=== PATIENT | male | born 1940 | race Caucasian/White ===

== ENCOUNTER → 2016-12-01 | Outpatient (CLI) | payer MEDICARE, OTHER | LOC: OD 08:55 | PROVIDERS: ATTEND Family Medicine | DX: E11.9 Type 2 diabetes mellitus without complications (principal) | CPT/HCPCS: 36415; 83036 ==

== ENCOUNTER → 2017-05-26 | Outpatient (CLI) | payer MEDICARE, OTHER ==
[2017-05-26 09:47] LABS: ANION GAP 10 (5-19); BLOOD UREA NITROGEN 32 mg/dL (7-20); CALCIUM 9.7 mg/dL (8.4-10.2); CARBON DIOXIDE 28 mmol/L (22-30); CHLORIDE 103 mmol/L (98-107); CHOLESTEROL 99.15 mg/dL (0-200); CREATININE RESULT 1.66 mg/dL (0.52-1.25); Direct HDL 34 mg/dL (>40); GLUCOSE 101 mg/dL (75-110); POTASSIUM 4.6 mmol/L (3.6-5.0); SODIUM 141.4 mmol/L (137-145); TRIGLYCERIDES 97 mg/dL (<150)
[2017-05-26 09:58] LABS: DIRECT LDL 49 mg/dL (<100)
== END ==
LOC: OD 08:30
PROVIDERS: ATTEND Family Medicine
DX: E11.9 Type 2 diabetes mellitus without complications (principal); E78.5 Hyperlipidemia, unspecified; I10 Essential (primary) hypertension; Z79.899 Other long term (current) drug therapy
CPT/HCPCS: 36415; 80048; 80061; 82043; 83036; 84443

== ENCOUNTER → 2017-09-14 | Outpatient (CLI) | payer MEDICARE, OTHER | LOC: OD 10:49 | PROVIDERS: ATTEND Family Medicine | DX: E11.9 Type 2 diabetes mellitus without complications (principal) | CPT/HCPCS: 36415; 83036 ==

== ENCOUNTER 2017-11-09 16:56 | Inpatient (IN) | payer MEDICARE, OTHER ==
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
[2017-11-09 19:58] LABS: ABSOLUTE EOSINOPHILS # (AUTO) 0.2 10^3/uL (0.0-0.6); ABSOLUTE MONOCYTES (AUTO) 0.9 10^3/uL (0.1-1.4); ABSOLUTE NEUT (AUTO) 5.1 10^3/uL (1.7-8.2); BASOPHILS % (AUTO) 0.3 % (0-2); EOSINOPHILS % (AUTO) 2.2 % (0-6); HEMATOCRIT 43.8 % (37.9-51.0); HEMOGLOBIN 14.9 g/dL (13.5-17.0); LYMPHOCYTES % (AUTO) 32.3 % (13-45); MEAN CORPUSCULAR HEMOGLOBIN 29.8 pg (27.0-33.4); MEAN CORPUSCULAR HGB CONC 33.9 g/dL (32.0-36.0); MEAN CORPUSCULAR VOLUME 88 fl (80-97); MONOCYTES % (AUTO) 9.9 % (3-13); PLATELET COUNT 231 10^3/uL (150-450); RED BLOOD COUNT 4.99 10^6/uL (4.35-5.55); RED CELL DISTRIBUTION WIDTH 12.8 % (11.5-14.0); SEGMENTED NEUTROPHILS % (AUTO) 55.3 % (42-78); TOTAL CELLS COUNTED % (AUTO) 100 %; WHITE BLOOD COUNT 9.3 10^3/uL (4.0-10.5)
--- NOTE | 2017-11-09 20:11 | RADIOLOGY REPORT (SQ) ---
EXAM DESCRIPTION: CT HEAD WITHOUT COMPLETED DATE/TIME: 11/09/2017 7:59 pm REASON FOR STUDY: ams COMPARISON: None. TECHNIQUE: Axial images acquired through the brain without intravenous contrast. Images reviewed wi th bone, brain and subdural windows. Additional sagittal and coronal reconstructions were generated. Images stored on PACS. All CT scanners at this facility use dose modulation, iterative reconstruction, and/or weight based d osing when appropriate to reduce radiation dose to as low as reasonably achievable (ALARA). [facility]: Dose Right [facility]: CareDose [facility]: Dose Right [facility]: Teradose 4D [facility]: Smart [employer] RADIATION DOSE: CT Rad equipment meets quality standard of care and radiation dose reduction techniq ues were employed. CTDIvol: 53.2 mGy. DLP: 1097 mGy-cm. mGy. LIMITATIONS: None. FINDINGS: VENTRICLES: Prominent ventricles secondary to involutional atrophy. CEREBRUM: Cortical atrophy. No masses. No hemorrhage. No midline shift. No evidence for acute inf arction. Normal kelly/white matter differentiation. No areas of low density in the white matter. CEREBELLUM: No masses. No hemorrhage. No alteration of density. No evidence for acute infarction. EXTRAAXIAL SPACES: No fluid collections. No masses. ORBITS AND GLOBE: No intra- or extraconal masses. Normal contour of globe without masses. CALVARIUM: No fracture. PARANASAL SINUSES: No fluid or mucosal thickening. SOFT TISSUES: No mass or hematoma. OTHER: No other significant finding. IMPRESSION: Involutional changes of aging with no acute intracranial imaging findings. EVIDENCE OF ACUTE STROKE: NO. COMMENT: Quality ID # [id number]: Final reports with documentation of one or more dose reduction techniques (e.g., Automated exposure control, adjustment of the mA and/or kV according to patient size, use of iterative reconstruction technique) TECHNICAL DOCUMENTATION: JOB ID: [id number] [employer]- All Rights Reserved Reading location - IP/workstation name: [email or web address]
[2017-11-09 20:21] LABS: ALANINE AMINOTRANSFERASE 35 U/L (21-72); ALBUMIN 4.4 g/dL (3.5-5.0); ALKALINE PHOSPHATASE 110 U/L (38-126); ANION GAP 11 (5-19); ASPARTATE AMINO TRANSFERASE 18 U/L (17-59); BILIRUBIN,DIRECT 0.1 mg/dL (0.0-0.4); BILIRUBIN,TOTAL 0.5 mg/dL (0.2-1.3); BLOOD UREA NITROGEN 42 mg/dL (7-20); CALCIUM 10.3 mg/dL (8.4-10.2); CARBON DIOXIDE 29 mmol/L (22-30); CHLORIDE 97 mmol/L (98-107); CREATINE KINASE 58 U/L (55-170); GLUCOSE 104 mg/dL (75-110); SODIUM 136.8 mmol/L (137-145); TOTAL PROTEIN 6.9 g/dL (6.3-8.2)
[2017-11-09 20:33] LABS: CREATINE KINASE MB 0.35 ng/mL (<4.55)
[2017-11-09 20:36] LABS: TROPONIN I < 0.012 ng/mL
--- NOTE | 2017-11-09 20:37 | RADIOLOGY REPORT (SQ) ---
EXAM DESCRIPTION: CHEST PA/LAT COMPLETED DATE/TIME: 11/09/2017 8:04 pm REASON FOR STUDY: ams COMPARISON: None. EXAM PARAMETERS: NUMBER OF VIEWS: two views TECHNIQUE: Digital Frontal and Lateral radiographic views of the chest acquired. RADIATION DOSE: NA LIMITATIONS: none FINDINGS: LUNGS AND PLEURA: There is mild opacification in the left base laterally involving the cos tophrenic angle. MEDIASTINUM AND HILAR STRUCTURES: No masses or contour abnormalities. HEART AND VASCULAR STRUCTURES: Heart normal size. No evidence for failure. BONES: No acute findings. HARDWARE: None in the chest. OTHER: No other significant finding. IMPRESSION: Cannot exclude a limited infiltrate in the left base. TECHNICAL DOCUMENTATION: JOB ID: [id number] [employer]- All Rights Reserved Reading location - IP/workstation name: [email or web address]
[2017-11-09 20:51] LABS: APPEARANCE,URINE CLEAR; BILIRUBIN,URINE NEGATIVE (NEGATIVE); COLOR,URINE STRAW; GLUCOSE, URINE NEGATIVE (NEGATIVE); KETONES,URINE NEGATIVE (NEGATIVE); PROTEIN,URINE NEGATIVE (NEGATIVE)
[2017-11-09 20:52] LABS: LEUKOCYTE ESTERASE,URINE NEGATIVE (NEGATIVE); NITRITE,URINE NEGATIVE (NEGATIVE); UROBILINOGEN,URINE NEGATIVE mg/dL (<2.0)
[2017-11-09] MEDS ORDERED: LORAZEPAM INJ 2 MG/1 ML VIAL IM ONE (21:54)
[2017-11-09] MEDS ORDERED: RISPERIDONE 0.25 MG TABLET PO ONE (22:44)
[2017-11-09] MEDS ORDERED: MIRTAZAPINE 15 MG TABLET PO ONE (22:44)
[2017-11-10] MEDS ORDERED: MAGNESIUM HYDROXIDE SUSP 30 ML UDCUP PO PRN (04:53)
[2017-11-10] MEDS ORDERED: DEXTROSE 50%-WATER 25 GM/50 ML DISP.SYRIN IV PRN ×2 (04:53)
[2017-11-10] MEDS ORDERED: INSULIN LISPRO 100 UNIT/ML 3 ML VIAL SUBCUT PRN (04:53)
[2017-11-10] MEDS ORDERED: MAG HYDROX/AL HYDROX/SIMETH SUSP 30 ML UDCUP PO PRN (04:53)
[2017-11-10] MEDS ORDERED: IPRATROPIUM/ALBUTEROL 0.5-2.5 MG/3 ML AMPUL NEB PRN (04:53)
[2017-11-10] MEDS ORDERED: DEXTROSE 40% GEL 15 GM TUBE PO PRN ×2 (04:53)
[2017-11-10] MEDS ORDERED: ACETAMINOPHEN 325 MG TABLET PO PRN (04:53)
[2017-11-10] MEDS ORDERED: GLUCAGON,HUMAN RECOMB 1 MG INJ IM PRN (04:53)
[2017-11-10 06:15] LABS: ABSOLUTE EOSINOPHILS # (AUTO) 0.2 10^3/uL (0.0-0.6); ABSOLUTE LYMPHOCYTES (AUTO) 2.6 10^3/uL (0.5-4.7); ABSOLUTE MONOCYTES (AUTO) 0.9 10^3/uL (0.1-1.4); ABSOLUTE NEUT (AUTO) 4.9 10^3/uL (1.7-8.2); BASOPHILS % (AUTO) 0.2 % (0-2); EOSINOPHILS % (AUTO) 2.4 % (0-6); HEMATOCRIT 40.5 % (37.9-51.0); HEMOGLOBIN 14.2 g/dL (13.5-17.0); LYMPHOCYTES % (AUTO) 29.9 % (13-45); MEAN CORPUSCULAR HEMOGLOBIN 30.3 pg (27.0-33.4); MEAN CORPUSCULAR VOLUME 87 fl (80-97); MONOCYTES % (AUTO) 10.1 % (3-13); PLATELET COUNT 210 10^3/uL (150-450); RED BLOOD COUNT 4.68 10^6/uL (4.35-5.55); RED CELL DISTRIBUTION WIDTH 12.7 % (11.5-14.0); SEGMENTED NEUTROPHILS % (AUTO) 57.4 % (42-78); TOTAL CELLS COUNTED % (AUTO) 100 %; WHITE BLOOD COUNT 8.6 10^3/uL (4.0-10.5)
[2017-11-10 06:25] LABS: ANION GAP 11 (5-19); BLOOD UREA NITROGEN 38 mg/dL (7-20); CALCIUM 9.9 mg/dL (8.4-10.2); CARBON DIOXIDE 28 mmol/L (22-30); CHLORIDE 98 mmol/L (98-107); GLUCOSE 108 mg/dL (75-110); POTASSIUM 3.8 mmol/L (3.6-5.0); SODIUM 137.2 mmol/L (137-145)
[2017-11-10 06:37] LABS: CREATINE KINASE MB 0.53 ng/mL (<4.55)
[2017-11-10 06:39] LABS: TROPONIN I < 0.012 ng/mL
[2017-11-10] MEDS: NORMAL SALINE 1000 ML 1,000 ML IV PRN ×2 (06:41→11:50)
[2017-11-10] MEDS: HEPARIN SOD (PORCINE) 5,000 UNIT/ML 1 ML SYRINGE SUBCUT SCH ×3 (06:42→22:04)
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
--- NOTE | 2017-11-10 07:39 | EKG REPORT ---
SEVERITY:- ABNORMAL ECG - SINUS RHYTHM LEFT ANTERIOR FASCICULAR BLOCK NONSPECIFIC ST-T CHANGES- INFERIOR LEADS : Confirmed by: Ghassan Wilson MD 10-Nov-2017 07:38:43
[2017-11-10] MEDS ORDERED: DOCUSATE SODIUM 100 MG CAPSULE PO SCH (10:00)
[2017-11-10] MEDS ORDERED: RISPERIDONE 0.5 MG TAB.RAPDIS PO SCH (10:00)
[2017-11-10] MEDS ORDERED: CITALOPRAM HYDROBROMIDE 20 MG TABLET PO SCH (10:00)
[2017-11-10] MEDS: DOCUSATE SODIUM 100 MG CAPSULE PO SCH ×2 (10:52→18:09)
[2017-11-10] MEDS: TAMSULOSIN HCL 0.4 MG CAP.SR.24H PO SCH (10:52)
[2017-11-10] MEDS: FINASTERIDE 5 MG TABLET PO SCH (10:53)
[2017-11-10] MEDS: ASPIRIN 325 MG TABLET, ENT COATED PO SCH (10:53)
[2017-11-10] MEDS: SIMVASTATIN 10 MG TABLET PO SCH (10:54)
[2017-11-10 11:43] LABS: CREATINE KINASE MB 0.58 ng/mL (<4.55)
[2017-11-10 11:52] LABS: TROPONIN I < 0.012 ng/mL
[2017-11-10] MEDS ORDERED: LORAZEPAM 0.5 MG TABLET PO PRN (17:05)
[2017-11-10] MEDS ORDERED: LORAZEPAM INJ 2 MG/1 ML VIAL IV PRN (17:08)
[2017-11-10] MEDS ORDERED: GLIMEPIRIDE 1 MG TABLET PO ONE ×2 (17:30→18:30)
[2017-11-10 17:43] LABS: CREATINE KINASE MB 0.62 ng/mL (<4.55)
[2017-11-10 17:47] LABS: TROPONIN I < 0.012 ng/mL
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
[2017-11-10] MEDS ORDERED: MIRTAZAPINE 15 MG TABLET PO SCH (22:00)
[2017-11-10] MEDS: BUSPIRONE HCL 10 MG TABLET PO SCH (22:04)
[2017-11-10] MEDS: RISPERIDONE 1 MG TABLET PO SCH (22:05)
[2017-11-10] MEDS: TRAZODONE HCL 50 MG TABLET PO SCH (22:05)
[2017-11-10] MEDS: MEMANTINE HCL 10 MG TABLET PO SCH (22:05)
[2017-11-11 05:08] LABS: ABSOLUTE EOSINOPHILS # (AUTO) 0.2 10^3/uL (0.0-0.6); ABSOLUTE LYMPHOCYTES (AUTO) 2.5 10^3/uL (0.5-4.7); ABSOLUTE MONOCYTES (AUTO) 0.8 10^3/uL (0.1-1.4); ABSOLUTE NEUT (AUTO) 4.5 10^3/uL (1.7-8.2); BASOPHILS % (AUTO) 0.3 % (0-2); HEMATOCRIT 40.4 % (37.9-51.0); HEMOGLOBIN 13.7 g/dL (13.5-17.0); LYMPHOCYTES % (AUTO) 30.6 % (13-45); MEAN CORPUSCULAR HEMOGLOBIN 29.9 pg (27.0-33.4); MEAN CORPUSCULAR VOLUME 88 fl (80-97); MONOCYTES % (AUTO) 10.2 % (3-13); PLATELET COUNT 211 10^3/uL (150-450); RED BLOOD COUNT 4.59 10^6/uL (4.35-5.55); RED CELL DISTRIBUTION WIDTH 12.7 % (11.5-14.0); SEGMENTED NEUTROPHILS % (AUTO) 55.9 % (42-78); TOTAL CELLS COUNTED % (AUTO) 100 %; WHITE BLOOD COUNT 8.1 10^3/uL (4.0-10.5)
[2017-11-11] MEDS: HEPARIN SOD (PORCINE) 5,000 UNIT/ML 1 ML SYRINGE SUBCUT SCH ×3 (05:40→21:46)
[2017-11-11 06:00] LABS: ANION GAP 11 (5-19); BLOOD UREA NITROGEN 29 mg/dL (7-20); CALCIUM 9.7 mg/dL (8.4-10.2); CARBON DIOXIDE 26 mmol/L (22-30); CHLORIDE 101 mmol/L (98-107); GLUCOSE 104 mg/dL (75-110); POTASSIUM 3.8 mmol/L (3.6-5.0); SODIUM 137.5 mmol/L (137-145)
[2017-11-11] MEDS ORDERED: NORMAL SALINE 1000 ML 1,000 ML IV PRN (07:39)
[2017-11-11] MEDS ORDERED: ASPIRIN 325 MG TABLET PO SCH (10:00)
[2017-11-11] MEDS ORDERED: (PENDING PHARMACY ID) (Telmisartan/Hydrochlorothiazid [Micardis Hct 80-25 Mg Tablet] 1 TAB PO SCH (10:00)
[2017-11-11] MEDS: SIMVASTATIN 10 MG TABLET PO SCH (10:48)
[2017-11-11] MEDS: DOCUSATE SODIUM 100 MG CAPSULE PO SCH ×2 (10:48→18:39)
[2017-11-11] MEDS: HYDROCHLOROTHIAZIDE 25 MG TABLET PO SCH (10:48)
[2017-11-11] MEDS: ASPIRIN 325 MG TABLET, ENT COATED PO SCH (10:48)
[2017-11-11] MEDS: DONEPEZIL HCL 5 MG TABLET PO SCH (10:49)
[2017-11-11] MEDS: RISPERIDONE 1 MG TABLET PO SCH ×2 (10:49→21:46)
[2017-11-11] MEDS: MEMANTINE HCL 10 MG TABLET PO SCH ×2 (10:49→21:47)
[2017-11-11] MEDS: CELECOXIB 200 MG CAPSULE PO SCH (10:49)
[2017-11-11] MEDS: BUSPIRONE HCL 10 MG TABLET PO SCH ×2 (10:49→21:47)
[2017-11-11] MEDS: FINASTERIDE 5 MG TABLET PO SCH (10:49)
[2017-11-11] MEDS: LOSARTAN POTASSIUM 50 MG TABLET PO SCH (10:50)
[2017-11-11] MEDS: POTASSIUM CHLORIDE 10 MEQ TABLET.SA PO SCH (10:50)
[2017-11-11] MEDS: TAMSULOSIN HCL 0.4 MG CAP.SR.24H PO SCH (10:50)
[2017-11-11] MEDS: CITALOPRAM HYDROBROMIDE 20 MG TABLET PO SCH (10:50)
[2017-11-11] MEDS: GLIMEPIRIDE 1 MG TABLET PO SCH ×2 (10:54→18:38)
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
[2017-11-11] MEDS: TRAZODONE HCL 50 MG TABLET PO SCH (21:47)
[2017-11-12 06:16] LABS: ANION GAP 9 (5-19); BLOOD UREA NITROGEN 27 mg/dL (7-20); CALCIUM 9.4 mg/dL (8.4-10.2); CARBON DIOXIDE 27 mmol/L (22-30); CHLORIDE 102 mmol/L (98-107); GLUCOSE 90 mg/dL (75-110); POTASSIUM 3.7 mmol/L (3.6-5.0); SODIUM 137.8 mmol/L (137-145)
[2017-11-12] MEDS: HEPARIN SOD (PORCINE) 5,000 UNIT/ML 1 ML SYRINGE SUBCUT SCH ×3 (06:59→21:21)
[2017-11-12] MEDS: LOSARTAN POTASSIUM 50 MG TABLET PO SCH (11:23)
[2017-11-12] MEDS: HYDROCHLOROTHIAZIDE 25 MG TABLET PO SCH (11:23)
[2017-11-12] MEDS: POTASSIUM CHLORIDE 10 MEQ TABLET.SA PO SCH (11:24)
[2017-11-12] MEDS: RISPERIDONE 1 MG TABLET PO SCH ×2 (11:24→21:22)
[2017-11-12] MEDS: DOCUSATE SODIUM 100 MG CAPSULE PO SCH ×2 (11:24→17:51)
[2017-11-12] MEDS: MEMANTINE HCL 10 MG TABLET PO SCH ×2 (11:25→21:22)
[2017-11-12] MEDS: CITALOPRAM HYDROBROMIDE 20 MG TABLET PO SCH (11:25)
[2017-11-12] MEDS: DONEPEZIL HCL 5 MG TABLET PO SCH (11:25)
[2017-11-12] MEDS: ASPIRIN 325 MG TABLET, ENT COATED PO SCH (11:25)
[2017-11-12] MEDS: CELECOXIB 200 MG CAPSULE PO SCH (11:26)
[2017-11-12] MEDS: GLIMEPIRIDE 1 MG TABLET PO SCH ×2 (11:26→17:51)
[2017-11-12] MEDS: BUSPIRONE HCL 10 MG TABLET PO SCH ×2 (11:26→21:22)
[2017-11-12] MEDS: SIMVASTATIN 10 MG TABLET PO SCH (11:26)
[2017-11-12] MEDS: TAMSULOSIN HCL 0.4 MG CAP.SR.24H PO SCH (11:27)
[2017-11-12] MEDS: FINASTERIDE 5 MG TABLET PO SCH (11:27)
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
[2017-11-12] MEDS: TRAZODONE HCL 50 MG TABLET PO SCH (21:21)
[2017-11-13] MEDS: HEPARIN SOD (PORCINE) 5,000 UNIT/ML 1 ML SYRINGE SUBCUT SCH ×3 (06:12→21:37)
[2017-11-13] MEDS: GLIMEPIRIDE 1 MG TABLET PO SCH ×2 (09:10→18:19)
[2017-11-13] MEDS: ASPIRIN 325 MG TABLET, ENT COATED PO SCH (09:10)
[2017-11-13] MEDS: CELECOXIB 200 MG CAPSULE PO SCH (09:10)
[2017-11-13] MEDS: DOCUSATE SODIUM 100 MG CAPSULE PO SCH ×2 (09:10→18:19)
[2017-11-13] MEDS: FINASTERIDE 5 MG TABLET PO SCH (09:10)
[2017-11-13] MEDS: RISPERIDONE 1 MG TABLET PO SCH ×2 (09:10→21:35)
[2017-11-13] MEDS: LOSARTAN POTASSIUM 50 MG TABLET PO SCH (09:11)
[2017-11-13] MEDS: HYDROCHLOROTHIAZIDE 25 MG TABLET PO SCH (09:11)
[2017-11-13] MEDS: DONEPEZIL HCL 5 MG TABLET PO SCH (09:11)
[2017-11-13] MEDS: POTASSIUM CHLORIDE 10 MEQ TABLET.SA PO SCH (09:11)
[2017-11-13] MEDS: SIMVASTATIN 10 MG TABLET PO SCH (09:11)
[2017-11-13] MEDS: BUSPIRONE HCL 10 MG TABLET PO SCH ×2 (09:12→21:36)
[2017-11-13] MEDS: CITALOPRAM HYDROBROMIDE 20 MG TABLET PO SCH (09:12)
[2017-11-13] MEDS: MEMANTINE HCL 10 MG TABLET PO SCH ×2 (09:12→21:37)
[2017-11-13] MEDS: TAMSULOSIN HCL 0.4 MG CAP.SR.24H PO SCH (09:12)
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
[2017-11-13] MEDS ORDERED: TUBERCULIN,PURIF.PROT.DERIV. 5 TU/0.1 ML TEST 1 ML VIAL ID ONE (15:00)
[2017-11-13] MEDS: HALOPERIDOL 0.5 MG TABLET PO PRN (19:38)
[2017-11-13] MEDS: TRAZODONE HCL 50 MG TABLET PO SCH (21:35)
[2017-11-14 05:02] LABS: ANION GAP 8 (5-19); BLOOD UREA NITROGEN 32 mg/dL (7-20); CALCIUM 9.6 mg/dL (8.4-10.2); CARBON DIOXIDE 26 mmol/L (22-30); CHLORIDE 103 mmol/L (98-107); GLUCOSE 68 mg/dL (75-110); POTASSIUM 3.8 mmol/L (3.6-5.0); SODIUM 136.6 mmol/L (137-145)
[2017-11-14] MEDS: HEPARIN SOD (PORCINE) 5,000 UNIT/ML 1 ML SYRINGE SUBCUT SCH ×3 (06:53→21:39)
--- NOTE | 2017-11-14 10:42 | EKG REPORT ---
SEVERITY:- ABNORMAL ECG - SINUS RHYTHM LEFT AXIS DEVIATION ABNRM R PROG, CONSIDER ASMI OR LEAD PLACEMENT NONSPECIFIC T ABNORMALITIES, ANT-LAT LEADS : Confirmed by: Dayan Ospina 14-Nov-2017 10:41:29
[2017-11-14] MEDS: DOCUSATE SODIUM 100 MG CAPSULE PO SCH ×2 (11:25→17:34)
[2017-11-14] MEDS: MEMANTINE HCL 10 MG TABLET PO SCH ×2 (11:25→21:39)
[2017-11-14] MEDS: POTASSIUM CHLORIDE 10 MEQ TABLET.SA PO SCH (11:26)
[2017-11-14] MEDS: RISPERIDONE 1 MG TABLET PO SCH ×2 (11:26→21:39)
[2017-11-14] MEDS: SIMVASTATIN 10 MG TABLET PO SCH (11:27)
[2017-11-14] MEDS: CELECOXIB 200 MG CAPSULE PO SCH (11:27)
[2017-11-14] MEDS: FINASTERIDE 5 MG TABLET PO SCH (11:27)
[2017-11-14] MEDS: DONEPEZIL HCL 5 MG TABLET PO SCH (11:28)
[2017-11-14] MEDS: ASPIRIN 325 MG TABLET, ENT COATED PO SCH (11:28)
[2017-11-14] MEDS: TAMSULOSIN HCL 0.4 MG CAP.SR.24H PO SCH (11:28)
[2017-11-14] MEDS: HYDROCHLOROTHIAZIDE 25 MG TABLET PO SCH (11:28)
[2017-11-14] MEDS: CITALOPRAM HYDROBROMIDE 20 MG TABLET PO SCH (11:29)
[2017-11-14] MEDS: LOSARTAN POTASSIUM 50 MG TABLET PO SCH (11:29)
[2017-11-14] MEDS: BUSPIRONE HCL 10 MG TABLET PO SCH ×2 (11:29→21:39)
[2017-11-14] MEDS: GLIMEPIRIDE 1 MG TABLET PO SCH ×2 (11:29→17:34)
[2017-11-14] MEDS: HALOPERIDOL 0.5 MG TABLET PO PRN (14:29)
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
[2017-11-14] MEDS: TRAZODONE HCL 50 MG TABLET PO SCH (21:39)
[2017-11-15 05:23] LABS: HEMATOCRIT 38.8 % (37.9-51.0); HEMOGLOBIN 13.4 g/dL (13.5-17.0); MEAN CORPUSCULAR HGB CONC 34.6 g/dL (32.0-36.0); MEAN CORPUSCULAR VOLUME 87 fl (80-97); PLATELET COUNT 232 10^3/uL (150-450); RED BLOOD COUNT 4.47 10^6/uL (4.35-5.55); RED CELL DISTRIBUTION WIDTH 12.9 % (11.5-14.0); WHITE BLOOD COUNT 9.3 10^3/uL (4.0-10.5)
[2017-11-15] MEDS: HEPARIN SOD (PORCINE) 5,000 UNIT/ML 1 ML SYRINGE SUBCUT SCH ×3 (06:35→21:41)
[2017-11-15 07:57] LABS: ANION GAP 12 (5-19); BLOOD UREA NITROGEN 36 mg/dL (7-20); CALCIUM 10.1 mg/dL (8.4-10.2); CARBON DIOXIDE 24 mmol/L (22-30); CHLORIDE 100 mmol/L (98-107); GLUCOSE 73 mg/dL (75-110); SODIUM 136.3 mmol/L (137-145)
[2017-11-15] MEDS: DOCUSATE SODIUM 100 MG CAPSULE PO SCH ×2 (10:34→18:02)
[2017-11-15] MEDS: FINASTERIDE 5 MG TABLET PO SCH (10:34)
[2017-11-15] MEDS: TAMSULOSIN HCL 0.4 MG CAP.SR.24H PO SCH (10:34)
[2017-11-15] MEDS: RISPERIDONE 1 MG TABLET PO SCH ×2 (10:35→21:40)
[2017-11-15] MEDS: ASPIRIN 325 MG TABLET, ENT COATED PO SCH (10:35)
[2017-11-15] MEDS: CITALOPRAM HYDROBROMIDE 20 MG TABLET PO SCH (10:35)
[2017-11-15] MEDS: HYDROCHLOROTHIAZIDE 25 MG TABLET PO SCH (10:35)
[2017-11-15] MEDS: LOSARTAN POTASSIUM 50 MG TABLET PO SCH (10:36)
[2017-11-15] MEDS: POTASSIUM CHLORIDE 10 MEQ TABLET.SA PO SCH (10:36)
[2017-11-15] MEDS: CELECOXIB 200 MG CAPSULE PO SCH (10:36)
[2017-11-15] MEDS: MEMANTINE HCL 10 MG TABLET PO SCH ×2 (10:36→21:41)
[2017-11-15] MEDS: GLIMEPIRIDE 1 MG TABLET PO SCH ×2 (10:36→18:02)
[2017-11-15] MEDS: DONEPEZIL HCL 5 MG TABLET PO SCH (10:37)
[2017-11-15] MEDS: BUSPIRONE HCL 10 MG TABLET PO SCH ×2 (10:37→21:41)
[2017-11-15] MEDS: SIMVASTATIN 10 MG TABLET PO SCH (10:37)
[2017-11-15] MEDS: HALOPERIDOL 0.5 MG TABLET PO PRN (13:53)
[2017-11-15] MEDS ORDERED: HALOPERIDOL 0.5 MG TABLET PO PRN (14:45)
[2017-11-15] MEDS ORDERED: HALOPERIDOL 1 MG TABLET PO PRN (15:05)
[2017-11-15] MEDS ORDERED: OLANZAPINE INJ/PF 10 MG SDV IM ONE (15:30)
[2017-11-15] MEDS ORDERED: NORMAL SALINE 1000 ML 500 ML IV ONE (15:47)
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
[2017-11-15] MEDS: NORMAL SALINE 1000 ML 1,000 ML IV PRN ×2 (17:05→21:34)
[2017-11-15] MEDS: TRAZODONE HCL 50 MG TABLET PO SCH (21:40)
[2017-11-16] MEDS: HEPARIN SOD (PORCINE) 5,000 UNIT/ML 1 ML SYRINGE SUBCUT SCH ×3 (05:08→22:02)
[2017-11-16 05:18] LABS: ALANINE AMINOTRANSFERASE 64 U/L (21-72); ALBUMIN 3.3 g/dL (3.5-5.0); ALKALINE PHOSPHATASE 83 U/L (38-126); ANION GAP 9 (5-19); ASPARTATE AMINO TRANSFERASE 33 U/L (17-59); BILIRUBIN,DIRECT 0.4 mg/dL (0.0-0.4); BILIRUBIN,TOTAL 0.4 mg/dL (0.2-1.3); BLOOD UREA NITROGEN 35 mg/dL (7-20); CALCIUM 9.1 mg/dL (8.4-10.2); CARBON DIOXIDE 23 mmol/L (22-30); CHLORIDE 106 mmol/L (98-107); GLUCOSE 64 mg/dL (75-110); POTASSIUM 4.1 mmol/L (3.6-5.0); SODIUM 138.4 mmol/L (137-145); TOTAL PROTEIN 5.7 g/dL (6.3-8.2)
[2017-11-16] MEDS ORDERED: RISPERIDONE 1 MG TABLET PO SCH (10:00)
[2017-11-16] MEDS: POTASSIUM CHLORIDE 10 MEQ TABLET.SA PO SCH (10:41)
[2017-11-16] MEDS: CELECOXIB 200 MG CAPSULE PO SCH (10:41)
[2017-11-16] MEDS: ASPIRIN 325 MG TABLET, ENT COATED PO SCH (10:41)
[2017-11-16] MEDS: DONEPEZIL HCL 5 MG TABLET PO SCH (10:42)
[2017-11-16] MEDS: SIMVASTATIN 10 MG TABLET PO SCH (10:42)
[2017-11-16] MEDS: MEMANTINE HCL 10 MG TABLET PO SCH ×2 (10:42→22:01)
[2017-11-16] MEDS: GLIMEPIRIDE 1 MG TABLET PO SCH ×2 (10:42→17:07)
[2017-11-16] MEDS: CITALOPRAM HYDROBROMIDE 20 MG TABLET PO SCH (10:42)
[2017-11-16] MEDS: LOSARTAN POTASSIUM 50 MG TABLET PO SCH (10:43)
[2017-11-16] MEDS: TAMSULOSIN HCL 0.4 MG CAP.SR.24H PO SCH (10:43)
[2017-11-16] MEDS: BUSPIRONE HCL 10 MG TABLET PO SCH ×2 (10:45→22:01)
[2017-11-16] MEDS: FINASTERIDE 5 MG TABLET PO SCH (10:45)
[2017-11-16] MEDS: HYDROCHLOROTHIAZIDE 25 MG TABLET PO SCH (10:45)
[2017-11-16] MEDS: DOCUSATE SODIUM 100 MG CAPSULE PO SCH ×2 (10:46→17:08)
[2017-11-16] MEDS ORDERED: HALOPERIDOL LACTATE INJ 5 MG/1 ML VIAL IV PRN (13:53)
[2017-11-16] MEDS ORDERED: HALOPERIDOL LACTATE INJ 5 MG/1 ML VIAL IV ONE (14:45)
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
[2017-11-16] MEDS: RISPERIDONE 1 MG TABLET PO SCH (22:01)
[2017-11-16] MEDS: TRAZODONE HCL 50 MG TABLET PO SCH (22:01)
[2017-11-16] MEDS: NORMAL SALINE 1000 ML 1,000 ML IV PRN (22:05)
[2017-11-17] MEDS: HEPARIN SOD (PORCINE) 5,000 UNIT/ML 1 ML SYRINGE SUBCUT SCH ×3 (05:16→22:59)
[2017-11-17] MEDS: CITALOPRAM HYDROBROMIDE 20 MG TABLET PO SCH (10:29)
[2017-11-17] MEDS: TAMSULOSIN HCL 0.4 MG CAP.SR.24H PO SCH (10:29)
[2017-11-17] MEDS: HYDROCHLOROTHIAZIDE 25 MG TABLET PO SCH (10:30)
[2017-11-17] MEDS: BUSPIRONE HCL 10 MG TABLET PO SCH ×2 (10:30→22:52)
[2017-11-17] MEDS: LOSARTAN POTASSIUM 50 MG TABLET PO SCH (10:30)
[2017-11-17] MEDS: CELECOXIB 200 MG CAPSULE PO SCH (10:30)
[2017-11-17] MEDS: POTASSIUM CHLORIDE 10 MEQ TABLET.SA PO SCH (10:31)
[2017-11-17] MEDS: RISPERIDONE 1 MG TABLET PO SCH ×2 (10:31→22:59)
[2017-11-17] MEDS: DONEPEZIL HCL 5 MG TABLET PO SCH (10:31)
[2017-11-17] MEDS: SIMVASTATIN 10 MG TABLET PO SCH (10:31)
[2017-11-17] MEDS: FINASTERIDE 5 MG TABLET PO SCH (10:32)
[2017-11-17] MEDS: ASPIRIN 325 MG TABLET, ENT COATED PO SCH (10:32)
[2017-11-17] MEDS: MEMANTINE HCL 10 MG TABLET PO SCH ×2 (10:32→22:59)
[2017-11-17] MEDS: GLIMEPIRIDE 1 MG TABLET PO SCH ×2 (10:34→16:50)
[2017-11-17] MEDS: DOCUSATE SODIUM 100 MG CAPSULE PO SCH ×2 (10:34→16:50)
[2017-11-17] MEDS: NORMAL SALINE 1000 ML 1,000 ML IV PRN ×2 (13:39→19:14)
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
[2017-11-17] MEDS ORDERED: OLANZAPINE INJ/PF 10 MG SDV IM ONE (17:00)
[2017-11-17] MEDS: TRAZODONE HCL 50 MG TABLET PO SCH (22:57)
[2017-11-18] MEDS: HEPARIN SOD (PORCINE) 5,000 UNIT/ML 1 ML SYRINGE SUBCUT SCH ×3 (05:08→22:07)
[2017-11-18] MEDS: NORMAL SALINE 1000 ML 1,000 ML IV PRN ×2 (05:12→19:52)
[2017-11-18 05:59] LABS: ALANINE AMINOTRANSFERASE 52 U/L (21-72); ALBUMIN 3.1 g/dL (3.5-5.0); ALKALINE PHOSPHATASE 78 U/L (38-126); ANION GAP 8 (5-19); ASPARTATE AMINO TRANSFERASE 23 U/L (17-59); BILIRUBIN,DIRECT 0.3 mg/dL (0.0-0.4); BILIRUBIN,TOTAL 0.3 mg/dL (0.2-1.3); BLOOD UREA NITROGEN 24 mg/dL (7-20); CARBON DIOXIDE 23 mmol/L (22-30); CHLORIDE 111 mmol/L (98-107); GLUCOSE 55 mg/dL (75-110); PHOSPHORUS 3.8 mg/dL (2.5-4.5); POTASSIUM 4.3 mmol/L (3.6-5.0); SODIUM 141.8 mmol/L (137-145); TOTAL PROTEIN 5.5 g/dL (6.3-8.2)
[2017-11-18] MEDS: CELECOXIB 200 MG CAPSULE PO SCH (09:16)
[2017-11-18] MEDS: FINASTERIDE 5 MG TABLET PO SCH (09:16)
[2017-11-18] MEDS: LOSARTAN POTASSIUM 50 MG TABLET PO SCH (09:16)
[2017-11-18] MEDS: POTASSIUM CHLORIDE 10 MEQ TABLET.SA PO SCH (09:16)
[2017-11-18] MEDS: GLIMEPIRIDE 1 MG TABLET PO SCH ×2 (09:17→17:17)
[2017-11-18] MEDS: DOCUSATE SODIUM 100 MG CAPSULE PO SCH ×2 (09:17→17:18)
[2017-11-18] MEDS: DONEPEZIL HCL 5 MG TABLET PO SCH (09:18)
[2017-11-18] MEDS: BUSPIRONE HCL 10 MG TABLET PO SCH ×2 (09:18→22:07)
[2017-11-18] MEDS: TAMSULOSIN HCL 0.4 MG CAP.SR.24H PO SCH (09:18)
[2017-11-18] MEDS: SIMVASTATIN 10 MG TABLET PO SCH (09:18)
[2017-11-18] MEDS: ASPIRIN 325 MG TABLET, ENT COATED PO SCH (09:19)
[2017-11-18] MEDS: HYDROCHLOROTHIAZIDE 25 MG TABLET PO SCH (09:19)
[2017-11-18] MEDS: MEMANTINE HCL 10 MG TABLET PO SCH ×2 (09:19→22:07)
[2017-11-18] MEDS: OLANZAPINE 5 MG TABLET PO SCH (09:25)
[2017-11-18] MEDS: RISPERIDONE 1 MG TABLET PO SCH (10:56)
[2017-11-18] MEDS: CITALOPRAM HYDROBROMIDE 20 MG TABLET PO SCH (11:21)
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
[2017-11-18] MEDS: DIVALPROEX SODIUM 500 MG TAB.SR.24H PO SCH (17:17)
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
[2017-11-18] MEDS ORDERED: RISPERIDONE 0.25 MG TABLET PO SCH (22:00)
[2017-11-19 05:54] LABS: ALANINE AMINOTRANSFERASE 48 U/L (21-72); ALBUMIN 3.1 g/dL (3.5-5.0); ALKALINE PHOSPHATASE 83 U/L (38-126); ANION GAP 7 (5-19); ASPARTATE AMINO TRANSFERASE 20 U/L (17-59); BLOOD UREA NITROGEN 26 mg/dL (7-20); CALCIUM 9.3 mg/dL (8.4-10.2); CARBON DIOXIDE 24 mmol/L (22-30); CHLORIDE 111 mmol/L (98-107); GLUCOSE 88 mg/dL (75-110); POTASSIUM 4.2 mmol/L (3.6-5.0); SODIUM 141.5 mmol/L (137-145); TOTAL PROTEIN 5.3 g/dL (6.3-8.2)
[2017-11-19 06:06] LABS: BILIRUBIN,TOTAL < 0.1 mg/dL (0.2-1.3)
[2017-11-19] MEDS: HEPARIN SOD (PORCINE) 5,000 UNIT/ML 1 ML SYRINGE SUBCUT SCH ×3 (06:35→22:41)
[2017-11-19] MEDS: NORMAL SALINE 1000 ML 1,000 ML IV PRN (06:39)
[2017-11-19] MEDS ORDERED: RISPERIDONE 0.25 MG TABLET PO SCH ×2 (08:00→15:00)
[2017-11-19] MEDS: OLANZAPINE 5 MG TABLET PO SCH (08:08)
[2017-11-19] MEDS: GLIMEPIRIDE 1 MG TABLET PO SCH ×2 (08:09→17:01)
[2017-11-19] MEDS: TAMSULOSIN HCL 0.4 MG CAP.SR.24H PO SCH (09:07)
[2017-11-19] MEDS: ASPIRIN 325 MG TABLET, ENT COATED PO SCH (09:07)
[2017-11-19] MEDS: CITALOPRAM HYDROBROMIDE 20 MG TABLET PO SCH (09:07)
[2017-11-19] MEDS: LOSARTAN POTASSIUM 50 MG TABLET PO SCH (09:07)
[2017-11-19] MEDS: DOCUSATE SODIUM 100 MG CAPSULE PO SCH ×2 (09:08→17:01)
[2017-11-19] MEDS: BUSPIRONE HCL 10 MG TABLET PO SCH ×2 (09:08→22:41)
[2017-11-19] MEDS: SIMVASTATIN 10 MG TABLET PO SCH (09:08)
[2017-11-19] MEDS: HYDROCHLOROTHIAZIDE 25 MG TABLET PO SCH (09:09)
[2017-11-19] MEDS: MEMANTINE HCL 10 MG TABLET PO SCH ×2 (09:09→22:41)
[2017-11-19] MEDS: DONEPEZIL HCL 5 MG TABLET PO SCH (09:09)
[2017-11-19] MEDS: CELECOXIB 200 MG CAPSULE PO SCH (09:10)
[2017-11-19] MEDS: FINASTERIDE 5 MG TABLET PO SCH (09:10)
[2017-11-19] MEDS: DIVALPROEX SODIUM 500 MG TAB.SR.24H PO SCH (09:10)
[2017-11-19] MEDS: POTASSIUM CHLORIDE 10 MEQ TABLET.SA PO SCH (09:11)
[2017-11-19] MEDS ORDERED: HYDRALAZINE HCL INJ/PF 20 MG/1 ML SDV IV PRN (11:28)
[2017-11-19] MEDS ORDERED: AMLODIPINE BESYLATE 5 MG TABLET PO ONE (13:00)
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
[2017-11-19] MEDS ORDERED: RISPERIDONE 0.25 MG TABLET PO ONE (16:30)
--- NOTE | 2017-11-19 16:41 | EKG REPORT ---
SEVERITY:- ABNORMAL ECG - SINUS RHYTHM LEFT ANTERIOR FASCICULAR BLOCK MINIMAL ST DEPRESSION, INFERIOR LEADS : Confirmed by: Dayan Ospina 19-Nov-2017 16:41:15
[2017-11-19] MEDS: DIVALPROEX SODIUM 250 MG TABLET.DR PO SCH (18:27)
[2017-11-20 05:59] LABS: HEMATOCRIT 35.1 % (37.9-51.0); HEMOGLOBIN 12.1 g/dL (13.5-17.0); MEAN CORPUSCULAR HEMOGLOBIN 30.4 pg (27.0-33.4); MEAN CORPUSCULAR HGB CONC 34.6 g/dL (32.0-36.0); MEAN CORPUSCULAR VOLUME 88 fl (80-97); PLATELET COUNT 224 10^3/uL (150-450); RED BLOOD COUNT 3.99 10^6/uL (4.35-5.55); RED CELL DISTRIBUTION WIDTH 12.9 % (11.5-14.0)
[2017-11-20] MEDS: HEPARIN SOD (PORCINE) 5,000 UNIT/ML 1 ML SYRINGE SUBCUT SCH ×3 (06:24→23:54)
[2017-11-20 06:26] LABS: ALANINE AMINOTRANSFERASE 40 U/L (21-72); ALBUMIN 3.3 g/dL (3.5-5.0); ALKALINE PHOSPHATASE 75 U/L (38-126); ANION GAP 11 (5-19); ASPARTATE AMINO TRANSFERASE 18 U/L (17-59); BILIRUBIN,DIRECT 0.1 mg/dL (0.0-0.4); BILIRUBIN,TOTAL 0.3 mg/dL (0.2-1.3); BLOOD UREA NITROGEN 26 mg/dL (7-20); CALCIUM 9.4 mg/dL (8.4-10.2); CARBON DIOXIDE 23 mmol/L (22-30); CHLORIDE 108 mmol/L (98-107); GLUCOSE 71 mg/dL (75-110); SODIUM 141.6 mmol/L (137-145); TOTAL PROTEIN 5.5 g/dL (6.3-8.2)
--- NOTE | 2017-11-20 06:55 | EKG REPORT ---
SEVERITY:- OTHERWISE NORMAL ECG - SINUS RHYTHM LOW VOLTAGE IN FRONTAL LEADS QTC 451MS : Confirmed by: Ghassan Wilson MD 20-Nov-2017 06:54:59
[2017-11-20] MEDS ORDERED: RISPERIDONE 0.25 MG TABLET PO SCH (08:00)
[2017-11-20] MEDS: MEMANTINE HCL 10 MG TABLET PO SCH ×2 (11:39→23:54)
[2017-11-20] MEDS: HYDROCHLOROTHIAZIDE 25 MG TABLET PO SCH (11:39)
[2017-11-20] MEDS: DIVALPROEX SODIUM 250 MG TABLET.DR PO SCH ×2 (11:39→16:17)
[2017-11-20] MEDS: POTASSIUM CHLORIDE 10 MEQ TABLET.SA PO SCH (11:40)
[2017-11-20] MEDS: TAMSULOSIN HCL 0.4 MG CAP.SR.24H PO SCH (11:40)
[2017-11-20] MEDS: BUSPIRONE HCL 10 MG TABLET PO SCH ×2 (11:40→23:54)
[2017-11-20] MEDS: SIMVASTATIN 10 MG TABLET PO SCH (11:40)
[2017-11-20] MEDS: LOSARTAN POTASSIUM 50 MG TABLET PO SCH (11:40)
[2017-11-20] MEDS: AMLODIPINE BESYLATE 5 MG TABLET PO SCH (11:40)
[2017-11-20] MEDS: DOCUSATE SODIUM 100 MG CAPSULE PO SCH ×2 (11:41→16:17)
[2017-11-20] MEDS: FINASTERIDE 5 MG TABLET PO SCH (11:41)
[2017-11-20] MEDS: ASPIRIN 325 MG TABLET, ENT COATED PO SCH (11:41)
[2017-11-20] MEDS: GLIMEPIRIDE 1 MG TABLET PO SCH ×2 (11:42→16:17)
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
[2017-11-21] MEDS: HEPARIN SOD (PORCINE) 5,000 UNIT/ML 1 ML SYRINGE SUBCUT SCH ×3 (06:33→23:46)
[2017-11-21 07:24] LABS: ALANINE AMINOTRANSFERASE 42 U/L (21-72); ALBUMIN 4.5 g/dL (3.5-5.0); ALKALINE PHOSPHATASE 97 U/L (38-126); ANION GAP 13 (5-19); ASPARTATE AMINO TRANSFERASE 27 U/L (17-59); BILIRUBIN,DIRECT 0.4 mg/dL (0.0-0.4); BILIRUBIN,TOTAL 0.6 mg/dL (0.2-1.3); BLOOD UREA NITROGEN 25 mg/dL (7-20); CALCIUM 10.4 mg/dL (8.4-10.2); CARBON DIOXIDE 24 mmol/L (22-30); CHLORIDE 105 mmol/L (98-107); GLUCOSE 106 mg/dL (75-110); POTASSIUM 4.2 mmol/L (3.6-5.0); SODIUM 142.3 mmol/L (137-145); TOTAL PROTEIN 7.7 g/dL (6.3-8.2)
[2017-11-21] MEDS: LOSARTAN POTASSIUM 50 MG TABLET PO SCH (10:55)
[2017-11-21] MEDS: ASPIRIN 325 MG TABLET, ENT COATED PO SCH (10:56)
[2017-11-21] MEDS: FINASTERIDE 5 MG TABLET PO SCH (10:56)
[2017-11-21] MEDS: DIVALPROEX SODIUM 250 MG TABLET.DR PO SCH ×2 (10:56→18:13)
[2017-11-21] MEDS: POTASSIUM CHLORIDE 10 MEQ TABLET.SA PO SCH (10:56)
[2017-11-21] MEDS: MEMANTINE HCL 10 MG TABLET PO SCH ×2 (10:57→23:44)
[2017-11-21] MEDS: DOCUSATE SODIUM 100 MG CAPSULE PO SCH ×2 (10:57→18:13)
[2017-11-21] MEDS: SIMVASTATIN 10 MG TABLET PO SCH (10:57)
[2017-11-21] MEDS: AMLODIPINE BESYLATE 5 MG TABLET PO SCH (10:57)
[2017-11-21] MEDS: HYDROCHLOROTHIAZIDE 25 MG TABLET PO SCH (10:57)
[2017-11-21] MEDS: BUSPIRONE HCL 10 MG TABLET PO SCH ×2 (10:57→23:45)
[2017-11-21] MEDS: TAMSULOSIN HCL 0.4 MG CAP.SR.24H PO SCH (10:57)
[2017-11-21] MEDS: GLIMEPIRIDE 1 MG TABLET PO SCH ×2 (10:57→18:14)
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
[2017-11-22 05:14] LABS: ALANINE AMINOTRANSFERASE 39 U/L (21-72); ALBUMIN 3.7 g/dL (3.5-5.0); ALKALINE PHOSPHATASE 81 U/L (38-126); ANION GAP 12 (5-19); ASPARTATE AMINO TRANSFERASE 18 U/L (17-59); BILIRUBIN,DIRECT 0.1 mg/dL (0.0-0.4); BILIRUBIN,TOTAL 0.4 mg/dL (0.2-1.3); BLOOD UREA NITROGEN 29 mg/dL (7-20); CALCIUM 9.8 mg/dL (8.4-10.2); CARBON DIOXIDE 26 mmol/L (22-30); CHLORIDE 104 mmol/L (98-107); GLUCOSE 75 mg/dL (75-110); SODIUM 142.3 mmol/L (137-145); TOTAL PROTEIN 6.1 g/dL (6.3-8.2)
[2017-11-22] MEDS: HEPARIN SOD (PORCINE) 5,000 UNIT/ML 1 ML SYRINGE SUBCUT SCH ×3 (07:07→20:54)
[2017-11-22] MEDS: GLIMEPIRIDE 1 MG TABLET PO SCH (09:54)
[2017-11-22] MEDS: TAMSULOSIN HCL 0.4 MG CAP.SR.24H PO SCH (10:26)
[2017-11-22] MEDS: DOCUSATE SODIUM 100 MG CAPSULE PO SCH ×2 (10:26→18:09)
[2017-11-22] MEDS: SIMVASTATIN 10 MG TABLET PO SCH (10:26)
[2017-11-22] MEDS: BUSPIRONE HCL 10 MG TABLET PO SCH ×2 (10:26→20:53)
[2017-11-22] MEDS: POTASSIUM CHLORIDE 10 MEQ TABLET.SA PO SCH (10:26)
[2017-11-22] MEDS: MEMANTINE HCL 10 MG TABLET PO SCH ×2 (10:26→20:54)
[2017-11-22] MEDS: FINASTERIDE 5 MG TABLET PO SCH (10:26)
[2017-11-22] MEDS: ASPIRIN 325 MG TABLET, ENT COATED PO SCH (10:26)
[2017-11-22] MEDS: HYDROCHLOROTHIAZIDE 25 MG TABLET PO SCH (10:26)
[2017-11-22] MEDS: LOSARTAN POTASSIUM 50 MG TABLET PO SCH (10:26)
[2017-11-22] MEDS: AMLODIPINE BESYLATE 5 MG TABLET PO SCH (10:27)
[2017-11-22] MEDS ORDERED: DIVALPROEX SODIUM 250 MG TABLET.DR PO ONE (11:00)
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
[2017-11-22] MEDS: DIVALPROEX SODIUM 250 MG TABLET.DR PO SCH (18:08)
[2017-11-23] MEDS: HEPARIN SOD (PORCINE) 5,000 UNIT/ML 1 ML SYRINGE SUBCUT SCH ×3 (05:09→22:03)
[2017-11-23 06:11] LABS: ALANINE AMINOTRANSFERASE 54 U/L (21-72); ALBUMIN 4.2 g/dL (3.5-5.0); ALKALINE PHOSPHATASE 88 U/L (38-126); ANION GAP 13 (5-19); ASPARTATE AMINO TRANSFERASE 26 U/L (17-59); BILIRUBIN,DIRECT 0.2 mg/dL (0.0-0.4); BILIRUBIN,TOTAL 0.4 mg/dL (0.2-1.3); BLOOD UREA NITROGEN 35 mg/dL (7-20); CALCIUM 10.5 mg/dL (8.4-10.2); CARBON DIOXIDE 26 mmol/L (22-30); CHLORIDE 103 mmol/L (98-107); GLUCOSE 114 mg/dL (75-110); POTASSIUM 4.4 mmol/L (3.6-5.0); TOTAL PROTEIN 6.6 g/dL (6.3-8.2)
[2017-11-23] MEDS: DOCUSATE SODIUM 100 MG CAPSULE PO SCH ×2 (10:13→17:50)
[2017-11-23] MEDS: ASPIRIN 325 MG TABLET, ENT COATED PO SCH (10:13)
[2017-11-23] MEDS: AMLODIPINE BESYLATE 5 MG TABLET PO SCH (10:13)
[2017-11-23] MEDS: LOSARTAN POTASSIUM 50 MG TABLET PO SCH (10:14)
[2017-11-23] MEDS: FINASTERIDE 5 MG TABLET PO SCH (10:14)
[2017-11-23] MEDS: BUSPIRONE HCL 10 MG TABLET PO SCH ×2 (10:15→22:03)
[2017-11-23] MEDS: DIVALPROEX SODIUM 250 MG TABLET.DR PO SCH ×2 (10:15→17:50)
[2017-11-23] MEDS: HYDROCHLOROTHIAZIDE 25 MG TABLET PO SCH (10:15)
[2017-11-23] MEDS: MEMANTINE HCL 10 MG TABLET PO SCH ×2 (10:15→22:05)
[2017-11-23] MEDS: POTASSIUM CHLORIDE 10 MEQ TABLET.SA PO SCH (10:15)
[2017-11-23] MEDS: TAMSULOSIN HCL 0.4 MG CAP.SR.24H PO SCH (10:15)
[2017-11-23] MEDS: SIMVASTATIN 10 MG TABLET PO SCH (10:15)
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
[2017-11-24] MEDS: HEPARIN SOD (PORCINE) 5,000 UNIT/ML 1 ML SYRINGE SUBCUT SCH ×3 (06:12→21:03)
[2017-11-24] MEDS: AMLODIPINE BESYLATE 5 MG TABLET PO SCH (10:32)
[2017-11-24] MEDS: LOSARTAN POTASSIUM 50 MG TABLET PO SCH (10:32)
[2017-11-24] MEDS: DIVALPROEX SODIUM 250 MG TABLET.DR PO SCH ×2 (10:33→20:19)
[2017-11-24] MEDS: ASPIRIN 325 MG TABLET, ENT COATED PO SCH (10:33)
[2017-11-24] MEDS: HYDROCHLOROTHIAZIDE 25 MG TABLET PO SCH (10:33)
[2017-11-24] MEDS: MEMANTINE HCL 10 MG TABLET PO SCH ×2 (10:33→21:02)
[2017-11-24] MEDS: FINASTERIDE 5 MG TABLET PO SCH (10:33)
[2017-11-24] MEDS: POTASSIUM CHLORIDE 10 MEQ TABLET.SA PO SCH (10:36)
[2017-11-24] MEDS: SIMVASTATIN 10 MG TABLET PO SCH (10:36)
[2017-11-24] MEDS: TAMSULOSIN HCL 0.4 MG CAP.SR.24H PO SCH (10:36)
[2017-11-24] MEDS: DOCUSATE SODIUM 100 MG CAPSULE PO SCH ×2 (10:36→20:19)
[2017-11-24] MEDS: BUSPIRONE HCL 10 MG TABLET PO SCH ×2 (10:36→21:02)
[2017-11-24] MEDS: CLONIDINE HCL 0.1 MG TABLET PO PRN (11:36)
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
[2017-11-24] MEDS: CETIRIZINE 10 MG TABLET PO SCH (21:02)
[2017-11-25] MEDS: HEPARIN SOD (PORCINE) 5,000 UNIT/ML 1 ML SYRINGE SUBCUT SCH ×3 (06:48→21:12)
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
[2017-11-25] MEDS: FINASTERIDE 5 MG TABLET PO SCH (12:05)
[2017-11-25] MEDS: AMLODIPINE BESYLATE 5 MG TABLET PO SCH (12:05)
[2017-11-25] MEDS: LOSARTAN POTASSIUM 50 MG TABLET PO SCH (12:06)
[2017-11-25] MEDS: BUSPIRONE HCL 10 MG TABLET PO SCH ×2 (12:06→21:12)
[2017-11-25] MEDS: HYDROCHLOROTHIAZIDE 25 MG TABLET PO SCH (12:07)
[2017-11-25] MEDS: POTASSIUM CHLORIDE 10 MEQ TABLET.SA PO SCH (12:07)
[2017-11-25] MEDS: TAMSULOSIN HCL 0.4 MG CAP.SR.24H PO SCH (12:07)
[2017-11-25] MEDS: SIMVASTATIN 10 MG TABLET PO SCH (12:08)
[2017-11-25] MEDS: ASPIRIN 325 MG TABLET, ENT COATED PO SCH (12:08)
[2017-11-25] MEDS: MEMANTINE HCL 10 MG TABLET PO SCH ×2 (12:08→21:12)
[2017-11-25] MEDS: DIVALPROEX SODIUM 250 MG TABLET.DR PO SCH ×2 (12:08→18:35)
[2017-11-25] MEDS: DOCUSATE SODIUM 100 MG CAPSULE PO SCH ×2 (12:08→18:35)
[2017-11-25] MEDS: CLONIDINE HCL 0.1 MG TABLET PO PRN (15:28)
[2017-11-25] MEDS: MELATONIN 3 MG TABLET PO SCH (18:35)
[2017-11-25] MEDS: CETIRIZINE 10 MG TABLET PO SCH (21:12)
[2017-11-26] MEDS: HEPARIN SOD (PORCINE) 5,000 UNIT/ML 1 ML SYRINGE SUBCUT SCH ×3 (05:17→21:34)
[2017-11-26] MEDS: MEMANTINE HCL 10 MG TABLET PO SCH ×2 (10:35→21:33)
[2017-11-26] MEDS: POTASSIUM CHLORIDE 10 MEQ TABLET.SA PO SCH (10:35)
[2017-11-26] MEDS: SIMVASTATIN 10 MG TABLET PO SCH (10:35)
[2017-11-26] MEDS: ASPIRIN 325 MG TABLET, ENT COATED PO SCH (10:35)
[2017-11-26] MEDS: LOSARTAN POTASSIUM 50 MG TABLET PO SCH (10:36)
[2017-11-26] MEDS: TAMSULOSIN HCL 0.4 MG CAP.SR.24H PO SCH (10:36)
[2017-11-26] MEDS: BUSPIRONE HCL 10 MG TABLET PO SCH ×2 (10:36→21:32)
[2017-11-26] MEDS: FINASTERIDE 5 MG TABLET PO SCH (10:36)
[2017-11-26] MEDS: DOCUSATE SODIUM 100 MG CAPSULE PO SCH ×2 (10:36→17:36)
[2017-11-26] MEDS: DIVALPROEX SODIUM 250 MG TABLET.DR PO SCH ×2 (10:36→17:37)
[2017-11-26] MEDS: HYDROCHLOROTHIAZIDE 25 MG TABLET PO SCH (10:37)
[2017-11-26] MEDS: AMLODIPINE BESYLATE 5 MG TABLET PO SCH (10:37)
[2017-11-26] MEDS: CLONIDINE HCL 0.1 MG TABLET PO PRN (11:18)
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
[2017-11-26] MEDS: MELATONIN 3 MG TABLET PO SCH (21:32)
[2017-11-26] MEDS: CETIRIZINE 10 MG TABLET PO SCH (21:32)
[2017-11-27 04:46] LABS: ABSOLUTE RETICS # 0.037 10^6/uL (0.028-0.122); HEMATOCRIT 35.5 % (37.9-51.0); HEMOGLOBIN 12.1 g/dL (13.5-17.0); MEAN CORPUSCULAR VOLUME 88 fl (80-97); PLATELET COUNT 226 10^3/uL (150-450); RED BLOOD COUNT 4.04 10^6/uL (4.35-5.55); RED CELL DISTRIBUTION WIDTH 12.9 % (11.5-14.0); RETICULOCYTE COUNT (AUTO) 0.91 % (0.66-2.85); WHITE BLOOD COUNT 6.4 10^3/uL (4.0-10.5)
[2017-11-27 05:06] LABS: ANION GAP 9 (5-19); BLOOD UREA NITROGEN 51 mg/dL (7-20); CALCIUM 9.8 mg/dL (8.4-10.2); CARBON DIOXIDE 29 mmol/L (22-30); CHLORIDE 100 mmol/L (98-107); GLUCOSE 98 mg/dL (75-110); IRON(TIBC) 101.9 ug/dL (49-181); POTASSIUM 4.1 mmol/L (3.6-5.0); SODIUM 138.3 mmol/L (137-145)
[2017-11-27] MEDS: HEPARIN SOD (PORCINE) 5,000 UNIT/ML 1 ML SYRINGE SUBCUT SCH ×3 (05:07→21:20)
[2017-11-27] MEDS ORDERED: NORMAL SALINE 1000 ML 1,000 ML IV ONE (08:20)
[2017-11-27] MEDS: DIVALPROEX SODIUM 250 MG TABLET.DR PO SCH ×2 (09:41→18:02)
[2017-11-27] MEDS: FINASTERIDE 5 MG TABLET PO SCH (09:41)
[2017-11-27] MEDS: DOCUSATE SODIUM 100 MG CAPSULE PO SCH ×2 (09:41→18:02)
[2017-11-27] MEDS: ASPIRIN 325 MG TABLET, ENT COATED PO SCH (09:41)
[2017-11-27] MEDS: LOSARTAN POTASSIUM 50 MG TABLET PO SCH (09:42)
[2017-11-27] MEDS: POTASSIUM CHLORIDE 10 MEQ TABLET.SA PO SCH (09:42)
[2017-11-27] MEDS: AMLODIPINE BESYLATE 5 MG TABLET PO SCH (09:42)
[2017-11-27] MEDS: SIMVASTATIN 10 MG TABLET PO SCH (09:43)
[2017-11-27] MEDS: BUSPIRONE HCL 10 MG TABLET PO SCH ×2 (09:43→21:06)
[2017-11-27] MEDS: MEMANTINE HCL 10 MG TABLET PO SCH ×2 (09:43→21:06)
[2017-11-27] MEDS: TAMSULOSIN HCL 0.4 MG CAP.SR.24H PO SCH (09:43)
[2017-11-27] MEDS: CLONIDINE HCL 0.1 MG TABLET PO PRN (11:39)
--- NOTE | 2017-11-27 14:21 | PSYCHOLOGICAL NOTE ---
Psych Note - Psych Note Psych Note: Reason for consult: Medication recommendations Eval : Chart review at 1:00 pm Final Disposition 2:17 pm Patient is a 77-year-old male. Medication recommendations made by contracted [facility] psychiatric provider Dr. Benigno MD includes 1. Continue Depakote 250 mg twice a day 2. Continue BuSpar 10 mg twice a day 3. Continue clonidine 0.01 every 12 hours for agitation 4. Begin Risperdone 0.25 mg at 8 in the morning and at 3 PM Impression/plan: Patient is psychiatrically cleared from mental health. Patient was previously evaluated by mental health and given recommendations for psychiatric meds. Patient also received an assessment for a capacity exam by mental health. This note is to document the medication recommendations made by the contracted psychiatric provider.If additional recommendations are needed please re-consult. Consulted with Dr. Delarosa regarding the management and care of patient.
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
[2017-11-27] MEDS ORDERED: RISPERIDONE 0.25 MG TABLET PO ONE (15:30)
[2017-11-27] MEDS: MELATONIN 3 MG TABLET PO SCH (18:02)
[2017-11-27] MEDS: CETIRIZINE 10 MG TABLET PO SCH (21:06)
[2017-11-28] MEDS: HEPARIN SOD (PORCINE) 5,000 UNIT/ML 1 ML SYRINGE SUBCUT SCH ×3 (05:10→21:22)
[2017-11-28 06:48] LABS: ANION GAP 12 (5-19); BLOOD UREA NITROGEN 40 mg/dL (7-20); CALCIUM 9.6 mg/dL (8.4-10.2); CARBON DIOXIDE 27 mmol/L (22-30); CHLORIDE 101 mmol/L (98-107); GLUCOSE 131 mg/dL (75-110); SODIUM 139.7 mmol/L (137-145)
[2017-11-28] MEDS: POTASSIUM CHLORIDE 10 MEQ TABLET.SA PO SCH (09:17)
[2017-11-28] MEDS: RISPERIDONE 0.25 MG TABLET PO SCH (09:18)
[2017-11-28] MEDS: LOSARTAN POTASSIUM 50 MG TABLET PO SCH (09:19)
[2017-11-28] MEDS: SIMVASTATIN 10 MG TABLET PO SCH (09:20)
[2017-11-28] MEDS: FINASTERIDE 5 MG TABLET PO SCH (09:21)
[2017-11-28] MEDS: TAMSULOSIN HCL 0.4 MG CAP.SR.24H PO SCH (09:21)
[2017-11-28] MEDS: DOCUSATE SODIUM 100 MG CAPSULE PO SCH ×2 (09:21→17:02)
[2017-11-28] MEDS: ASPIRIN 325 MG TABLET, ENT COATED PO SCH (09:21)
[2017-11-28] MEDS: AMLODIPINE BESYLATE 5 MG TABLET PO SCH (09:22)
[2017-11-28] MEDS: MEMANTINE HCL 10 MG TABLET PO SCH ×2 (09:22→21:22)
[2017-11-28] MEDS: BUSPIRONE HCL 10 MG TABLET PO SCH ×2 (09:22→21:22)
[2017-11-28] MEDS: DIVALPROEX SODIUM 250 MG TABLET.DR PO SCH ×2 (09:25→17:02)
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
[2017-11-28] MEDS: MELATONIN 3 MG TABLET PO SCH (18:52)
[2017-11-28] MEDS: CETIRIZINE 10 MG TABLET PO SCH (21:22)
[2017-11-29] MEDS: HEPARIN SOD (PORCINE) 5,000 UNIT/ML 1 ML SYRINGE SUBCUT SCH ×3 (06:08→21:37)
[2017-11-29] MEDS: RISPERIDONE 0.25 MG TABLET PO SCH (10:29)
[2017-11-29] MEDS: MEMANTINE HCL 10 MG TABLET PO SCH ×2 (10:30→21:36)
[2017-11-29] MEDS: BUSPIRONE HCL 10 MG TABLET PO SCH ×2 (10:30→21:35)
[2017-11-29] MEDS: SIMVASTATIN 10 MG TABLET PO SCH (10:30)
[2017-11-29] MEDS: DOCUSATE SODIUM 100 MG CAPSULE PO SCH ×2 (10:30→18:19)
[2017-11-29] MEDS: TAMSULOSIN HCL 0.4 MG CAP.SR.24H PO SCH (10:30)
[2017-11-29] MEDS: POTASSIUM CHLORIDE 10 MEQ TABLET.SA PO SCH (10:30)
[2017-11-29] MEDS: AMLODIPINE BESYLATE 5 MG TABLET PO SCH (10:31)
[2017-11-29] MEDS: DIVALPROEX SODIUM 250 MG TABLET.DR PO SCH ×2 (10:31→18:19)
[2017-11-29] MEDS: ASPIRIN 325 MG TABLET, ENT COATED PO SCH (10:31)
[2017-11-29] MEDS: LOSARTAN POTASSIUM 50 MG TABLET PO SCH (10:31)
[2017-11-29] MEDS: FINASTERIDE 5 MG TABLET PO SCH (10:31)
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
[2017-11-29] MEDS: MELATONIN 3 MG TABLET PO SCH (18:19)
[2017-11-29] MEDS: CETIRIZINE 10 MG TABLET PO SCH (21:36)
[2017-11-30] MEDS: HEPARIN SOD (PORCINE) 5,000 UNIT/ML 1 ML SYRINGE SUBCUT SCH ×3 (05:38→22:01)
[2017-11-30 05:59] LABS: HEMATOCRIT 34.1 % (37.9-51.0); HEMOGLOBIN 11.8 g/dL (13.5-17.0); MEAN CORPUSCULAR HEMOGLOBIN 30.4 pg (27.0-33.4); MEAN CORPUSCULAR HGB CONC 34.5 g/dL (32.0-36.0); MEAN CORPUSCULAR VOLUME 88 fl (80-97); PLATELET COUNT 223 10^3/uL (150-450); RED BLOOD COUNT 3.87 10^6/uL (4.35-5.55); WHITE BLOOD COUNT 6.8 10^3/uL (4.0-10.5)
[2017-11-30 06:19] LABS: ANION GAP 9 (5-19); BLOOD UREA NITROGEN 31 mg/dL (7-20); CALCIUM 9.5 mg/dL (8.4-10.2); CARBON DIOXIDE 29 mmol/L (22-30); CHLORIDE 106 mmol/L (98-107); GLUCOSE 103 mg/dL (75-110); PHOSPHORUS 3.2 mg/dL (2.5-4.5); POTASSIUM 4.3 mmol/L (3.6-5.0); SODIUM 143.5 mmol/L (137-145)
[2017-11-30] MEDS: POTASSIUM CHLORIDE 10 MEQ TABLET.SA PO SCH (09:03)
[2017-11-30] MEDS: FINASTERIDE 5 MG TABLET PO SCH (09:04)
[2017-11-30] MEDS: RISPERIDONE 0.25 MG TABLET PO SCH (09:04)
[2017-11-30] MEDS: MEMANTINE HCL 10 MG TABLET PO SCH ×2 (09:04→22:00)
[2017-11-30] MEDS: AMLODIPINE BESYLATE 5 MG TABLET PO SCH (09:05)
[2017-11-30] MEDS: BUSPIRONE HCL 10 MG TABLET PO SCH ×2 (09:06→22:01)
[2017-11-30] MEDS: ASPIRIN 325 MG TABLET, ENT COATED PO SCH (09:06)
[2017-11-30] MEDS: TAMSULOSIN HCL 0.4 MG CAP.SR.24H PO SCH (09:06)
[2017-11-30] MEDS: DIVALPROEX SODIUM 250 MG TABLET.DR PO SCH ×2 (09:06→17:04)
[2017-11-30] MEDS: SIMVASTATIN 10 MG TABLET PO SCH (09:07)
[2017-11-30] MEDS: LOSARTAN POTASSIUM 50 MG TABLET PO SCH (09:07)
[2017-11-30] MEDS: DOCUSATE SODIUM 100 MG CAPSULE PO SCH ×2 (09:09→17:04)
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
[2017-11-30] MEDS: MELATONIN 3 MG TABLET PO SCH (18:22)
[2017-11-30] MEDS: NYSTATIN TOPICAL POWDER 15 GM TP SCH (22:00)
[2017-11-30] MEDS: CETIRIZINE 10 MG TABLET PO SCH (22:01)
[2017-12-01] MEDS: HEPARIN SOD (PORCINE) 5,000 UNIT/ML 1 ML SYRINGE SUBCUT SCH ×3 (06:22→22:51)
[2017-12-01] MEDS: RISPERIDONE 0.25 MG TABLET PO SCH (09:55)
[2017-12-01] MEDS: MEMANTINE HCL 10 MG TABLET PO SCH ×2 (09:56→22:51)
[2017-12-01] MEDS: NYSTATIN TOPICAL POWDER 15 GM TP SCH ×3 (09:56→22:52)
[2017-12-01] MEDS: POTASSIUM CHLORIDE 10 MEQ TABLET.SA PO SCH (09:56)
[2017-12-01] MEDS: ASPIRIN 325 MG TABLET, ENT COATED PO SCH (09:57)
[2017-12-01] MEDS: DIVALPROEX SODIUM 250 MG TABLET.DR PO SCH ×2 (09:57→18:13)
[2017-12-01] MEDS: SIMVASTATIN 10 MG TABLET PO SCH (09:57)
[2017-12-01] MEDS: FINASTERIDE 5 MG TABLET PO SCH (09:57)
[2017-12-01] MEDS: BUSPIRONE HCL 10 MG TABLET PO SCH ×2 (09:58→22:51)
[2017-12-01] MEDS: TAMSULOSIN HCL 0.4 MG CAP.SR.24H PO SCH (09:58)
[2017-12-01] MEDS: DOCUSATE SODIUM 100 MG CAPSULE PO SCH ×2 (09:58→18:13)
[2017-12-01] MEDS: AMLODIPINE BESYLATE 5 MG TABLET PO SCH (09:59)
[2017-12-01] MEDS: LOSARTAN POTASSIUM 50 MG TABLET PO SCH (09:59)
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
[2017-12-01] MEDS: MELATONIN 3 MG TABLET PO SCH (18:13)
[2017-12-01] MEDS: CETIRIZINE 10 MG TABLET PO SCH (22:51)
[2017-12-02] MEDS: HEPARIN SOD (PORCINE) 5,000 UNIT/ML 1 ML SYRINGE SUBCUT SCH ×3 (05:38→22:38)
[2017-12-02] MEDS: ASPIRIN 325 MG TABLET, ENT COATED PO SCH (10:09)
[2017-12-02] MEDS: AMLODIPINE BESYLATE 5 MG TABLET PO SCH (10:09)
[2017-12-02] MEDS: BUSPIRONE HCL 10 MG TABLET PO SCH ×2 (10:09→22:39)
[2017-12-02] MEDS: DIVALPROEX SODIUM 250 MG TABLET.DR PO SCH ×2 (10:09→17:09)
[2017-12-02] MEDS: MEMANTINE HCL 10 MG TABLET PO SCH ×2 (10:10→22:38)
[2017-12-02] MEDS: POTASSIUM CHLORIDE 10 MEQ TABLET.SA PO SCH (10:10)
[2017-12-02] MEDS: DOCUSATE SODIUM 100 MG CAPSULE PO SCH ×2 (10:10→17:09)
[2017-12-02] MEDS: LOSARTAN POTASSIUM 50 MG TABLET PO SCH (10:10)
[2017-12-02] MEDS: NYSTATIN TOPICAL POWDER 15 GM TP SCH ×3 (10:10→22:38)
[2017-12-02] MEDS: FINASTERIDE 5 MG TABLET PO SCH (10:10)
[2017-12-02] MEDS: TAMSULOSIN HCL 0.4 MG CAP.SR.24H PO SCH (10:12)
[2017-12-02] MEDS: SIMVASTATIN 10 MG TABLET PO SCH (10:12)
[2017-12-02] MEDS: RISPERIDONE 0.25 MG TABLET PO SCH (10:12)
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
[2017-12-02] MEDS: MELATONIN 3 MG TABLET PO SCH (18:18)
[2017-12-02] MEDS: CETIRIZINE 10 MG TABLET PO SCH (22:39)
[2017-12-03] MEDS: HEPARIN SOD (PORCINE) 5,000 UNIT/ML 1 ML SYRINGE SUBCUT SCH ×3 (04:45→20:04)
[2017-12-03] MEDS: ASPIRIN 325 MG TABLET, ENT COATED PO SCH (10:03)
[2017-12-03] MEDS: AMLODIPINE BESYLATE 5 MG TABLET PO SCH (10:03)
[2017-12-03] MEDS: DIVALPROEX SODIUM 250 MG TABLET.DR PO SCH ×2 (10:04→18:13)
[2017-12-03] MEDS: POTASSIUM CHLORIDE 10 MEQ TABLET.SA PO SCH (10:04)
[2017-12-03] MEDS: BUSPIRONE HCL 10 MG TABLET PO SCH ×2 (10:04→20:00)
[2017-12-03] MEDS: FINASTERIDE 5 MG TABLET PO SCH (10:04)
[2017-12-03] MEDS: LOSARTAN POTASSIUM 50 MG TABLET PO SCH (10:04)
[2017-12-03] MEDS: MEMANTINE HCL 10 MG TABLET PO SCH ×2 (10:04→20:01)
[2017-12-03] MEDS: RISPERIDONE 0.25 MG TABLET PO SCH (10:06)
[2017-12-03] MEDS: SIMVASTATIN 10 MG TABLET PO SCH (10:06)
[2017-12-03] MEDS: TAMSULOSIN HCL 0.4 MG CAP.SR.24H PO SCH (10:06)
[2017-12-03] MEDS: NYSTATIN TOPICAL POWDER 15 GM TP SCH ×3 (10:07→20:03)
[2017-12-03] MEDS: DOCUSATE SODIUM 100 MG CAPSULE PO SCH ×2 (10:07→18:13)
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
[2017-12-03] MEDS: MELATONIN 3 MG TABLET PO SCH (18:13)
[2017-12-03] MEDS: CETIRIZINE 10 MG TABLET PO SCH (20:01)
[2017-12-04] MEDS: HEPARIN SOD (PORCINE) 5,000 UNIT/ML 1 ML SYRINGE SUBCUT SCH ×3 (05:06→21:03)
[2017-12-04] MEDS: ASPIRIN 325 MG TABLET, ENT COATED PO SCH (09:36)
[2017-12-04] MEDS: NYSTATIN TOPICAL POWDER 15 GM TP SCH ×2 (09:36→21:02)
[2017-12-04] MEDS: POTASSIUM CHLORIDE 10 MEQ TABLET.SA PO SCH (09:36)
[2017-12-04] MEDS: TAMSULOSIN HCL 0.4 MG CAP.SR.24H PO SCH (09:36)
[2017-12-04] MEDS: SIMVASTATIN 10 MG TABLET PO SCH (09:36)
[2017-12-04] MEDS: DOCUSATE SODIUM 100 MG CAPSULE PO SCH ×2 (09:36→17:21)
[2017-12-04] MEDS: BUSPIRONE HCL 10 MG TABLET PO SCH ×2 (09:36→21:02)
[2017-12-04] MEDS: AMLODIPINE BESYLATE 5 MG TABLET PO SCH (09:36)
[2017-12-04] MEDS: RISPERIDONE 0.25 MG TABLET PO SCH (09:36)
[2017-12-04] MEDS: LOSARTAN POTASSIUM 50 MG TABLET PO SCH (09:36)
[2017-12-04] MEDS: FINASTERIDE 5 MG TABLET PO SCH (09:36)
[2017-12-04] MEDS: DIVALPROEX SODIUM 250 MG TABLET.DR PO SCH ×2 (09:36→17:22)
[2017-12-04] MEDS: MEMANTINE HCL 10 MG TABLET PO SCH ×2 (09:36→21:02)
[2017-12-04] MEDS: MELATONIN 3 MG TABLET PO SCH (21:02)
[2017-12-04] MEDS: CETIRIZINE 10 MG TABLET PO SCH (21:02)
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
[2017-12-05] MEDS: HEPARIN SOD (PORCINE) 5,000 UNIT/ML 1 ML SYRINGE SUBCUT SCH ×3 (06:02→21:33)
[2017-12-05] MEDS: AMLODIPINE BESYLATE 5 MG TABLET PO SCH (11:03)
[2017-12-05] MEDS: DIVALPROEX SODIUM 250 MG TABLET.DR PO SCH ×2 (11:04→17:34)
[2017-12-05] MEDS: FINASTERIDE 5 MG TABLET PO SCH (11:04)
[2017-12-05] MEDS: TAMSULOSIN HCL 0.4 MG CAP.SR.24H PO SCH (11:05)
[2017-12-05] MEDS: DOCUSATE SODIUM 100 MG CAPSULE PO SCH ×2 (11:05→17:33)
[2017-12-05] MEDS: POTASSIUM CHLORIDE 10 MEQ TABLET.SA PO SCH (11:05)
[2017-12-05] MEDS: BUSPIRONE HCL 10 MG TABLET PO SCH ×2 (11:05→21:36)
[2017-12-05] MEDS: RISPERIDONE 0.25 MG TABLET PO SCH (11:06)
[2017-12-05] MEDS: SIMVASTATIN 10 MG TABLET PO SCH (11:06)
[2017-12-05] MEDS: ASPIRIN 325 MG TABLET, ENT COATED PO SCH (11:06)
[2017-12-05] MEDS: MEMANTINE HCL 10 MG TABLET PO SCH ×2 (11:06→21:36)
[2017-12-05] MEDS: NYSTATIN TOPICAL POWDER 15 GM TP SCH ×2 (11:07→21:36)
[2017-12-05] MEDS: LOSARTAN POTASSIUM 50 MG TABLET PO SCH (11:07)
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
[2017-12-05] MEDS: CETIRIZINE 10 MG TABLET PO SCH (21:36)
[2017-12-05] MEDS: MELATONIN 3 MG TABLET PO SCH (21:36)
[2017-12-06] MEDS: HEPARIN SOD (PORCINE) 5,000 UNIT/ML 1 ML SYRINGE SUBCUT SCH ×3 (05:04→21:54)
[2017-12-06] MEDS: POTASSIUM CHLORIDE 10 MEQ TABLET.SA PO SCH (10:08)
[2017-12-06] MEDS: DOCUSATE SODIUM 100 MG CAPSULE PO SCH ×2 (10:08→17:11)
[2017-12-06] MEDS: TAMSULOSIN HCL 0.4 MG CAP.SR.24H PO SCH (10:09)
[2017-12-06] MEDS: DIVALPROEX SODIUM 250 MG TABLET.DR PO SCH ×2 (10:09→17:11)
[2017-12-06] MEDS: MEMANTINE HCL 10 MG TABLET PO SCH ×2 (10:09→21:53)
[2017-12-06] MEDS: FINASTERIDE 5 MG TABLET PO SCH (10:09)
[2017-12-06] MEDS: AMLODIPINE BESYLATE 5 MG TABLET PO SCH (10:09)
[2017-12-06] MEDS: RISPERIDONE 0.25 MG TABLET PO SCH (10:10)
[2017-12-06] MEDS: SIMVASTATIN 10 MG TABLET PO SCH (10:10)
[2017-12-06] MEDS: ASPIRIN 325 MG TABLET, ENT COATED PO SCH (10:10)
[2017-12-06] MEDS: BUSPIRONE HCL 10 MG TABLET PO SCH ×2 (10:10→21:52)
[2017-12-06] MEDS: LOSARTAN POTASSIUM 50 MG TABLET PO SCH (10:10)
[2017-12-06] MEDS: NYSTATIN TOPICAL POWDER 15 GM TP SCH ×2 (10:13→21:54)
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
[2017-12-06] MEDS: CETIRIZINE 10 MG TABLET PO SCH (21:53)
[2017-12-06] MEDS: MELATONIN 3 MG TABLET PO SCH (21:55)
[2017-12-07] MEDS: HEPARIN SOD (PORCINE) 5,000 UNIT/ML 1 ML SYRINGE SUBCUT SCH ×2 (05:44→18:21)
[2017-12-07] MEDS: AMLODIPINE BESYLATE 5 MG TABLET PO SCH (09:59)
[2017-12-07] MEDS: LOSARTAN POTASSIUM 50 MG TABLET PO SCH (09:59)
[2017-12-07] MEDS: BUSPIRONE HCL 10 MG TABLET PO SCH ×2 (10:01→22:58)
[2017-12-07] MEDS: DOCUSATE SODIUM 100 MG CAPSULE PO SCH ×2 (10:01→18:30)
[2017-12-07] MEDS: MEMANTINE HCL 10 MG TABLET PO SCH ×2 (10:01→22:58)
[2017-12-07] MEDS: POTASSIUM CHLORIDE 10 MEQ TABLET.SA PO SCH (10:02)
[2017-12-07] MEDS: FINASTERIDE 5 MG TABLET PO SCH (10:02)
[2017-12-07] MEDS: TAMSULOSIN HCL 0.4 MG CAP.SR.24H PO SCH (10:02)
[2017-12-07] MEDS: ASPIRIN 325 MG TABLET, ENT COATED PO SCH (10:02)
[2017-12-07] MEDS: SIMVASTATIN 10 MG TABLET PO SCH (10:02)
[2017-12-07] MEDS: DIVALPROEX SODIUM 250 MG TABLET.DR PO SCH ×2 (10:03→18:30)
[2017-12-07] MEDS: RISPERIDONE 0.25 MG TABLET PO SCH (10:07)
[2017-12-07] MEDS: NYSTATIN TOPICAL POWDER 15 GM TP SCH (10:11)
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
[2017-12-07] MEDS: MELATONIN 3 MG TABLET PO SCH (18:31)
[2017-12-07] MEDS: CETIRIZINE 10 MG TABLET PO SCH (22:59)
[2017-12-08] MEDS: RISPERIDONE 0.25 MG TABLET PO SCH (11:01)
[2017-12-08] MEDS: FINASTERIDE 5 MG TABLET PO SCH (11:01)
[2017-12-08] MEDS: DOCUSATE SODIUM 100 MG CAPSULE PO SCH ×2 (11:02→18:40)
[2017-12-08] MEDS: AMLODIPINE BESYLATE 5 MG TABLET PO SCH (11:02)
[2017-12-08] MEDS: BUSPIRONE HCL 10 MG TABLET PO SCH ×2 (11:02→21:17)
[2017-12-08] MEDS: ASPIRIN 325 MG TABLET, ENT COATED PO SCH (11:03)
[2017-12-08] MEDS: TAMSULOSIN HCL 0.4 MG CAP.SR.24H PO SCH (11:03)
[2017-12-08] MEDS: DIVALPROEX SODIUM 250 MG TABLET.DR PO SCH ×2 (11:03→18:40)
[2017-12-08] MEDS: SIMVASTATIN 10 MG TABLET PO SCH (11:03)
[2017-12-08] MEDS: POTASSIUM CHLORIDE 10 MEQ TABLET.SA PO SCH (11:04)
[2017-12-08] MEDS: MEMANTINE HCL 10 MG TABLET PO SCH ×2 (11:04→21:17)
[2017-12-08] MEDS: LOSARTAN POTASSIUM 50 MG TABLET PO SCH (11:05)
[2017-12-08] MEDS ORDERED: MAGNESIUM CITRATE 296 ML BOTTLE PO ONE ×2 (12:00→18:45)
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
[2017-12-08] MEDS: MELATONIN 3 MG TABLET PO SCH (18:39)
[2017-12-08] MEDS: CETIRIZINE 10 MG TABLET PO SCH (21:17)
[2017-12-09] MEDS: AMLODIPINE BESYLATE 5 MG TABLET PO SCH (10:40)
[2017-12-09] MEDS: ASPIRIN 325 MG TABLET, ENT COATED PO SCH (10:40)
[2017-12-09] MEDS: BUSPIRONE HCL 10 MG TABLET PO SCH (10:40)
[2017-12-09] MEDS: DIVALPROEX SODIUM 250 MG TABLET.DR PO SCH ×2 (10:40→18:56)
[2017-12-09] MEDS: RISPERIDONE 0.25 MG TABLET PO SCH (10:41)
[2017-12-09] MEDS: POTASSIUM CHLORIDE 10 MEQ TABLET.SA PO SCH (10:41)
[2017-12-09] MEDS: TAMSULOSIN HCL 0.4 MG CAP.SR.24H PO SCH (10:41)
[2017-12-09] MEDS: LOSARTAN POTASSIUM 50 MG TABLET PO SCH (10:41)
[2017-12-09] MEDS: DOCUSATE SODIUM 100 MG CAPSULE PO SCH ×2 (10:41→18:56)
[2017-12-09] MEDS: FINASTERIDE 5 MG TABLET PO SCH ×2 (10:41→18:56)
[2017-12-09] MEDS: SIMVASTATIN 10 MG TABLET PO SCH (10:42)
[2017-12-09] MEDS: MEMANTINE HCL 10 MG TABLET PO SCH (10:42)
[2017-12-09] MEDS ORDERED: MAGNESIUM CITRATE 296 ML BOTTLE PO ONE (11:03)
[2017-12-09] MEDS ORDERED: BISACODYL 10 MG SUPP.RECT PR PRN (11:03)
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
[2017-12-09] MEDS: MELATONIN 3 MG TABLET PO SCH (18:56)
[2017-12-09] MEDS: POTASSIUM CHLORIDE 20 MEQ/15 ML UDCUP PO SCH (20:56)
[2017-12-09] MEDS ORDERED: CETIRIZINE 10 MG TABLET PO PRN (22:00)
[2017-12-10] MEDS: RISPERIDONE 0.25 MG TABLET PO SCH (10:31)
[2017-12-10] MEDS: DIVALPROEX SODIUM 250 MG TABLET.DR PO SCH ×2 (10:31→17:58)
[2017-12-10] MEDS: AMLODIPINE BESYLATE 5 MG TABLET PO SCH (10:31)
[2017-12-10] MEDS: POTASSIUM CHLORIDE 20 MEQ/15 ML UDCUP PO SCH ×2 (10:31→21:29)
[2017-12-10] MEDS: LOSARTAN POTASSIUM 50 MG TABLET PO SCH (10:31)
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
[2017-12-10] MEDS: TAMSULOSIN HCL 0.4 MG CAP.SR.24H PO SCH (17:58)
[2017-12-10] MEDS: MELATONIN 3 MG TABLET PO SCH (17:58)
[2017-12-10] MEDS: FINASTERIDE 5 MG TABLET PO SCH (17:58)
[2017-12-11] MEDS: DIVALPROEX SODIUM 250 MG TABLET.DR PO SCH ×2 (10:07→17:17)
[2017-12-11] MEDS: RISPERIDONE 0.25 MG TABLET PO SCH (10:07)
[2017-12-11] MEDS: POLYETHYLENE GLYCOL 3350 POWDER 17 GM/1 PACKET PO SCH (10:07)
[2017-12-11] MEDS: POTASSIUM CHLORIDE 20 MEQ/15 ML UDCUP PO SCH ×2 (10:07→21:44)
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
[2017-12-11] MEDS: AMLODIPINE BESYLATE 5 MG TABLET PO SCH (13:19)
[2017-12-11] MEDS: LOSARTAN POTASSIUM 50 MG TABLET PO SCH (13:19)
[2017-12-11] MEDS: TAMSULOSIN HCL 0.4 MG CAP.SR.24H PO SCH (17:17)
[2017-12-11] MEDS: FINASTERIDE 5 MG TABLET PO SCH (17:18)
[2017-12-11] MEDS: MELATONIN 3 MG TABLET PO SCH (18:29)
[2017-12-12] MEDS: POTASSIUM CHLORIDE 20 MEQ/15 ML UDCUP PO SCH ×2 (09:52→22:09)
[2017-12-12] MEDS: RISPERIDONE 0.25 MG TABLET PO SCH (09:52)
[2017-12-12] MEDS: POLYETHYLENE GLYCOL 3350 POWDER 17 GM/1 PACKET PO SCH (09:52)
[2017-12-12] MEDS: AMLODIPINE BESYLATE 5 MG TABLET PO SCH (09:52)
[2017-12-12] MEDS: DIVALPROEX SODIUM 250 MG TABLET.DR PO SCH ×2 (09:52→18:05)
[2017-12-12] MEDS ORDERED: LOSARTAN POTASSIUM 25 MG TABLET PO ONE (10:15)
[2017-12-12] MEDS ORDERED: HYDROCHLOROTHIAZIDE 25 MG TABLET PO ONE (10:15)
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
[2017-12-12] MEDS: FINASTERIDE 5 MG TABLET PO SCH (18:05)
[2017-12-12] MEDS: TAMSULOSIN HCL 0.4 MG CAP.SR.24H PO SCH (18:05)
[2017-12-12] MEDS: MELATONIN 3 MG TABLET PO SCH (18:06)
[2017-12-13] MEDS: DIVALPROEX SODIUM 250 MG TABLET.DR PO SCH ×2 (11:56→17:48)
[2017-12-13] MEDS: AMLODIPINE BESYLATE 5 MG TABLET PO SCH (11:57)
[2017-12-13] MEDS: POTASSIUM CHLORIDE 20 MEQ/15 ML UDCUP PO SCH ×2 (11:58→21:10)
[2017-12-13] MEDS: HYDROCHLOROTHIAZIDE 25 MG TABLET PO SCH ×3 (11:58)
[2017-12-13] MEDS: RISPERIDONE 0.25 MG TABLET PO SCH (11:59)
[2017-12-13] MEDS: LOSARTAN POTASSIUM 25 MG TABLET PO SCH (11:59)
[2017-12-13] MEDS: POLYETHYLENE GLYCOL 3350 POWDER 17 GM/1 PACKET PO SCH (11:59)
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
[2017-12-13] MEDS: MELATONIN 3 MG TABLET PO SCH (17:48)
[2017-12-13] MEDS: TAMSULOSIN HCL 0.4 MG CAP.SR.24H PO SCH (17:48)
[2017-12-13] MEDS: FINASTERIDE 5 MG TABLET PO SCH (17:48)
[2017-12-14] MEDS: HYDROCHLOROTHIAZIDE 25 MG TABLET PO SCH ×3 (09:51→09:52)
[2017-12-14] MEDS: POTASSIUM CHLORIDE 20 MEQ/15 ML UDCUP PO SCH ×2 (09:52→22:59)
[2017-12-14] MEDS: AMLODIPINE BESYLATE 5 MG TABLET PO SCH (09:52)
[2017-12-14] MEDS: DIVALPROEX SODIUM 250 MG TABLET.DR PO SCH ×2 (09:52→18:09)
[2017-12-14] MEDS: POLYETHYLENE GLYCOL 3350 POWDER 17 GM/1 PACKET PO SCH (09:53)
[2017-12-14] MEDS: RISPERIDONE 0.25 MG TABLET PO SCH (09:54)
[2017-12-14] MEDS: LOSARTAN POTASSIUM 25 MG TABLET PO SCH (09:54)
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
[2017-12-14] MEDS: FINASTERIDE 5 MG TABLET PO SCH (18:08)
[2017-12-14] MEDS: MELATONIN 3 MG TABLET PO SCH (18:08)
[2017-12-14] MEDS: TAMSULOSIN HCL 0.4 MG CAP.SR.24H PO SCH (18:08)
[2017-12-15] MEDS: AMLODIPINE BESYLATE 5 MG TABLET PO SCH (10:12)
[2017-12-15] MEDS: DIVALPROEX SODIUM 250 MG TABLET.DR PO SCH ×2 (10:14→17:30)
[2017-12-15] MEDS: HYDROCHLOROTHIAZIDE 25 MG TABLET PO SCH ×3 (10:15→10:29)
[2017-12-15] MEDS: RISPERIDONE 0.25 MG TABLET PO SCH (10:17)
[2017-12-15] MEDS: LOSARTAN POTASSIUM 25 MG TABLET PO SCH (10:17)
[2017-12-15] MEDS: POTASSIUM CHLORIDE 20 MEQ/15 ML UDCUP PO SCH ×2 (10:18→22:43)
[2017-12-15] MEDS: POLYETHYLENE GLYCOL 3350 POWDER 17 GM/1 PACKET PO SCH (10:18)
[2017-12-15] MEDS: TAMSULOSIN HCL 0.4 MG CAP.SR.24H PO SCH (17:31)
[2017-12-15] MEDS: FINASTERIDE 5 MG TABLET PO SCH (17:31)
[2017-12-15] MEDS: MELATONIN 3 MG TABLET PO SCH (17:44)
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
--- NOTE | 2017-12-15 22:05 | RADIOLOGY REPORT (SQ) ---
EXAM DESCRIPTION: CT HEAD WITHOUT COMPLETED DATE/TIME: 12/15/2017 9:56 pm REASON FOR STUDY: head injury COMPARISON: 11/09/2017 TECHNIQUE: Axial images acquired through the brain without intravenous contrast. Images reviewed wi th bone, brain and subdural windows. Additional sagittal and coronal reconstructions were generated. Images stored on PACS. All CT scanners at this facility use dose modulation, iterative reconstruction, and/or weight based d osing when appropriate to reduce radiation dose to as low as reasonably achievable (ALARA). [facility]: Dose Right [facility]: CareDose [facility]: Dose Right [facility]: Teradose 4D [facility]: Smart [place] Power RADIATION DOSE: CT Rad equipment meets quality standard of care and radiation dose reduction techniq ues were employed. CTDIvol: 53.2 mGy. DLP: 1017 mGy-cm.mGy. LIMITATIONS: None. FINDINGS: VENTRICLES: Prominent. CEREBRUM: No masses. No hemorrhage. No midline shift. Areas of low density in the white matter mos t likely due to chronic micro-vascular ischemic change. No evidence for acute infarction. CEREBELLUM: No masses. No hemorrhage. No alteration of density. No evidence for acute infarction. EXTRAAXIAL SPACES: Age-related involutional change. No fluid collections. No masses. ORBITS AND GLOBE: No intra- or extraconal masses. Normal contour of globe without masses. CALVARIUM: No fracture. PARANASAL SINUSES: No fluid or mucosal thickening. SOFT TISSUES: No mass or hematoma. OTHER: No other significant finding. IMPRESSION: CHRONIC CHANGES OF ATROPHY AND MICROVASCULAR ISCHEMIA. NO ACUTE PROCESS. EVIDENCE OF ACUTE STROKE: NO. TECHNICAL DOCUMENTATION: JOB ID: [id number] Quality ID # [id number]: Final reports with documentation of one or more dose reduction techniques (e.g., Au tomated exposure control, adjustment of the mA and/or kV according to patient size, use of iterative reconstruction technique) 2010 [email or web address]- All Rights Reserved Reading location - IP/workstation name: [email or web address]
[2017-12-16] MEDS: HYDROCHLOROTHIAZIDE 25 MG TABLET PO SCH ×2 (10:58)
[2017-12-16] MEDS ORDERED: LOSARTAN POTASSIUM 25 MG TABLET PO ONE (11:00)
[2017-12-16] MEDS: AMLODIPINE BESYLATE 5 MG TABLET PO SCH (11:09)
[2017-12-16] MEDS: POTASSIUM CHLORIDE 20 MEQ/15 ML UDCUP PO SCH ×2 (11:09→21:11)
[2017-12-16] MEDS: RISPERIDONE 0.25 MG TABLET PO SCH (11:10)
[2017-12-16] MEDS: DIVALPROEX SODIUM 250 MG TABLET.DR PO SCH ×2 (11:10→17:47)
[2017-12-16] MEDS: LOSARTAN POTASSIUM 25 MG TABLET PO SCH (11:10)
[2017-12-16] MEDS: POLYETHYLENE GLYCOL 3350 POWDER 17 GM/1 PACKET PO SCH (11:10)
[2017-12-16] MEDS ORDERED: LOSARTAN POTASSIUM 50 MG TABLET PO SCH (11:30)
[2017-12-16] MEDS ORDERED: LOSARTAN POTASSIUM 50 MG TABLET PO ONE (11:30)
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
[2017-12-16] MEDS: FINASTERIDE 5 MG TABLET PO SCH (17:47)
[2017-12-16] MEDS: TAMSULOSIN HCL 0.4 MG CAP.SR.24H PO SCH (17:47)
[2017-12-16] MEDS: MELATONIN 3 MG TABLET PO SCH (20:27)
[2017-12-17] MEDS: DIVALPROEX SODIUM 250 MG TABLET.DR PO SCH ×2 (09:07→17:48)
[2017-12-17] MEDS: LOSARTAN POTASSIUM 50 MG TABLET PO SCH (09:07)
[2017-12-17] MEDS: POTASSIUM CHLORIDE 20 MEQ/15 ML UDCUP PO SCH ×2 (09:08→22:15)
[2017-12-17] MEDS: AMLODIPINE BESYLATE 5 MG TABLET PO SCH (09:08)
[2017-12-17] MEDS: POLYETHYLENE GLYCOL 3350 POWDER 17 GM/1 PACKET PO SCH (09:08)
[2017-12-17] MEDS: RISPERIDONE 0.25 MG TABLET PO SCH (09:08)
[2017-12-17] MEDS: HYDROCHLOROTHIAZIDE 25 MG TABLET PO SCH (09:08)
[2017-12-17] MEDS ORDERED: LOSARTAN POTASSIUM 50 MG TABLET PO SCH (10:00)
--- NOTE | 2017-12-17 14:57 | RADIOLOGY REPORT (SQ) ---
EXAM DESCRIPTION: CHEST SINGLE VIEW COMPLETED DATE/TIME: 12/17/2017 2:50 pm REASON FOR STUDY: EVALUATE FOR RIB FXR S/P FALL COMPARISON: 11/09/2017 EXAM PARAMETERS: NUMBER OF VIEWS: One view. TECHNIQUE: Single frontal radiographic view of the chest acquired. RADIATION DOSE: NA LIMITATIONS: None. FINDINGS: LUNGS AND PLEURA: No opacities, masses or pneumothorax. No pleural effusion. MEDIASTINUM AND HILAR STRUCTURES: No masses. Contour normal. HEART AND VASCULAR STRUCTURES: Heart normal in size. Normal vasculature. BONES: No acute findings. HARDWARE: None in the chest. OTHER: No other significant finding. IMPRESSION: NO ACUTE RADIOGRAPHIC FINDING IN THE CHEST. TECHNICAL DOCUMENTATION: JOB ID: [id number] [email or web address]- All Rights Reserved Reading location - IP/workstation name: [email or web address]
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
[2017-12-17] MEDS: LIDOCAINE 5% (700 MG) TRANSDERMAL ADH..PATCH TP SCH (17:47)
[2017-12-17] MEDS: MELATONIN 3 MG TABLET PO SCH (17:48)
[2017-12-17] MEDS: FINASTERIDE 5 MG TABLET PO SCH (17:48)
[2017-12-17] MEDS: TAMSULOSIN HCL 0.4 MG CAP.SR.24H PO SCH (17:49)
[2017-12-17] MEDS: ACETAMINOPHEN 325 MG TABLET PO PRN (17:50)
[2017-12-18] MEDS: ACETAMINOPHEN 325 MG TABLET PO PRN (09:13)
[2017-12-18] MEDS: AMLODIPINE BESYLATE 5 MG TABLET PO SCH (09:14)
[2017-12-18] MEDS: HYDROCHLOROTHIAZIDE 25 MG TABLET PO SCH (09:14)
[2017-12-18] MEDS: POTASSIUM CHLORIDE 20 MEQ/15 ML UDCUP PO SCH ×2 (09:15→21:14)
[2017-12-18] MEDS: LOSARTAN POTASSIUM 50 MG TABLET PO SCH (09:15)
[2017-12-18] MEDS: DIVALPROEX SODIUM 250 MG TABLET.DR PO SCH ×2 (09:15→17:46)
[2017-12-18] MEDS: POLYETHYLENE GLYCOL 3350 POWDER 17 GM/1 PACKET PO SCH (09:15)
[2017-12-18] MEDS: RISPERIDONE 0.25 MG TABLET PO SCH (09:15)
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
[2017-12-18] MEDS: FINASTERIDE 5 MG TABLET PO SCH (17:45)
[2017-12-18] MEDS: MELATONIN 3 MG TABLET PO SCH (17:45)
[2017-12-18] MEDS: TAMSULOSIN HCL 0.4 MG CAP.SR.24H PO SCH (17:46)
[2017-12-18] MEDS: LIDOCAINE 5% (700 MG) TRANSDERMAL ADH..PATCH TP SCH (17:46)
[2017-12-19] MEDS: POLYETHYLENE GLYCOL 3350 POWDER 17 GM/1 PACKET PO SCH (09:36)
[2017-12-19] MEDS: LOSARTAN POTASSIUM 50 MG TABLET PO SCH (09:36)
[2017-12-19] MEDS: POTASSIUM CHLORIDE 20 MEQ/15 ML UDCUP PO SCH ×2 (09:36→22:50)
[2017-12-19] MEDS: DIVALPROEX SODIUM 250 MG TABLET.DR PO SCH ×2 (09:36→17:06)
[2017-12-19] MEDS: AMLODIPINE BESYLATE 5 MG TABLET PO SCH (09:36)
[2017-12-19] MEDS: RISPERIDONE 0.25 MG TABLET PO SCH (09:36)
[2017-12-19] MEDS: HYDROCHLOROTHIAZIDE 25 MG TABLET PO SCH (09:36)
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
[2017-12-19] MEDS: LIDOCAINE 5% (700 MG) TRANSDERMAL ADH..PATCH TP SCH (17:04)
[2017-12-19] MEDS: FINASTERIDE 5 MG TABLET PO SCH (17:06)
[2017-12-19] MEDS: TAMSULOSIN HCL 0.4 MG CAP.SR.24H PO SCH (17:06)
[2017-12-19] MEDS: MELATONIN 3 MG TABLET PO SCH (18:56)
[2017-12-20] MEDS: HYDROCHLOROTHIAZIDE 25 MG TABLET PO SCH (09:35)
[2017-12-20] MEDS: POTASSIUM CHLORIDE 20 MEQ/15 ML UDCUP PO SCH ×2 (09:35→20:37)
[2017-12-20] MEDS: POLYETHYLENE GLYCOL 3350 POWDER 17 GM/1 PACKET PO SCH (09:35)
[2017-12-20] MEDS: RISPERIDONE 0.25 MG TABLET PO SCH (09:35)
[2017-12-20] MEDS: LOSARTAN POTASSIUM 50 MG TABLET PO SCH (09:35)
[2017-12-20] MEDS: DIVALPROEX SODIUM 250 MG TABLET.DR PO SCH ×2 (09:35→17:31)
[2017-12-20] MEDS ORDERED: NEOMY/BACITRAC ZN/POLY OINT 15 GM TP ONE (11:00)
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
[2017-12-20] MEDS: FINASTERIDE 5 MG TABLET PO SCH (17:30)
[2017-12-20] MEDS: TAMSULOSIN HCL 0.4 MG CAP.SR.24H PO SCH (17:30)
[2017-12-20] MEDS: LIDOCAINE 5% (700 MG) TRANSDERMAL ADH..PATCH TP SCH (17:31)
[2017-12-20] MEDS: MELATONIN 3 MG TABLET PO SCH (18:26)
[2017-12-21] MEDS: HYDROCHLOROTHIAZIDE 25 MG TABLET PO SCH (09:44)
[2017-12-21] MEDS: POLYETHYLENE GLYCOL 3350 POWDER 17 GM/1 PACKET PO SCH (09:44)
[2017-12-21] MEDS: RISPERIDONE 0.25 MG TABLET PO SCH (09:44)
[2017-12-21] MEDS: POTASSIUM CHLORIDE 20 MEQ/15 ML UDCUP PO SCH ×2 (09:44→22:56)
[2017-12-21] MEDS: DIVALPROEX SODIUM 250 MG TABLET.DR PO SCH ×2 (09:44→17:51)
[2017-12-21] MEDS: LOSARTAN POTASSIUM 50 MG TABLET PO SCH (09:44)
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
[2017-12-21] MEDS: LIDOCAINE 5% (700 MG) TRANSDERMAL ADH..PATCH TP SCH (17:19)
[2017-12-21] MEDS: FINASTERIDE 5 MG TABLET PO SCH (17:51)
[2017-12-21] MEDS: TAMSULOSIN HCL 0.4 MG CAP.SR.24H PO SCH (17:51)
[2017-12-21] MEDS: MELATONIN 3 MG TABLET PO SCH (17:51)
[2017-12-22] MEDS: PHARMACY COMMUNICATION ORDER MC SCH (06:28)
[2017-12-22] MEDS: DIVALPROEX SODIUM 250 MG TABLET.DR PO SCH ×2 (09:31→18:22)
[2017-12-22] MEDS: HYDROCHLOROTHIAZIDE 25 MG TABLET PO SCH (09:31)
[2017-12-22] MEDS: RISPERIDONE 0.25 MG TABLET PO SCH (09:32)
[2017-12-22] MEDS: POLYETHYLENE GLYCOL 3350 POWDER 17 GM/1 PACKET PO SCH (09:32)
[2017-12-22] MEDS: LOSARTAN POTASSIUM 50 MG TABLET PO SCH (09:32)
[2017-12-22] MEDS: POTASSIUM CHLORIDE 20 MEQ/15 ML UDCUP PO SCH ×2 (09:35→20:58)
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
[2017-12-22] MEDS: LIDOCAINE 5% (700 MG) TRANSDERMAL ADH..PATCH TP SCH (18:22)
[2017-12-22] MEDS: MELATONIN 3 MG TABLET PO SCH (18:22)
[2017-12-22] MEDS: FINASTERIDE 5 MG TABLET PO SCH (18:22)
[2017-12-22] MEDS: TAMSULOSIN HCL 0.4 MG CAP.SR.24H PO SCH (18:22)
[2017-12-23] MEDS: PHARMACY COMMUNICATION ORDER MC SCH (06:00)
[2017-12-23] MEDS ORDERED: IBUPROFEN 600 MG TABLET PO PRN (08:39)
--- NOTE | 2017-12-23 09:37 | RADIOLOGY REPORT (SQ) ---
EXAM DESCRIPTION: RIBS RIGHT W/O PA CHEST COMPLETED DATE/TIME: 12/23/2017 9:27 am REASON FOR STUDY: fall 1 week ago; persistent right chest wall pain COMPARISON: Chest radiograph 12/17/2017, 11/09/2017 NUMBER OF VIEWS: Two views. TECHNIQUE: Images acquired of the right ribs in the area of focal concern. LIMITATIONS: None. FINDINGS: RIBS: No acute displaced fracture. No worrisome bone lesions. LUNGS: Pleural reaction along the right chest wall. New from October 2017. OTHER: No other significant finding. IMPRESSION: No acute rib fracture. Pleural reaction along the right chest wall. COMMENT: SITE OF TRAUMA/COMPLAINT MARKED/STAMP COMPLETED: No TECHNICAL DOCUMENTATION: JOB ID: [id number] [employer]- All Rights Reserved Reading location - IP/workstation name: [email or web address]
[2017-12-23] MEDS: POLYETHYLENE GLYCOL 3350 POWDER 17 GM/1 PACKET PO SCH (09:42)
[2017-12-23] MEDS: POTASSIUM CHLORIDE 20 MEQ/15 ML UDCUP PO SCH ×2 (09:42→21:20)
[2017-12-23] MEDS: RISPERIDONE 0.25 MG TABLET PO SCH (09:43)
[2017-12-23] MEDS: HYDROCHLOROTHIAZIDE 25 MG TABLET PO SCH (09:43)
[2017-12-23] MEDS: DIVALPROEX SODIUM 250 MG TABLET.DR PO SCH ×2 (09:43→18:04)
[2017-12-23] MEDS: LOSARTAN POTASSIUM 50 MG TABLET PO SCH (09:44)
[2017-12-23] MEDS ORDERED: HYDROCHLOROTHIAZIDE 25 MG TABLET PO SCH (12:23)
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
[2017-12-23] MEDS: LIDOCAINE 5% (700 MG) TRANSDERMAL ADH..PATCH TP SCH (18:04)
[2017-12-23] MEDS: FINASTERIDE 5 MG TABLET PO SCH (18:04)
[2017-12-23] MEDS: TAMSULOSIN HCL 0.4 MG CAP.SR.24H PO SCH (18:04)
[2017-12-23] MEDS: MELATONIN 3 MG TABLET PO SCH (18:04)
[2017-12-24] MEDS: PHARMACY COMMUNICATION ORDER MC SCH (05:46)
[2017-12-24] MEDS: HYDROCHLOROTHIAZIDE 12.5 MG CAPSULE PO SCH (10:02)
[2017-12-24] MEDS: LOSARTAN POTASSIUM 50 MG TABLET PO SCH (10:03)
[2017-12-24] MEDS: DIVALPROEX SODIUM 250 MG TABLET.DR PO SCH ×2 (10:06→17:20)
[2017-12-24] MEDS: POLYETHYLENE GLYCOL 3350 POWDER 17 GM/1 PACKET PO SCH (10:06)
[2017-12-24] MEDS: POTASSIUM CHLORIDE 20 MEQ/15 ML UDCUP PO SCH ×2 (10:06→21:06)
[2017-12-24] MEDS: RISPERIDONE 0.25 MG TABLET PO SCH (10:06)
[2017-12-24] MEDS: ACETAMINOPHEN 325 MG TABLET PO PRN (11:28)
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
[2017-12-24] MEDS: FINASTERIDE 5 MG TABLET PO SCH (17:20)
[2017-12-24] MEDS: LIDOCAINE 5% (700 MG) TRANSDERMAL ADH..PATCH TP SCH (17:20)
[2017-12-24] MEDS: TAMSULOSIN HCL 0.4 MG CAP.SR.24H PO SCH (17:20)
[2017-12-24] MEDS: MELATONIN 3 MG TABLET PO SCH (18:01)
[2017-12-25] MEDS: PHARMACY COMMUNICATION ORDER MC SCH (06:20)
[2017-12-25] MEDS: LOSARTAN POTASSIUM 50 MG TABLET PO SCH (08:57)
[2017-12-25] MEDS: HYDROCHLOROTHIAZIDE 12.5 MG CAPSULE PO SCH (08:57)
[2017-12-25] MEDS: POTASSIUM CHLORIDE 20 MEQ/15 ML UDCUP PO SCH ×2 (08:58→22:23)
[2017-12-25] MEDS: POLYETHYLENE GLYCOL 3350 POWDER 17 GM/1 PACKET PO SCH (08:58)
[2017-12-25] MEDS: DIVALPROEX SODIUM 250 MG TABLET.DR PO SCH ×2 (08:58→18:06)
[2017-12-25] MEDS: RISPERIDONE 0.25 MG TABLET PO SCH ×2 (08:59→22:23)
[2017-12-25] MEDS ORDERED: ACETAMINOPHEN 325 MG TABLET PO PRN (09:57)
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
[2017-12-25] MEDS: TAMSULOSIN HCL 0.4 MG CAP.SR.24H PO SCH (18:05)
[2017-12-25] MEDS: LIDOCAINE 5% (700 MG) TRANSDERMAL ADH..PATCH TP SCH (18:06)
[2017-12-25] MEDS: FINASTERIDE 5 MG TABLET PO SCH (18:06)
[2017-12-25] MEDS: MELATONIN 3 MG TABLET PO SCH (18:39)
[2017-12-26] MEDS: PHARMACY COMMUNICATION ORDER MC SCH (05:24)
[2017-12-26] MEDS: POLYETHYLENE GLYCOL 3350 POWDER 17 GM/1 PACKET PO SCH (11:25)
[2017-12-26] MEDS: HYDROCHLOROTHIAZIDE 12.5 MG CAPSULE PO SCH (11:25)
[2017-12-26] MEDS: POTASSIUM CHLORIDE 20 MEQ/15 ML UDCUP PO SCH ×2 (11:25→21:47)
[2017-12-26] MEDS: DIVALPROEX SODIUM 250 MG TABLET.DR PO SCH ×2 (11:26→18:58)
[2017-12-26] MEDS: LOSARTAN POTASSIUM 50 MG TABLET PO SCH (11:26)
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
[2017-12-26] MEDS: FINASTERIDE 5 MG TABLET PO SCH (18:58)
[2017-12-26] MEDS: LIDOCAINE 5% (700 MG) TRANSDERMAL ADH..PATCH TP SCH (18:58)
[2017-12-26] MEDS: TAMSULOSIN HCL 0.4 MG CAP.SR.24H PO SCH (18:58)
[2017-12-26] MEDS: MELATONIN 3 MG TABLET PO SCH (18:58)
[2017-12-26] MEDS: RISPERIDONE 0.25 MG TABLET PO SCH (21:46)
[2017-12-27] MEDS: PHARMACY COMMUNICATION ORDER MC SCH (06:02)
[2017-12-27] MEDS: POTASSIUM CHLORIDE 20 MEQ/15 ML UDCUP PO SCH ×2 (09:07→21:39)
[2017-12-27] MEDS: POLYETHYLENE GLYCOL 3350 POWDER 17 GM/1 PACKET PO SCH (09:07)
[2017-12-27] MEDS: DIVALPROEX SODIUM 250 MG TABLET.DR PO SCH ×2 (09:09→18:01)
[2017-12-27] MEDS: LOSARTAN POTASSIUM 50 MG TABLET PO SCH (09:10)
[2017-12-27] MEDS: HYDROCHLOROTHIAZIDE 12.5 MG CAPSULE PO SCH (09:11)
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
[2017-12-27] MEDS: FINASTERIDE 5 MG TABLET PO SCH (18:01)
[2017-12-27] MEDS: TAMSULOSIN HCL 0.4 MG CAP.SR.24H PO SCH (18:01)
[2017-12-27] MEDS: MELATONIN 3 MG TABLET PO SCH (18:01)
[2017-12-27] MEDS: LIDOCAINE 5% (700 MG) TRANSDERMAL ADH..PATCH TP SCH (18:01)
[2017-12-27] MEDS: RISPERIDONE 0.25 MG TABLET PO SCH (21:39)
[2017-12-28] MEDS: PHARMACY COMMUNICATION ORDER MC SCH (05:15)
[2017-12-28] MEDS: LOSARTAN POTASSIUM 50 MG TABLET PO SCH (10:40)
[2017-12-28] MEDS: DIVALPROEX SODIUM 250 MG TABLET.DR PO SCH ×2 (10:41→17:15)
[2017-12-28] MEDS: POLYETHYLENE GLYCOL 3350 POWDER 17 GM/1 PACKET PO SCH (10:43)
[2017-12-28] MEDS: POTASSIUM CHLORIDE 20 MEQ/15 ML UDCUP PO SCH ×2 (10:45→21:07)
[2017-12-28] MEDS: HYDROCHLOROTHIAZIDE 12.5 MG CAPSULE PO SCH (10:47)
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
[2017-12-28] MEDS: TAMSULOSIN HCL 0.4 MG CAP.SR.24H PO SCH (17:15)
[2017-12-28] MEDS: FINASTERIDE 5 MG TABLET PO SCH (17:15)
[2017-12-28] MEDS: LIDOCAINE 5% (700 MG) TRANSDERMAL ADH..PATCH TP SCH (17:16)
[2017-12-28] MEDS: MELATONIN 3 MG TABLET PO SCH (18:18)
[2017-12-28] MEDS: RISPERIDONE 0.25 MG TABLET PO SCH (21:07)
[2017-12-29] MEDS: PHARMACY COMMUNICATION ORDER MC SCH (05:36)
[2017-12-29] MEDS: DIVALPROEX SODIUM 250 MG TABLET.DR PO SCH ×2 (10:38→17:18)
[2017-12-29] MEDS: POTASSIUM CHLORIDE 20 MEQ/15 ML UDCUP PO SCH ×2 (10:39→21:58)
[2017-12-29] MEDS: POLYETHYLENE GLYCOL 3350 POWDER 17 GM/1 PACKET PO SCH (10:39)
[2017-12-29] MEDS: LOSARTAN POTASSIUM 25 MG TABLET PO SCH (10:40)
[2017-12-29] MEDS: HYDROCHLOROTHIAZIDE 12.5 MG CAPSULE PO SCH (10:40)
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
[2017-12-29] MEDS: LIDOCAINE 5% (700 MG) TRANSDERMAL ADH..PATCH TP SCH (17:18)
[2017-12-29] MEDS: FINASTERIDE 5 MG TABLET PO SCH (17:18)
[2017-12-29] MEDS: TAMSULOSIN HCL 0.4 MG CAP.SR.24H PO SCH (17:18)
[2017-12-29] MEDS: MELATONIN 3 MG TABLET PO SCH (17:19)
[2017-12-29] MEDS: RISPERIDONE 0.25 MG TABLET PO SCH (21:58)
[2017-12-30] MEDS: PHARMACY COMMUNICATION ORDER MC SCH (05:05)
[2017-12-30] MEDS: POTASSIUM CHLORIDE 20 MEQ/15 ML UDCUP PO SCH ×2 (10:37→21:14)
[2017-12-30] MEDS: DIVALPROEX SODIUM 250 MG TABLET.DR PO SCH ×2 (10:37→17:52)
[2017-12-30] MEDS: POLYETHYLENE GLYCOL 3350 POWDER 17 GM/1 PACKET PO SCH (10:37)
[2017-12-30] MEDS: HYDROCHLOROTHIAZIDE 12.5 MG CAPSULE PO SCH (10:46)
[2017-12-30] MEDS: LOSARTAN POTASSIUM 25 MG TABLET PO SCH (10:47)
[2017-12-30] MEDS: TAMSULOSIN HCL 0.4 MG CAP.SR.24H PO SCH (17:52)
[2017-12-30] MEDS: FINASTERIDE 5 MG TABLET PO SCH (17:52)
[2017-12-30] MEDS: LIDOCAINE 5% (700 MG) TRANSDERMAL ADH..PATCH TP SCH (17:54)
[2017-12-30] MEDS: MELATONIN 3 MG TABLET PO SCH (18:03)
[2017-12-30] MEDS: RISPERIDONE 0.25 MG TABLET PO SCH (21:14)
[2017-12-31] MEDS: PHARMACY COMMUNICATION ORDER MC SCH (05:12)
[2017-12-31] MEDS: DIVALPROEX SODIUM 250 MG TABLET.DR PO SCH ×2 (10:26→17:26)
[2017-12-31] MEDS: POTASSIUM CHLORIDE 20 MEQ/15 ML UDCUP PO SCH ×2 (10:27→21:36)
[2017-12-31] MEDS: POLYETHYLENE GLYCOL 3350 POWDER 17 GM/1 PACKET PO SCH (10:27)
[2017-12-31] MEDS: HYDROCHLOROTHIAZIDE 12.5 MG CAPSULE PO SCH (10:28)
[2017-12-31] MEDS: LOSARTAN POTASSIUM 25 MG TABLET PO SCH (10:29)
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
[2017-12-31] MEDS: TAMSULOSIN HCL 0.4 MG CAP.SR.24H PO SCH (17:26)
[2017-12-31] MEDS: FINASTERIDE 5 MG TABLET PO SCH (17:26)
[2017-12-31] MEDS: LIDOCAINE 5% (700 MG) TRANSDERMAL ADH..PATCH TP SCH (17:28)
[2017-12-31] MEDS: MELATONIN 3 MG TABLET PO SCH (17:29)
[2017-12-31] MEDS: RISPERIDONE 0.25 MG TABLET PO SCH (21:36)
[2018-01-01] MEDS: PHARMACY COMMUNICATION ORDER MC SCH (05:38)
[2018-01-01] MEDS: HYDROCHLOROTHIAZIDE 12.5 MG CAPSULE PO SCH (09:43)
[2018-01-01] MEDS: DIVALPROEX SODIUM 250 MG TABLET.DR PO SCH ×2 (09:43→18:30)
[2018-01-01] MEDS: LOSARTAN POTASSIUM 25 MG TABLET PO SCH (09:43)
[2018-01-01] MEDS: POLYETHYLENE GLYCOL 3350 POWDER 17 GM/1 PACKET PO SCH (09:43)
[2018-01-01] MEDS: POTASSIUM CHLORIDE 20 MEQ/15 ML UDCUP PO SCH ×2 (09:43→21:07)
[2018-01-01] MEDS: FINASTERIDE 5 MG TABLET PO SCH (18:30)
[2018-01-01] MEDS: MELATONIN 3 MG TABLET PO SCH (18:30)
[2018-01-01] MEDS: TAMSULOSIN HCL 0.4 MG CAP.SR.24H PO SCH (18:30)
[2018-01-01] MEDS: LIDOCAINE 5% (700 MG) TRANSDERMAL ADH..PATCH TP SCH (18:31)
[2018-01-01] MEDS: RISPERIDONE 0.25 MG TABLET PO SCH (21:07)
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
[2018-01-02] MEDS: PHARMACY COMMUNICATION ORDER MC SCH (05:04)
[2018-01-02] MEDS: POLYETHYLENE GLYCOL 3350 POWDER 17 GM/1 PACKET PO SCH (10:18)
[2018-01-02] MEDS: LOSARTAN POTASSIUM 25 MG TABLET PO SCH (10:18)
[2018-01-02] MEDS: HYDROCHLOROTHIAZIDE 12.5 MG CAPSULE PO SCH (10:18)
[2018-01-02] MEDS: DIVALPROEX SODIUM 250 MG TABLET.DR PO SCH ×2 (10:18→17:47)
[2018-01-02] MEDS: POTASSIUM CHLORIDE 20 MEQ/15 ML UDCUP PO SCH ×2 (10:18→22:03)
[2018-01-02] MEDS: LIDOCAINE 5% (700 MG) TRANSDERMAL ADH..PATCH TP SCH (17:47)
[2018-01-02] MEDS: TAMSULOSIN HCL 0.4 MG CAP.SR.24H PO SCH (17:47)
[2018-01-02] MEDS: FINASTERIDE 5 MG TABLET PO SCH (17:47)
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
[2018-01-02] MEDS: MELATONIN 3 MG TABLET PO SCH (18:54)
[2018-01-02] MEDS: RISPERIDONE 0.25 MG TABLET PO SCH (22:03)
[2018-01-03] MEDS: PHARMACY COMMUNICATION ORDER MC SCH (05:11)
[2018-01-03] MEDS: POLYETHYLENE GLYCOL 3350 POWDER 17 GM/1 PACKET PO SCH (09:56)
[2018-01-03] MEDS: POTASSIUM CHLORIDE 20 MEQ/15 ML UDCUP PO SCH ×2 (09:56→21:35)
[2018-01-03] MEDS: DIVALPROEX SODIUM 250 MG TABLET.DR PO SCH ×2 (09:56→17:58)
[2018-01-03] MEDS: HYDROCHLOROTHIAZIDE 12.5 MG CAPSULE PO SCH (09:56)
[2018-01-03] MEDS: LOSARTAN POTASSIUM 25 MG TABLET PO SCH (09:57)
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
[2018-01-03] MEDS: FINASTERIDE 5 MG TABLET PO SCH (17:58)
[2018-01-03] MEDS: MELATONIN 3 MG TABLET PO SCH (17:58)
[2018-01-03] MEDS: TAMSULOSIN HCL 0.4 MG CAP.SR.24H PO SCH (17:58)
[2018-01-03] MEDS: LIDOCAINE 5% (700 MG) TRANSDERMAL ADH..PATCH TP SCH (18:02)
[2018-01-03] MEDS: RISPERIDONE 0.25 MG TABLET PO SCH (21:35)
[2018-01-04] MEDS: PHARMACY COMMUNICATION ORDER MC SCH (05:18)
[2018-01-04] MEDS: DIVALPROEX SODIUM 250 MG TABLET.DR PO SCH ×2 (10:19→18:31)
[2018-01-04] MEDS: POLYETHYLENE GLYCOL 3350 POWDER 17 GM/1 PACKET PO SCH (10:19)
[2018-01-04] MEDS: HYDROCHLOROTHIAZIDE 12.5 MG CAPSULE PO SCH (10:19)
[2018-01-04] MEDS: LOSARTAN POTASSIUM 25 MG TABLET PO SCH (10:20)
[2018-01-04] MEDS: POTASSIUM CHLORIDE 20 MEQ/15 ML UDCUP PO SCH ×2 (10:20→21:46)
--- NOTE | 2018-01-04 10:29 | Physician Advisory Note ---
Physician Advisor ProgressNote .: [facility] I have reviewed the medical record for this patient. Physician Advisor Statement: Please don't forget to keep in daily notes: 1. "dementia with associated delirium & behavioral disturbance" [possibly due to adverse effect of specific med(s)? or due to dementia itself?] - Dementia alone is not typically a principal reason for admission, & Dx #1 is now always supposed to be the "Principal Dx" requiring the admission. 2. bradycardia "with prolonged QT, suspect due to adverse effect of " (specific Rx, or "polypharmacy w/ these meds in combination: " or ) 3. "[acute? chronic?] anemia, suspect due to nutritional ____ defic" - tiltrotor crew chief notes 11/21 & subsequently recommend diet include adequate Fe, dietary supplements ... 4. Please continue to adjust any "copied" narrative info to keep it accurate for each day (tends to be more of an issue in the first few days of adm). 5. Points to include in hosp course for DCS: A. "ARF recurred on 11/15 & 11/27, likely due to [poor po intake + adverse effects of Namenda/HCTZ?], requiring repeated tx w/IVF. Subsequently, Namenda & HCTZ were discontinued." B. "Relative hypotension developed by mid-November, so losartan was decreased." Thanks! CK
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
[2018-01-04] MEDS: FINASTERIDE 5 MG TABLET PO SCH (18:31)
[2018-01-04] MEDS: LIDOCAINE 5% (700 MG) TRANSDERMAL ADH..PATCH TP SCH (18:31)
[2018-01-04] MEDS: TAMSULOSIN HCL 0.4 MG CAP.SR.24H PO SCH (18:31)
[2018-01-04] MEDS: RISPERIDONE 0.25 MG TABLET PO SCH (21:46)
[2018-01-04] MEDS: MELATONIN 3 MG TABLET PO SCH (21:46)
[2018-01-05] MEDS: PHARMACY COMMUNICATION ORDER MC SCH (05:01)
[2018-01-05] MEDS: POTASSIUM CHLORIDE 20 MEQ/15 ML UDCUP PO SCH ×2 (10:37→21:32)
[2018-01-05] MEDS: POLYETHYLENE GLYCOL 3350 POWDER 17 GM/1 PACKET PO SCH (10:37)
[2018-01-05] MEDS: DIVALPROEX SODIUM 250 MG TABLET.DR PO SCH ×2 (10:37→18:39)
[2018-01-05] MEDS: MULTIVITAMINS W-IRON TABLET, CHEWABLE PO SCH (10:38)
[2018-01-05] MEDS: LOSARTAN POTASSIUM 25 MG TABLET PO SCH (10:44)
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
[2018-01-05] MEDS: FINASTERIDE 5 MG TABLET PO SCH (18:39)
[2018-01-05] MEDS: TAMSULOSIN HCL 0.4 MG CAP.SR.24H PO SCH (18:39)
[2018-01-05] MEDS: MELATONIN 3 MG TABLET PO SCH (18:41)
[2018-01-05] MEDS: LIDOCAINE 5% (700 MG) TRANSDERMAL ADH..PATCH TP SCH (18:41)
[2018-01-05] MEDS: RISPERIDONE 0.25 MG TABLET PO SCH (21:32)
[2018-01-06] MEDS: PHARMACY COMMUNICATION ORDER MC SCH (05:13)
[2018-01-06] MEDS: LOSARTAN POTASSIUM 25 MG TABLET PO SCH (10:49)
[2018-01-06] MEDS: MULTIVITAMINS W-IRON TABLET, CHEWABLE PO SCH (10:49)
[2018-01-06] MEDS: POTASSIUM CHLORIDE 20 MEQ/15 ML UDCUP PO SCH ×2 (10:49→22:13)
[2018-01-06] MEDS: DIVALPROEX SODIUM 250 MG TABLET.DR PO SCH ×2 (10:49→22:12)
[2018-01-06] MEDS: POLYETHYLENE GLYCOL 3350 POWDER 17 GM/1 PACKET PO SCH (10:49)
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
[2018-01-06] MEDS: FINASTERIDE 5 MG TABLET PO SCH (22:12)
[2018-01-06] MEDS: TAMSULOSIN HCL 0.4 MG CAP.SR.24H PO SCH (22:12)
[2018-01-06] MEDS: RISPERIDONE 0.25 MG TABLET PO SCH (22:12)
[2018-01-06] MEDS: MELATONIN 3 MG TABLET PO SCH (22:13)
[2018-01-06] MEDS: LIDOCAINE 5% (700 MG) TRANSDERMAL ADH..PATCH TP SCH (22:13)
[2018-01-07] MEDS: PHARMACY COMMUNICATION ORDER MC SCH (05:25)
[2018-01-07] MEDS: DIVALPROEX SODIUM 250 MG TABLET.DR PO SCH ×2 (09:49→17:02)
[2018-01-07] MEDS: POTASSIUM CHLORIDE 20 MEQ/15 ML UDCUP PO SCH ×2 (09:49→22:12)
[2018-01-07] MEDS: POLYETHYLENE GLYCOL 3350 POWDER 17 GM/1 PACKET PO SCH (09:50)
[2018-01-07] MEDS: MULTIVITAMINS W-IRON TABLET, CHEWABLE PO SCH (09:51)
[2018-01-07] MEDS: LOSARTAN POTASSIUM 25 MG TABLET PO SCH (09:51)
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
[2018-01-07] MEDS: LIDOCAINE 5% (700 MG) TRANSDERMAL ADH..PATCH TP SCH (16:58)
[2018-01-07] MEDS: FINASTERIDE 5 MG TABLET PO SCH (17:02)
[2018-01-07] MEDS: TAMSULOSIN HCL 0.4 MG CAP.SR.24H PO SCH (17:02)
[2018-01-07] MEDS ORDERED: HYDROCORTISONE 1% CREAM 28.35 GM TP PRN (17:11)
[2018-01-07] MEDS: MELATONIN 3 MG TABLET PO SCH (18:00)
[2018-01-07] MEDS: RISPERIDONE 0.25 MG TABLET PO SCH (22:12)
[2018-01-08] MEDS: PHARMACY COMMUNICATION ORDER MC SCH (05:29)
[2018-01-08] MEDS: LOSARTAN POTASSIUM 25 MG TABLET PO SCH (09:18)
[2018-01-08] MEDS: MULTIVITAMINS W-IRON TABLET, CHEWABLE PO SCH (09:18)
[2018-01-08] MEDS: DIVALPROEX SODIUM 250 MG TABLET.DR PO SCH ×2 (09:18→18:08)
[2018-01-08] MEDS: POTASSIUM CHLORIDE 20 MEQ/15 ML UDCUP PO SCH (09:18)
[2018-01-08] MEDS: POLYETHYLENE GLYCOL 3350 POWDER 17 GM/1 PACKET PO SCH (09:19)
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
[2018-01-08] MEDS: TAMSULOSIN HCL 0.4 MG CAP.SR.24H PO SCH (18:08)
[2018-01-08] MEDS: RISPERIDONE 0.25 MG TABLET PO SCH (21:28)
[2018-01-08] MEDS: MELATONIN 3 MG TABLET PO SCH (21:28)
[2018-01-09] MEDS: PHARMACY COMMUNICATION ORDER MC SCH (05:55)
[2018-01-09] MEDS: LOSARTAN POTASSIUM 25 MG TABLET PO SCH (09:17)
[2018-01-09] MEDS: MULTIVITAMINS W-IRON TABLET, CHEWABLE PO SCH (09:18)
[2018-01-09] MEDS: POLYETHYLENE GLYCOL 3350 POWDER 17 GM/1 PACKET PO SCH (09:18)
[2018-01-09] MEDS: DIVALPROEX SODIUM 250 MG TABLET.DR PO SCH ×2 (09:18→17:19)
[2018-01-09] MEDS ORDERED: HALOPERIDOL LACTATE INJ 5 MG/1 ML VIAL IV PRN (12:42)
[2018-01-09] MEDS ORDERED: HALOPERIDOL 2 MG TABLET PO PRN (15:23)
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
[2018-01-09] MEDS: MELATONIN 3 MG TABLET PO SCH (23:34)
[2018-01-09] MEDS: RISPERIDONE 0.25 MG TABLET PO SCH (23:34)
[2018-01-10] MEDS: PHARMACY COMMUNICATION ORDER MC SCH (05:22)
[2018-01-10] MEDS: MULTIVITAMINS W-IRON TABLET, CHEWABLE PO SCH (09:19)
[2018-01-10] MEDS: DIVALPROEX SODIUM 250 MG TABLET.DR PO SCH ×2 (09:19→17:19)
[2018-01-10] MEDS: LOSARTAN POTASSIUM 25 MG TABLET PO SCH (09:20)
[2018-01-10] MEDS: RISPERIDONE 0.25 MG TABLET PO SCH (21:29)
[2018-01-10] MEDS: MELATONIN 3 MG TABLET PO SCH (21:29)
[2018-01-11] MEDS: PHARMACY COMMUNICATION ORDER MC SCH (05:13)
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
[2018-01-11] MEDS: LOSARTAN POTASSIUM 25 MG TABLET PO SCH (09:17)
[2018-01-11] MEDS: DIVALPROEX SODIUM 250 MG TABLET.DR PO SCH ×2 (09:17→18:08)
[2018-01-11] MEDS: MULTIVITAMINS W-IRON TABLET, CHEWABLE PO SCH (09:17)
[2018-01-11] MEDS: RISPERIDONE 0.25 MG TABLET PO SCH (22:23)
[2018-01-11] MEDS: MELATONIN 3 MG TABLET PO SCH (22:23)
[2018-01-12] MEDS: MULTIVITAMINS W-IRON TABLET, CHEWABLE PO SCH (09:23)
[2018-01-12] MEDS: LOSARTAN POTASSIUM 25 MG TABLET PO SCH (09:23)
[2018-01-12] MEDS: DIVALPROEX SODIUM 250 MG TABLET.DR PO SCH ×2 (09:23→18:13)
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
[2018-01-12] MEDS: MELATONIN 3 MG TABLET PO SCH (19:22)
[2018-01-12] MEDS: RISPERIDONE 0.25 MG TABLET PO SCH (22:13)
[2018-01-13] MEDS: DIVALPROEX SODIUM 250 MG TABLET.DR PO SCH ×2 (09:51→17:19)
[2018-01-13] MEDS: MULTIVITAMINS W-IRON TABLET, CHEWABLE PO SCH (09:51)
[2018-01-13] MEDS: LOSARTAN POTASSIUM 25 MG TABLET PO SCH (09:51)
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
[2018-01-13] MEDS: RISPERIDONE 0.25 MG TABLET PO SCH (21:13)
[2018-01-13] MEDS: MELATONIN 3 MG TABLET PO SCH (21:13)
[2018-01-14] MEDS: DIVALPROEX SODIUM 250 MG TABLET.DR PO SCH ×2 (11:00→18:25)
[2018-01-14] MEDS: LOSARTAN POTASSIUM 25 MG TABLET PO SCH (11:01)
[2018-01-14] MEDS: MULTIVITAMINS W-IRON TABLET, CHEWABLE PO SCH (11:01)
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
[2018-01-14] MEDS: MELATONIN 3 MG TABLET PO SCH (19:20)
[2018-01-14] MEDS: RISPERIDONE 0.25 MG TABLET PO SCH (21:00)
[2018-01-15] MEDS: DIVALPROEX SODIUM 250 MG TABLET.DR PO SCH ×2 (11:52→17:56)
[2018-01-15] MEDS: LOSARTAN POTASSIUM 25 MG TABLET PO SCH (11:52)
[2018-01-15] MEDS: MULTIVITAMINS W-IRON TABLET, CHEWABLE PO SCH (11:53)
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
[2018-01-15] MEDS: RISPERIDONE 0.25 MG TABLET PO SCH (22:07)
[2018-01-15] MEDS: MELATONIN 3 MG TABLET PO SCH (22:08)
[2018-01-16] MEDS: LOSARTAN POTASSIUM 25 MG TABLET PO SCH (10:55)
[2018-01-16] MEDS: DIVALPROEX SODIUM 250 MG TABLET.DR PO SCH ×2 (10:56→17:55)
[2018-01-16] MEDS: MULTIVITAMINS W-IRON TABLET, CHEWABLE PO SCH (10:56)
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
[2018-01-16] MEDS: MELATONIN 3 MG TABLET PO SCH (21:42)
[2018-01-16] MEDS: RISPERIDONE 0.25 MG TABLET PO SCH (21:42)
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
[2018-01-17] MEDS: DIVALPROEX SODIUM 250 MG TABLET.DR PO SCH ×2 (10:07→17:51)
[2018-01-17] MEDS: MULTIVITAMINS W-IRON TABLET, CHEWABLE PO SCH (10:07)
[2018-01-17] MEDS: LOSARTAN POTASSIUM 25 MG TABLET PO SCH (10:07)
[2018-01-17] MEDS ORDERED: ACETAMINOPHEN 325 MG TABLET PO PRN (16:37)
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
[2018-01-17] MEDS: TAMSULOSIN HCL 0.4 MG CAP.SR.24H PO SCH (17:51)
[2018-01-17] MEDS: RISPERIDONE 0.25 MG TABLET PO SCH (22:37)
[2018-01-17] MEDS: MELATONIN 3 MG TABLET PO SCH (22:37)
[2018-01-18] MEDS: FINASTERIDE 5 MG TABLET PO SCH (09:45)
[2018-01-18] MEDS: DIVALPROEX SODIUM 250 MG TABLET.DR PO SCH ×2 (09:45→17:29)
[2018-01-18] MEDS: MULTIVITAMINS W-IRON TABLET, CHEWABLE PO SCH (09:45)
[2018-01-18] MEDS: LOSARTAN POTASSIUM 25 MG TABLET PO SCH (09:45)
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
[2018-01-18] MEDS: TAMSULOSIN HCL 0.4 MG CAP.SR.24H PO SCH (17:29)
[2018-01-18] MEDS: RISPERIDONE 0.25 MG TABLET PO SCH (21:59)
[2018-01-18] MEDS: MELATONIN 3 MG TABLET PO SCH (21:59)
[2018-01-19] MEDS: MULTIVITAMINS W-IRON TABLET, CHEWABLE PO SCH (10:22)
[2018-01-19] MEDS: FINASTERIDE 5 MG TABLET PO SCH (10:23)
[2018-01-19] MEDS: LOSARTAN POTASSIUM 25 MG TABLET PO SCH (10:23)
[2018-01-19] MEDS: DIVALPROEX SODIUM 250 MG TABLET.DR PO SCH ×2 (10:23→18:10)
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
[2018-01-19] MEDS: TAMSULOSIN HCL 0.4 MG CAP.SR.24H PO SCH (18:10)
[2018-01-19] MEDS: RISPERIDONE 0.25 MG TABLET PO SCH (21:25)
[2018-01-19] MEDS: MELATONIN 3 MG TABLET PO SCH (21:25)
[2018-01-20] MEDS: LOSARTAN POTASSIUM 25 MG TABLET PO SCH (09:09)
[2018-01-20] MEDS: FINASTERIDE 5 MG TABLET PO SCH (09:10)
[2018-01-20] MEDS: MULTIVITAMINS W-IRON TABLET, CHEWABLE PO SCH (09:10)
[2018-01-20] MEDS: DIVALPROEX SODIUM 250 MG TABLET.DR PO SCH (09:10)
[2018-01-20] MEDS: TAMSULOSIN HCL 0.4 MG CAP.SR.24H PO SCH (17:33)
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
[2018-01-20] MEDS: MELATONIN 3 MG TABLET PO SCH (21:31)
[2018-01-20] MEDS: RISPERIDONE 0.25 MG TABLET PO SCH (21:32)
[2018-01-21] MEDS: LOSARTAN POTASSIUM 25 MG TABLET PO SCH (09:43)
[2018-01-21] MEDS: FINASTERIDE 5 MG TABLET PO SCH (09:43)
[2018-01-21] MEDS: MULTIVITAMINS W-IRON TABLET, CHEWABLE PO SCH (09:43)
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
[2018-01-21] MEDS: TAMSULOSIN HCL 0.4 MG CAP.SR.24H PO SCH (17:18)
[2018-01-21] MEDS: DIVALPROEX SODIUM 125 MG CAP.SPRINK PO SCH (17:55)
[2018-01-21] MEDS ORDERED: CLONIDINE HCL 0.1 MG TABLET PO ONE (18:00)
[2018-01-21] MEDS: MELATONIN 3 MG TABLET PO SCH (21:43)
[2018-01-21] MEDS: RISPERIDONE 0.25 MG TABLET PO SCH (21:43)
[2018-01-22 07:27] LABS: HEMATOCRIT 34.6 % (37.9-51.0); MEAN CORPUSCULAR HEMOGLOBIN 30.3 pg (27.0-33.4); MEAN CORPUSCULAR HGB CONC 34.6 g/dL (32.0-36.0); MEAN CORPUSCULAR VOLUME 88 fl (80-97); PLATELET COUNT 205 10^3/uL (150-450); RED BLOOD COUNT 3.96 10^6/uL (4.35-5.55); RED CELL DISTRIBUTION WIDTH 12.9 % (11.5-14.0); WHITE BLOOD COUNT 6.3 10^3/uL (4.0-10.5)
[2018-01-22 07:34] LABS: INTERNATIONAL RATION (INR) 1.04; PARTIAL THROMBOPLASTIN TIME 32.7 SEC (23.5-35.8); PROTHROMBIN TIME 14.1 SEC (11.4-15.4)
[2018-01-22 07:53] LABS: ALANINE AMINOTRANSFERASE 38 U/L (21-72); ALBUMIN 3.2 g/dL (3.5-5.0); ALKALINE PHOSPHATASE 73 U/L (38-126); ANION GAP 9 (5-19); ASPARTATE AMINO TRANSFERASE 27 U/L (17-59); BILIRUBIN,DIRECT 0.2 mg/dL (0.0-0.4); BILIRUBIN,TOTAL 0.4 mg/dL (0.2-1.3); BLOOD UREA NITROGEN 24 mg/dL (7-20); CALCIUM 9.7 mg/dL (8.4-10.2); CARBON DIOXIDE 28 mmol/L (22-30); CHLORIDE 105 mmol/L (98-107); GLUCOSE 116 mg/dL (75-110); SODIUM 141.7 mmol/L (137-145); TOTAL PROTEIN 5.6 g/dL (6.3-8.2)
[2018-01-22] MEDS: MULTIVITAMINS W-IRON TABLET, CHEWABLE PO SCH (10:42)
[2018-01-22] MEDS: DIVALPROEX SODIUM 125 MG CAP.SPRINK PO SCH ×3 (10:42→17:55)
[2018-01-22] MEDS: LOSARTAN POTASSIUM 25 MG TABLET PO SCH (10:43)
[2018-01-22] MEDS: FINASTERIDE 5 MG TABLET PO SCH (10:43)
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
[2018-01-22] MEDS: TAMSULOSIN HCL 0.4 MG CAP.SR.24H PO SCH (17:55)
[2018-01-22] MEDS: MELATONIN 3 MG TABLET PO SCH (21:40)
[2018-01-22] MEDS: RISPERIDONE 0.25 MG TABLET PO SCH (21:43)
[2018-01-23] MEDS: FINASTERIDE 5 MG TABLET PO SCH (10:21)
[2018-01-23] MEDS: MULTIVITAMINS W-IRON TABLET, CHEWABLE PO SCH (10:21)
[2018-01-23] MEDS: LOSARTAN POTASSIUM 25 MG TABLET PO SCH (10:22)
[2018-01-23] MEDS: DIVALPROEX SODIUM 125 MG CAP.SPRINK PO SCH ×3 (10:22→17:52)
[2018-01-23] MEDS: TAMSULOSIN HCL 0.4 MG CAP.SR.24H PO SCH (17:53)
[2018-01-23] MEDS: MELATONIN 3 MG TABLET PO SCH (21:15)
[2018-01-23] MEDS ORDERED: RISPERIDONE 0.25 MG TABLET PO SCH (22:00)
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
[2018-01-24 08:03] VITALS: BP 142/68
[2018-01-24] MEDS: LOSARTAN POTASSIUM 25 MG TABLET PO SCH (10:02)
[2018-01-24] MEDS: MULTIVITAMINS W-IRON TABLET, CHEWABLE PO SCH (10:02)
[2018-01-24] MEDS: FINASTERIDE 5 MG TABLET PO SCH (10:02)
[2018-01-24] MEDS: DIVALPROEX SODIUM 125 MG CAP.SPRINK PO SCH (10:03)
== END 2018-01-24 12:40 | DRG 683 ==
LOC: ER 16:56 → EH 23:29 → 3N 11-10 05:25 → 4N 11-19 20:11
PROVIDERS: ADMIT Internal Medicine; ATTEND Internal Medicine
DX: N17.9 Acute kidney failure, unspecified (principal); F03.91 Unspecified dementia, unspecified severity, with behavioral disturbance; E78.5 Hyperlipidemia, unspecified; F41.9 Anxiety disorder, unspecified; F31.9 Bipolar disorder, unspecified; M19.90 Unspecified osteoarthritis, unspecified site; N40.0 Benign prostatic hyperplasia without lower urinary tract symptoms; R13.10 Dysphagia, unspecified; I12.9 Hypertensive chronic kidney disease with stage 1 through stage 4 chronic kidney disease, or unspecified chronic kidney disease; E11.22 Type 2 diabetes mellitus with diabetic chronic kidney disease; N18.2 Chronic kidney disease, stage 2 (mild); R00.1 Bradycardia, unspecified; J30.9 Allergic rhinitis, unspecified; T43.595A Adverse effect of other antipsychotics and neuroleptics, initial encounter; T44.1X5A Adverse effect of other parasympathomimetics [cholinergics], initial encounter; T43.225A Adverse effect of selective serotonin reuptake inhibitors, initial encounter; Z65.3 Problems related to other legal circumstances; D53.9 Nutritional anemia, unspecified; Z78.1 Physical restraint status; T39.395A Adverse effect of other nonsteroidal anti-inflammatory drugs [NSAID], initial encounter; K59.00 Constipation, unspecified; S00.01XA Abrasion of scalp, initial encounter; W19.XXXA Unspecified fall, initial encounter; Y92.239 Unspecified place in hospital as the place of occurrence of the external cause; R07.81 Pleurodynia; T50.2X5A Adverse effect of carbonic-anhydrase inhibitors, benzothiadiazides and other diuretics, initial encounter; T43.8X5A Adverse effect of other psychotropic drugs, initial encounter; R21 Rash and other nonspecific skin eruption; Z79.899 Other long term (current) drug therapy
CPT/HCPCS: 36415; 70450; 71045; 71046; 80048; 80053; 80164; 81001; 82550; 82553; 82607; 82728; 82746; 82962; 83036; 83540; 83550; 83735; 84100; 84443; 84466; 84484; 85025; 85027; 85045; 85610; 85730; 93005; 93010; 96372; 99285; J1630; J1644; J2060; J3490; J7030

== ENCOUNTER 2019-03-29 15:54 | Emergency (ER) | payer MEDICARE, OTHER ==
--- NOTE | 2019-03-29 16:49 | RADIOLOGY REPORT (SQ) ---
EXAM DESCRIPTION: HIP LEFT AP/LATERAL COMPLETED DATE/TIME: 03/29/2019 4:39 pm REASON FOR STUDY: rotation COMPARISON: None. NUMBER OF VIEWS: Two views. TECHNIQUE: AP pelvis and additional frog-leg view of the left hip. LIMITATIONS: None. FINDINGS: MINERALIZATION: Normal. LEFT HIP: No fracture or dislocation. Hardware in the femoral neck and femoral shaft. No worrisome bone lesions. RIGHT HIP: No fracture or dislocation. No worrisome bone lesions. PUBIS AND ISCHIUM: No fracture. PELVIS: No fracture. SACRUM: No fracture or dislocation. No worrisome bone lesions. LOWER LUMBAR SPINE: No fracture or dislocation. No worrisome bone lesions. No significant disc disea se. SOFT TISSUES: No findings. OTHER: No other significant finding. IMPRESSION: SURGICAL CHANGES AND HARDWARE. NO RADIOGRAPHIC EVIDENCE OF ACUTE INJURY. TECHNICAL DOCUMENTATION: JOB ID: [id number] [employer]- All Rights Reserved Reading location - IP/workstation name: [email or web address]
--- NOTE | 2019-03-29 17:18 | ER Document Report ---
Addendum entered and electronically signed by GERTRUDE CALIX PA-C 03/29/19 19:57: Discharge - Discharge Clinical Impression: Left hip pain Condition: Stable Disposition: HOME-SNF (ED ONLY) Additional Instructions: Rest, Ice, Compression, Elevation Tylenol/ibuprofen as needed Light stretches daily Strength exercises as able Moist heat and massage may help F/u with your PCP in 3-5 days for a recheck Call orthopedics for further evaluation/management as needed Return to the ED with any worsening symptoms and/or development of fever, headache, chest pain, palpitations, syncope, shortness of breath, trouble breathing, abdominal pain, n/v/d, muscle weakness/paralysis, numbness/tingling, swelling, redness, or other worsening symptoms that are concerning to you. Referrals: [facility] [Provider Group] - Follow up as needed Original Note: ED General - General Chief Complaint: Fall Stated Complaint: POSSIBLE LEFT HIP FRACTURE Time Seen by Provider: 03/29/19 16:24 Primary Care Provider: [facility] [Provider Group] - Follow up as needed TRAVEL OUTSIDE OF THE [place] IN LAST 30 DAYS: No - HPI Notes: Patient is an 79-year-old male with history of Alzheimer's dementia, hypertension, type 2 diabetes who presents with with complaints of left hip pain and fall prior to arrival. Patient states that he was recently discharged from [facility] for left hip fracture and had surgery performed. He is to be doing therapy, but is not able to ambulate normally due to weakness. Patient states that she left him unsupervised when he was sleeping which is when he tried to get up and walk and fell. states that she has his sleeping arrangements very close to the floor and surrounded by mattresses/padding. Patient has been complaining of some left hip pain. They have not noticed any bruising. He is otherwise at baseline per family. He has been able to eat and drink, but does have decreased p.o. intake which is not uncommon for him. He is still producing normal amount of wet and dirty diapers. 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 Per family as well: Denies any headache, fever, head injury, neck pain, URI, sore throat, chest pain, syncope, cough, shortness of breath, wheeze, dyspnea, abdominal pain, nausea/vomiting/diarrhea, urinary retention, dysuria, hematuria, or rash. - Related Data Allergies/Adverse Reactions: No Known Allergies Allergy (Verified 05/06/13 05:40) Past Medical History - Social History Smoking Status: Unknown if Ever Smoked Family History: Other - Unobtainable - Past Medical History Cardiac Medical History: Reports: Hx Hypercholesterolemia, Hx Hypertension - on meds Denies: Hx Coronary Artery Disease, Hx Heart Attack Pulmonary Medical History: Reports: Hx Bronchitis - hx of Denies: Hx Asthma, Hx COPD, Hx Pneumonia Neurological Medical History: Denies: Hx Cerebrovascular Accident, Hx Seizures Endocrine Medical History: Reports: Hx Diabetes Mellitus Type 2 Renal/ Medical History: Reports: Hx Benign Prostatic Hyperplasia. Denies: Hx Peritoneal Dialysis Musculoskeletal Medical History: Reports Hx Arthritis, Reports Hx Musculoskeletal Trauma Psychiatric Medical History: Denies: Hx Depression Traumatic Medical History: Reports: Hx Fractures Past Surgical History: Reports: Hx Appendectomy, Hx Tonsillectomy - Immunizations Immunizations up to date: No Hx Diphtheria, Pertussis, Tetanus Vaccination: No - unknown Review of Systems - Review of Systems -: Yes ROS unobtainable due to patient's medical condition Physical Exam - Notes Notes: PHYSICAL EXAMINATION: accompanied by female nurse GENERAL: Well-appearing, well-nourished and in no acute distress. A&Ox4. Answers questions appropriately. HEAD: Atraumatic, normocephalic. Non-tender. No truong sign EYES: Pupils equal round and reactive to light, extraocular movements intact, sclera anicteric, conjunctiva are normal. No raccoon eyes/entrapment ENT: EAC clear b/l. TM's intact b/l without erythema, fluid, or perforation. Nares patent and without discharge. oropharynx clear without exudates. No tonsilar hypertrophy or erythema. Moist mucous membranes. No sinus tenderness. No hemotympanum/CSF discharge. NECK: Normal range of motion, supple without lymphadenopathy. No rigidity. No obvious midline tenderness. LUNGS: Breath sounds clear to auscultation bilaterally and equal. No wheezes rales or rhonchi. HEART: Regular rate and rhythm without murmurs, rubs, gallops. ABDOMEN: Soft, nontender, nondistended abdomen. No guarding, no rebound. Normal bowel sounds present. No CVA tenderness bilaterally. Musculoskeletal: Lt hip: + mild tenderness to palp lateral hip. FROM at the joints distal. I am able to flex and extend the hip with minimal discomfort elicited. I am able to rotate minimally as well w/o significant discomfort. N/V intact distal. Ext otherwise b/l: FROM to passive/active. Strength 5+/5. No deficits noted. No bony tenderness of extremities. Back: FROM to passive/active. Strength 5+/5. No vertebral point tenderness, stepoffs, or deformities. No other bony tenderness or ecchymosis. Extremities: No cyanosis, clubbing, or edema b/l. Peripheral pulses 1+. Capillary refill less than 2 seconds. NEUROLOGICAL: Cranial nerves grossly intact. Normal speech. Reflexes 2+ b/l. Limited due to alzheimer's. PSYCH: Normal mood, normal affect. SKIN: Warm, Dry, normal turgor, no rashes or lesions noted. Course - Re-evaluation Re-evalutation: 03/29/19 18:25 Patient is an afebrile, well-hydrated, 79-year-old male who presents to the ED with left hip pain, suspect contusion s/p mechanical fall. Vitals are acceptable without any significant tachycardia, tachypnea, or hypoxia. PE is otherwise unremarkable for any neurovascular compromise, obvious tendon/ligament rupture, open fracture, septic joint. Hip XR, CT head/neck/pelvis unremarkable aside from noted left femoral neck fracture with internal hardware in place (secondary to recent hip fx and admit/discharge from [facility]). Patient is nontoxic-appearing. No other labs or imaging warranted at this time based on H&P. He is otherwise acting/behaving normally per family. Conservative measures otherwise for symptoms. Recheck with your PCM in 3-5 days. Call orthopedics for further guidance/management if needed. Return to the ED with any worsening/concerning symptoms otherwise as reviewed in discharge. is in agreement. 03/29/19 18:33 Transport will be here at 3am to take him to [facility]. Food tray will be ordered. Discharge - Discharge Clinical Impression: Left hip pain Condition: Stable Disposition: HOME, SELF-CARE Additional Instructions: Rest, Ice, Compression, Elevation Tylenol/ibuprofen as needed Light stretches daily Strength exercises as able Moist heat and massage may help F/u with your PCP in 3-5 days for a recheck Call orthopedics for further evaluation/management as needed Return to the ED with any worsening symptoms and/or development of fever, headache, chest pain, palpitations, syncope, shortness of breath, trouble breathing, abdominal pain, n/v/d, muscle weakness/paralysis, numbness/tingling, swelling, redness, or other worsening symptoms that are concerning to you. Referrals: [facility] [Provider Group] - Follow up as needed
--- NOTE | 2019-03-29 17:53 | RADIOLOGY REPORT (SQ) ---
EXAM DESCRIPTION: CT HEAD WITHOUT COMPLETED DATE/TIME: 03/29/2019 5:41 pm REASON FOR STUDY: fall COMPARISON: 12/15/2017 TECHNIQUE: Axial images acquired through the brain without intravenous contrast. Images reviewed wit h bone, brain and subdural windows. Images stored on PACS. All CT scanners at this facility use dose modulation, iterative reconstruction, and/or weight based d osing when appropriate to reduce radiation dose to as low as reasonably achievable (ALARA). [facility]: Dose Right [facility]: CareDose [facility]: Dose Right [facility]: Teradose 4D [facility]: Smart [employer] RADIATION DOSE: CT Rad equipment meets quality standard of care and radiation dose reduction techniq ues were employed. CTDIvol: 53.2 mGy. DLP: 1070 mGy-cm.. LIMITATIONS: None. FINDINGS: VENTRICLES: Normal size and contour. CEREBRUM: No masses. No hemorrhage. No midline shift. Stable white matter. No evidence for acute inf arction. CEREBELLUM: No masses. No hemorrhage. No alteration of density. No evidence for acute infarction. EXTRA-AXIAL SPACES: No fluid collections. ORBITS AND GLOBE: No intra- or extraconal masses. Normal contour of globe without masses. CALVARIUM: No fracture. PARANASAL SINUSES: No fluid or mucosal thickening. SOFT TISSUES: No mass or hematoma. OTHER: No other significant finding. IMPRESSION: NO ACUTE INTRACRANIAL FINDINGS. EVIDENCE OF ACUTE STROKE: NO. TECHNICAL DOCUMENTATION: JOB ID: [id number] [place]-72 Quality ID # 436: Final reports with documentation of one or more dose reduction techniques (e.g., Au tomated exposure control, adjustment of the mA and/or kV according to patient size, use of iterative reconstruction technique) 2010 [employer]- All Rights Reserved Reading location - IP/workstation name: [email or web address]
--- NOTE | 2019-03-29 17:57 | RADIOLOGY REPORT (SQ) ---
EXAM DESCRIPTION: CT CERVICAL SPINE WITHOUT COMPLETED DATE/TIME: 03/29/2019 5:41 pm REASON FOR STUDY: fall COMPARISON: None. TECHNIQUE: Axial images acquired through the cervical spine without intravenous contrast. Images re viewed with lung, soft tissue and bone windows. Reconstructed coronal and sagittal MPR images review ed. Images stored on PACS. All CT scanners at this facility use dose modulation, iterative reconstruction, and/or weight based d osing when appropriate to reduce radiation dose to as low as reasonably achievable (ALARA). [facility]: Dose Right [facility]: CareDose [facility]: Dose Right [facility]: Teradose 4D [facility]: [employer] RADIATION DOSE: CT Rad equipment meets quality standard of care and radiation dose reduction techniq ues were employed. CTDIvol: 19.3 mGy. DLP: 380 mGy-cm. mGy. LIMITATIONS: None. FINDINGS: ALIGNMENT: Anatomic. MINERALIZATION: Normal. VERTEBRAL BODIES: No fractures or dislocation. 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 DISCS: Multilevel disc space narrowing with osteophytes. FACETS, LATERAL MASSES, POSTERIOR ELEMENTS: Facet arthropathy. No fractures. No dislocation. No ac osiel findings. HARDWARE: None in the spine. VISUALIZED RIBS: No fractures. LUNG APICES AND SOFT TISSUES: No acute findings. 1.6 cm right thyroid nodule. OTHER: No other significant finding. IMPRESSION: CHRONIC DEGENERATIVE CHANGES. NO ACUTE FINDINGS. TECHNICAL DOCUMENTATION: JOB ID: [id number] [place]-72 Quality ID # 436: Final reports with documentation of one or more dose reduction techniques (e.g., Au tomated exposure control, adjustment of the mA and/or kV according to patient size, use of iterative reconstruction technique) 2010 [email or web address]- All Rights Reserved Reading location - IP/workstation name: [email or web address]
--- NOTE | 2019-03-29 18:11 | RADIOLOGY REPORT (SQ) ---
EXAM DESCRIPTION: CT PELVIS WITHOUT COMPLETED DATE/TIME: 03/29/2019 5:41 pm REASON FOR STUDY: left hip pain s/p fall COMPARISON: None. TECHNIQUE: CT scan of the pelvis performed without intravenous or oral contrast. Images reviewed wit h lung, soft tissue, and bone windows. Reconstructed coronal and sagittal MPR images reviewed. All im ages stored on PACS. All CT scanners at this facility use dose modulation, iterative reconstruction, and/or weight based d osing when appropriate to reduce radiation dose to as low as reasonably achievable (ALARA). [facility]: Dose Right [facility]: CareDose [facility]: Dose Right [facility]: Teradose 4D [facility]: Smart [employer] RADIATION DOSE: CT Rad equipment meets quality standard of care and radiation dose reduction techniq ues were employed. CTDIvol: 35.0 mGy. DLP: 1047 mGy-cm.mGy. LIMITATIONS: None. FINDINGS: AORTA AND RETROPERITONEUM: No aneurysm. No retroperitoneal masses or adenopathy. BOWEL AND PERITONEAL CAVITY: No obvious masses or inflammatory changes. No free fluid. PELVIS, BLADDER, AND ABDOMINAL WALL:No free fluid. Unremarkable bladder. BONES: No acute findings. Left femoral neck fracture with internal fixation hardware in expected pos ition with lateral surgical changes from recent procedure. OTHER: No other significant finding. IMPRESSION: No pelvic fracture identified. Left femoral neck fracture with internal fixation hardwar e in expected position with lateral surgical changes from recent procedure. TECHNICAL DOCUMENTATION: JOB ID: [id number] [place]-72 Quality ID # 436: Final reports with documentation of one or more dose reduction techniques (e.g., Au tomated exposure control, adjustment of the mA and/or kV according to patient size, use of iterative reconstruction technique) 2010 [employer] All Rights Reserved Reading location - IP/workstation name: [email or web address]
[2019-03-29 20:18] VITALS: BP 139/86
== END 2019-03-29 20:18 ==
LOC: ER 15:54
DX: M25.552 Pain in left hip (principal); R53.1 Weakness; W18.30XA Fall on same level, unspecified, initial encounter; Y92.009 Unspecified place in unspecified non-institutional (private) residence as the place of occurrence of the external cause; G30.9 Alzheimer's disease, unspecified; F02.80 Dementia in other diseases classified elsewhere, unspecified severity, without behavioral disturbance, psychotic disturbance, mood disturbance, and anxiety; I10 Essential (primary) hypertension; E11.9 Type 2 diabetes mellitus without complications
CPT/HCPCS: 70450; 72125; 72192; 99285

== ENCOUNTER 2019-06-04 11:01 | Inpatient (IN) | payer MEDICARE, OTHER ==
--- NOTE | 2019-06-04 12:24 | RADIOLOGY REPORT (SQ) ---
EXAM DESCRIPTION: HIP RIGHT AP/LATERAL COMPLETED DATE/TIME: 06/04/2019 12:08 pm REASON FOR STUDY: bone tenderness COMPARISON: None. NUMBER OF VIEWS: Two views. TECHNIQUE: AP pelvis and additional frog-leg view of the right hip. LIMITATIONS: None. FINDINGS: MINERALIZATION: Normal. RIGHT HIP: Intertrochanteric fracture of the right hip. LEFT HIP: ORIF prior left hip fracture. PUBIS AND ISCHIUM: No fracture. PELVIS: No fracture. SACRUM: No fracture or dislocation. No worrisome bone lesions. LOWER LUMBAR SPINE: No fracture or dislocation. No worrisome bone lesions. No significant disc disea se. SOFT TISSUES: No findings. OTHER: No other significant finding. IMPRESSION: Intertrochanteric fracture of the right hip. TECHNICAL DOCUMENTATION: JOB ID: [id number] [employer]- All Rights Reserved Reading location - IP/workstation name: [email or web address]
--- NOTE | 2019-06-04 12:34 | RADIOLOGY REPORT (SQ) ---
EXAM DESCRIPTION: KNEE RIGHT 4 VIEWS COMPLETED DATE/TIME: 06/04/2019 12:08 pm REASON FOR STUDY: bone tenderness. COMPARISON: None. NUMBER OF VIEWS: Three views. TECHNIQUE: AP, lateral, and oblique radiographic images acquired of the right knee. LIMITATIONS: None. FINDINGS: MINERALIZATION: Normal. BONES: No acute fracture or dislocation. JOINT: There is no significant joint effusion. There are posterior spurs on the patella. SOFT TISSUES: No soft tissue swelling. No radio-opaque foreign body. OTHER: No other significant finding. IMPRESSION: Patellofemoral degenerative joint disease. TECHNICAL DOCUMENTATION: JOB ID: [id number] [employer]- All Rights Reserved Reading location - IP/workstation name: [email or web address]
[2019-06-04 12:55] LABS: ABSOLUTE EOSINOPHILS # (AUTO) 0.1 10^3/uL (0.0-0.6); ABSOLUTE LYMPHOCYTES (AUTO) 2.1 10^3/uL (0.5-4.7); ABSOLUTE MONOCYTES (AUTO) 0.6 10^3/uL (0.1-1.4); ABSOLUTE NEUT (AUTO) 4.7 10^3/uL (1.7-8.2); BASOPHILS % (AUTO) 0.2 % (0-2); EOSINOPHILS % (AUTO) 1.7 % (0-6); HEMATOCRIT 36.2 % (37.9-51.0); LYMPHOCYTES % (AUTO) 27.9 % (13-45); MEAN CORPUSCULAR HEMOGLOBIN 29.5 pg (27.0-33.4); MEAN CORPUSCULAR HGB CONC 33.2 g/dL (32.0-36.0); MEAN CORPUSCULAR VOLUME 89 fl (80-97); MONOCYTES % (AUTO) 8.4 % (3-13); PLATELET COUNT 322 10^3/uL (150-450); RED BLOOD COUNT 4.07 10^6/uL (4.35-5.55); RED CELL DISTRIBUTION WIDTH 14.8 % (11.5-14.0); SEGMENTED NEUTROPHILS % (AUTO) 61.8 % (42-78); TOTAL CELLS COUNTED % (AUTO) 100 %; WHITE BLOOD COUNT 7.7 10^3/uL (4.0-10.5)
[2019-06-04] MEDS ORDERED: MORPHINE SULFATE 10 MG/ML INJ IV ONE ×2 (13:10→15:00)
[2019-06-04] MEDS ORDERED: ONDANSETRON HCL INJ/PF 4 MG/2 ML SDV IV ONE (13:10)
[2019-06-04] MEDS ORDERED: NORMAL SALINE 1000 ML 1,000 ML IV ONE (13:10)
[2019-06-04 13:21] LABS: ALBUMIN 4.2 g/dL (3.5-5.0); ALKALINE PHOSPHATASE 135 U/L (38-126); ANION GAP 13 (5-19); ASPARTATE AMINO TRANSFERASE 31 U/L (17-59); BILIRUBIN,DIRECT 0.3 mg/dL (0.0-0.4); BILIRUBIN,TOTAL 0.8 mg/dL (0.2-1.3); BLOOD UREA NITROGEN 23 mg/dL (7-20); CALCIUM 9.9 mg/dL (8.4-10.2); CARBON DIOXIDE 21 mmol/L (22-30); CHLORIDE 106 mmol/L (98-107); GLUCOSE 93 mg/dL (75-110); POTASSIUM 4.7 mmol/L (3.6-5.0); TOTAL PROTEIN 7.6 g/dL (6.3-8.2)
--- NOTE | 2019-06-04 13:56 | ER Document Report ---
ED Fall - General Chief Complaint: Fall Stated Complaint: FALL/MULTIPLE INJURIES Time Seen by Provider: 06/04/19 11:57 Primary Care Provider: BARTOLOME PENN MD [Primary Care Provider] - Follow up as needed Mode of Arrival: Medic Information source: Relative Cannot obtain history due to: Dementia TRAVEL OUTSIDE OF THE [place] IN LAST 30 DAYS: No - HPI Notes: [facility]. He is brought in by medics. Patient is wheelchair-bound and is unable to ambulate at baseline. Today patient stood up and fell over landing on his right hip. He complains of severe right hip pain. It appears to radiate down the right leg. It is definitely worse with movement and better with rest. It appears to be moderate to severe and constant. Patient cannot characterize the pain due to his dementia. No other apparent injuries. No recent vomiting or syncope. - Related data Allergies/Adverse Reactions: No Known Allergies Allergy (Verified 05/06/13 05:40) Past Medical History - General Information source: Relative Cannot obtain history due to: Dementia - Social History Smoking Status: Former Smoker Frequency of alcohol use: None Drug Abuse: None Family History: Reviewed & Not Pertinent, Other - Unobtainable Patient has suicidal ideation: No Patient has homicidal ideation: No - Past Medical History Cardiac Medical History: Reports: Hx Hypercholesterolemia, Hx Hypertension - on meds Denies: Hx Coronary Artery Disease, Hx Heart Attack Pulmonary Medical History: Reports: Hx Bronchitis - hx of Denies: Hx Asthma, Hx COPD, Hx Pneumonia Neurological Medical History: Denies: Hx Cerebrovascular Accident, Hx Seizures Endocrine Medical History: Reports: Hx Diabetes Mellitus Type 2 Renal/ Medical History: Reports: Hx Benign Prostatic Hyperplasia. Denies: Hx Peritoneal Dialysis Musculoskeletal Medical History: Reports Hx Arthritis, Reports Hx Musculoskeletal Trauma Psychiatric Medical History: Denies: Hx Depression Traumatic Medical History: Reports: Hx Fractures Past Surgical History: Reports: Hx Appendectomy, Hx Tonsillectomy - Immunizations Immunizations up to date: No Hx Diphtheria, Pertussis, Tetanus Vaccination: No - unknown Review of Systems - Review of Systems -: Yes ROS unobtainable due to patient's medical condition - Review of symptoms are not obtainable due to patient's dementia Physical Exam - Vital signs Interpretation: Normal - General General appearance: Appears well, Alert In distress: None - HEENT Head: Normocephalic, Atraumatic Eyes: Normal Pupils: PERRL - Respiratory Respiratory status: No respiratory distress Chest status: Nontender Breath sounds: Normal Chest palpation: Normal - Cardiovascular Rhythm: Regular Heart sounds: Normal auscultation Murmur: No - Abdominal Inspection: Normal Distension: No distension Bowel sounds: Normal Tenderness: Nontender Organomegaly: No organomegaly - Back Back: Normal, Nontender - Extremities General upper extremity: Normal inspection, Nontender, Normal color, Normal ROM, Normal temperature General lower extremity: Other - Patient's right hip is significantly tender to palpation. He has extremely limited range of motion of the right hip joint secondary to pain. He does have a 1+ dorsalis pedis pulse on the right. He does have shortening but is actually of the left leg secondary to a previous fracture there. He can flex and extend all toes.. No: Balwinder's sign - Neurological Neuro grossly intact: Yes Cognition: Normal Orientation: AAOx4 [place] Coma Scale Eye Opening: Spontaneous [place] Coma Scale Verbal: Oriented [place] Coma Scale Motor: Obeys Commands Mart[place] Coma Scale Total: 15 Speech: Normal Motor strength normal: LUE, RUE, LLE, RLE Sensory: Normal - Psychological Associated symptoms: Normal affect, Normal mood - Skin Skin Temperature: Warm Skin Moisture: Dry Skin Color: Normal Course - Re-evaluation Re-evalutation: 06/04/19 13:54 Patient presented after fall has obvious right hip fracture. I have discussed the case with orthopedics and with the hospitalist. Plan at this time is for patient have operative repair of the fracture tomorrow morning. - Laboratory Result Diagrams: 06/04/19 12:43 06/04/19 12:43 Laboratory results interpreted by me: 06/04/19 06/04/19 12:43 12:43 RBC 4.07 L Hgb 12.0 L Hct 36.2 L RDW 14.8 H Carbon Dioxide 21 L BUN 23 H Alkaline Phosphatase 135 H - Diagnostic Test Radiology reviewed: Image reviewed, Reports reviewed - EKG Interpretation by Me EKG shows normal: Sinus rhythm Rate: Bradycardia - 57 Rhythm: NSR [place]/QRS: Left axis deviation Discharge - Discharge Clinical Impression: Closed right hip fracture Qualifiers: Encounter type: initial encounter Qualified Code(s): S72.001A - Fracture of unspecified part of neck of right femur, initial encounter for closed fracture Dementia Qualifiers: Dementia type: Alzheimer's disease Alzheimer's disease onset: late-onset Dementia behavioral disturbance: with behavioral disturbance Qualified Code(s): G30.1 - Alzheimer's disease with late onset; F02.81 - Dementia in other diseases classified elsewhere with behavioral disturbance Condition: Fair Disposition: ADMITTED INPATIENT Admitting Provider: Scot (Hospitalist) Unit Admitted: Medical Floor Referrals: BARTOLOME PENN MD [Primary Care Provider] - Follow up as needed
--- NOTE | 2019-06-04 14:11 | RADIOLOGY REPORT (SQ) ---
EXAM DESCRIPTION: CHEST SINGLE VIEW COMPLETED DATE/TIME: 06/04/2019 1:29 pm REASON FOR STUDY: fall/pain COMPARISON: 11/09/2017 EXAM PARAMETERS: NUMBER OF VIEWS: One view. TECHNIQUE: Single frontal radiographic view of the chest acquired. RADIATION DOSE: NA LIMITATIONS: None. FINDINGS: LUNGS AND PLEURA: Se opacification the left base. A portion of the left hemidiaphragm is indistinct. MEDIASTINUM AND HILAR STRUCTURES: No masses. Contour normal. HEART AND VASCULAR STRUCTURES: Heart normal in size. Normal vasculature. BONES: No acute findings. HARDWARE: None in the chest. OTHER: No other significant finding. IMPRESSION: Cannot exclude airspace disease in the left lower lobe. TECHNICAL DOCUMENTATION: JOB ID: [id number] [email or web address] - [employer]- All Rights Reserved Reading location - IP/workstation name: [email or web address]
[2019-06-04] MEDS ORDERED: DEXTROSE 50%-WATER 25 GM/50 ML DISP.SYRIN IV PRN ×2 (14:13)
[2019-06-04] MEDS ORDERED: DEXTROSE 40% GEL 15 GM TUBE PO PRN ×2 (14:13)
[2019-06-04] MEDS ORDERED: ONDANSETRON HCL INJ/PF 4 MG/2 ML SDV IV PRN (14:13)
[2019-06-04] MEDS ORDERED: GLUCAGON,HUMAN RECOMB 1 MG INJ SUBCUT PRN (14:13)
[2019-06-04] MEDS ORDERED: MORPHINE SULFATE 10 MG/ML INJ ONE (14:37)
[2019-06-04] MEDS: MORPHINE SULFATE 10 MG/ML INJ IV PRN (16:20)
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
--- NOTE | 2019-06-04 23:49 | EKG REPORT ---
SEVERITY:- OTHERWISE NORMAL ECG - SINUS RHYTHM LEFT AXIS DEVIATION : Confirmed by: Marilu Fuller MD 04-Jun-2019 23:48:59
[2019-06-05] MEDS: MORPHINE SULFATE 10 MG/ML INJ IV PRN ×2 (02:12→11:44)
[2019-06-05 07:33] LABS: HEMATOCRIT 32.7 % (37.9-51.0); HEMOGLOBIN 10.9 g/dL (13.5-17.0); MEAN CORPUSCULAR HEMOGLOBIN 29.6 pg (27.0-33.4); MEAN CORPUSCULAR HGB CONC 33.5 g/dL (32.0-36.0); MEAN CORPUSCULAR VOLUME 88 fl (80-97); PLATELET COUNT 247 10^3/uL (150-450); RED CELL DISTRIBUTION WIDTH 13.9 % (11.5-14.0); WHITE BLOOD COUNT 7.4 10^3/uL (4.0-10.5)
[2019-06-05 08:38] LABS: ANION GAP 10 (5-19); BLOOD UREA NITROGEN 24 mg/dL (7-20); CALCIUM 9.6 mg/dL (8.4-10.2); CARBON DIOXIDE 26 mmol/L (22-30); CHLORIDE 103 mmol/L (98-107); GLUCOSE 112 mg/dL (75-110); POTASSIUM 4.2 mmol/L (3.6-5.0)
[2019-06-05] MEDS ORDERED: CEFAZOLIN SODIUM 2 GM in DEXTROSE 5%-WATER 100 ML IV PRN (12:40)
[2019-06-05] MEDS ORDERED: TRANEXAMIC ACID INJ/PF 1,000 MG/10 ML SDV IV PRN (12:41)
[2019-06-05] MEDS: RINGERS SOLUTION,LACTATED 1,000 ML IV PRN (13:20)
[2019-06-05] MEDS ORDERED: MIDAZOLAM 2 MG/2 ML INJ ONE (14:35)
[2019-06-05] MEDS ORDERED: FENTANYL CITRATE INJ/PF 100 MCG/2 ML AMPUL ONE (14:35)
[2019-06-05] MEDS ORDERED: PROPOFOL INJ 200 MG/20 ML VIAL IV ONE (14:50)
[2019-06-05] MEDS ORDERED: BUPIVACAINE HCL 0.5%-EPI 1:200000 INJ/PF 30 ML VIAL ONE (15:57)
[2019-06-05] MEDS ORDERED: FENTANYL CITRATE INJ/PF 100 MCG/2 ML AMPUL IV PRN ×3 (16:14)
[2019-06-05] MEDS ORDERED: PROMETHAZINE HCL INJ 25 MG/1 ML VIAL IV PRN ×2 (16:14)
[2019-06-05] MEDS ORDERED: MEPERIDINE HCL/PF INJ 25 MG/1 ML DISP.SYRIN IV PRN (16:14)
[2019-06-05] MEDS ORDERED: DIPHENHYDRAMINE HCL 50 MG/ML VIAL IV PRN (16:14)
--- NOTE | 2019-06-05 16:31 | Operative Report ---
Operative Report DATE OF SURGERY: 06/05/19 PREOPERATIVE DIAGNOSIS: Right intertrochanteric femur fracture OPERATION: Open reduction internal fixation right intertrochanteric femur fracture SURGEON: GERTRUDE TRAN ANESTHESIA: LMAC ESTIMATED BLOOD LOSS: The PROCEDURE: With the patient supine on the fracture table the right lower extremity is manipulated under fluoroscopic guidance to effect an anatomic reduction. Subsequently the right leg and hindquarter prepped and draped in sterile fashion. Pins placed percutaneously down through the greater trochanter into the proximal femoral metadiaphysis. A combined reamer was then used to fashion a cortical opening. These were removed and a ball-tipped guide rods placed down the femur. Femoral length measured to be 400 mm. Subsequently Stephen gamma 311 mm x 130 degree x 400 mm nail was advanced over the ball-tipped guide lyn to an appropriate depth for a proximal interlock. A 100 mm proximal interlock is placed. Under fluoroscopic guidance a 57.5 mm distal interlock is placed. Fracture reduction hardware placement checked fluoroscopically and felt to be adequate. Wounds were both irrigated with bulb lavage and closure was interrupted Vicryl followed by kodi. Sterile compressive dressings applied the patient's return to the PACU in satisfactory condition.
--- NOTE | 2019-06-05 17:00 | RADIOLOGY REPORT (SQ) ---
EXAM DESCRIPTION: HIP IN OPERATING RM; NO CHG FLUORO COMPLETED DATE/TIME: 06/05/2019 4:51 pm REASON FOR STUDY: IM NAILING COMPARISON: None. FLUOROSCOPY TIME: 0.4 minutes Spot images saved to PACS. TECHNIQUE: Intra-operative images acquired during surgical procedure to evaluate progress. NUMBER OF IMAGES: 10 LIMITATIONS: None. FINDINGS: Fluoroscopy was provided for intraoperative procedure. Please refer to the operative repo rt for further discussion. IMPRESSION: IMAGE(S) OBTAINED DURING PROCEDURE. COMMENT: Quality ID [id number]: Final reports for procedures using fluoroscopy that document radiation exp osure indices, or exposure time and number of fluorographic images (if radiation exposure indices are not available) Please consult full operative report of the attending physician for description of the procedure. TECHNICAL DOCUMENTATION: JOB ID: [id number] [employer]- All Rights Reserved Reading location - IP/workstation name: [email or web address]
--- NOTE | 2019-06-05 17:00 | RADIOLOGY REPORT (SQ) ---
EXAM DESCRIPTION: HIP IN OPERATING RM; NO CHG FLUORO COMPLETED DATE/TIME: 06/05/2019 4:51 pm REASON FOR STUDY: IM NAILING COMPARISON: None. FLUOROSCOPY TIME: 0.4 minutes Spot images saved to PACS. TECHNIQUE: Intra-operative images acquired during surgical procedure to evaluate progress. NUMBER OF IMAGES: 10 LIMITATIONS: None. FINDINGS: Fluoroscopy was provided for intraoperative procedure. Please refer to the operative repo rt for further discussion. IMPRESSION: IMAGE(S) OBTAINED DURING PROCEDURE. COMMENT: Quality ID [id number]: Final reports for procedures using fluoroscopy that document radiation exp osure indices, or exposure time and number of fluorographic images (if radiation exposure indices are not available) Please consult full operative report of the attending physician for description of the procedure. TECHNICAL DOCUMENTATION: JOB ID: [id number] [employer]- All Rights Reserved Reading location - IP/workstation name: [email or web address]
[2019-06-05] MEDS ORDERED: PHENYLEPHRINE HCL INJ/PF 10 MG/1 ML SDV ONE (17:47)
--- NOTE | 2019-06-05 17:55 | PDOC PROGRESS REPORT ---
Subjective Progress Note for:: 06/05/19 Subjective:: No adverse events overnight. He still been a bit agitated. Planning to repair his femur fracture today. Reason For Visit: CLOSED RIGHT HIP FRACTURE, DEMENTIA Physical Exam Vital Signs: Temp Pulse Resp BP Pulse Ox 98.3 F 69 16 113/52 L 96 06/05/19 10:52 06/05/19 10:52 06/05/19 10:52 06/05/19 10:52 06/05/19 10:52 Intake & Output 06/04/19 06/05/19 06/06/19 06:59 06:59 06:59 Intake Total 1000 Output Total 1000 Balance 0 Weight 48.2 kg General appearance: PRESENT: mild distress, thin Respiratory exam: PRESENT: clear to auscultation evangelista, symmetrical, unlabored. ABSENT: accessory muscle use, chest wall tenderness, crackles, prolonged expiratory phas, rhonchi, tachypnea, wheezes Cardiovascular exam: PRESENT: RRR, +S1, +S2 Pulses: PRESENT: normal carotid pulses Vascular exam: PRESENT: normal capillary refill GI/Abdominal exam: PRESENT: normal bowel sounds, soft. ABSENT: distended, guarding, rebound, tenderness Extremities exam: ABSENT: clubbing, pedal edema Musculoskeletal exam: PRESENT: deformity - Right hip was very swollen and tender Neurological exam: PRESENT: alert, awake, oriented to person Psychiatric exam: PRESENT: agitated, anxious Focused psych exam: PRESENT: pressured speech, restlessness, other - His speech rarely makes sense Skin exam: PRESENT: dry, warm Results Laboratory Results: 06/05/19 07:02 06/05/19 07:02 06/05/19 06/05/19 07:02 07:02 WBC 7.4 RBC 3.70 L Hgb 10.9 L Hct 32.7 L MCV 88 MCH 29.6 MCHC 33.5 RDW 13.9 Plt Count 247 Sodium 138.6 Potassium 4.2 Chloride 103 Carbon Dioxide 26 Anion Gap 10 BUN 24 H Creatinine 1.01 Est GFR ( Amer) > 60 Glucose 112 H Calcium 9.6 Impressions: Hip/Pelvis X-Ray 06/04/19 00:00 IMPRESSION: Intertrochanteric fracture of the right hip. Knee X-Ray 06/04/19 00:00 IMPRESSION: Patellofemoral degenerative joint disease. Chest X-Ray 06/04/19 12:07 IMPRESSION: Cannot exclude airspace disease in the left lower lobe. Fluoroscopy 06/05/19 00:00 IMPRESSION: IMAGE(S) OBTAINED DURING PROCEDURE. Hip X-Ray 06/05/19 00:00 IMPRESSION: IMAGE(S) OBTAINED DURING PROCEDURE. Assessment and Plan - Diagnosis (1) Closed right hip fracture Qualifiers: Encounter type: initial encounter Qualified Code(s): S72.001A - Fracture of unspecified part of neck of right femur, initial encounter for closed fracture Is this a current diagnosis for this admission?: Yes Plan: Planning for operative repair today (2) Dementia Qualifiers: Dementia type: Alzheimer's disease Alzheimer's disease onset: late-onset Dementia behavioral disturbance: with behavioral disturbance Qualified Code(s): G30.1 - Alzheimer's disease with late onset; F02.81 - Dementia in other diseases classified elsewhere with behavioral disturbance Is this a current diagnosis for this admission?: Yes Plan: Have restarted some of his home medications - Time Time Spent with patient: 15-24 minutes
[2019-06-05] MEDS ORDERED: TRANEXAMIC ACID INJ/PF 1,000 MG/10 ML SDV IV ONE (18:00)
[2019-06-05] MEDS ORDERED: NORMAL SALINE 1000 ML 1,000 ML IV ONE (19:45)
[2019-06-05] MEDS: DOCUSATE SODIUM 100 MG CAPSULE PO SCH (20:09)
[2019-06-05] MEDS: LORAZEPAM 0.5 MG TABLET PO PRN (20:31)
[2019-06-05] MEDS: QUETIAPINE FUMARATE 100 MG TABLET PO SCH (23:18)
[2019-06-05] MEDS: CEFAZOLIN SODIUM 2 GM in DEXTROSE 5%-WATER 100 ML IV SCH (23:18)
[2019-06-06 05:58] LABS: HEMATOCRIT 25.7 % (37.9-51.0); MEAN CORPUSCULAR HEMOGLOBIN 29.4 pg (27.0-33.4); MEAN CORPUSCULAR HGB CONC 33.4 g/dL (32.0-36.0); MEAN CORPUSCULAR VOLUME 88 fl (80-97); PLATELET COUNT 173 10^3/uL (150-450); RED BLOOD COUNT 2.91 10^6/uL (4.35-5.55); RED CELL DISTRIBUTION WIDTH 13.8 % (11.5-14.0); WHITE BLOOD COUNT 6.5 10^3/uL (4.0-10.5)
[2019-06-06 06:01] LABS: HEMOGLOBIN 8.6 g/dL (13.5-17.0)
[2019-06-06 06:20] LABS: BLOOD UREA NITROGEN 19 mg/dL (7-20); CALCIUM 8.6 mg/dL (8.4-10.2); CARBON DIOXIDE 25 mmol/L (22-30); GLUCOSE 104 mg/dL (75-110)
[2019-06-06 06:29] LABS: ANION GAP 8 (5-19); CHLORIDE 104 mmol/L (98-107); POTASSIUM 3.8 mmol/L (3.6-5.0)
--- NOTE | 2019-06-06 06:36 | PDOC PROGRESS REPORT ---
Subjective Progress Note for:: 06/06/19 Reason For Visit: CLOSED RIGHT HIP FRACTURE, DEMENTIA 79-year-old white male now postop day 1 status post ORIF of a right intertrochanteric femur fracture. Patient had Ativan administered last night which significantly reduced his level of agitation. Physical Exam Vital Signs: Temp Pulse Resp BP Pulse Ox 36.8 C 87 18 95/69 L 95 06/06/19 06:06 06/06/19 06:06 06/06/19 06:06 06/06/19 06:06 06/06/19 06:06 Intake & Output 06/04/19 06/05/19 06/06/19 06:59 06:59 06:59 Intake Total 3400 Output Total 1150 Balance 2250 Weight 48.2 kg 48.5 kg Physical Exam: Elderly white male lying still in bed. Patient appears to be in no discomfort. Agitation has resolved. General appearance: PRESENT: no acute distress Respiratory exam: PRESENT: unlabored Cardiovascular exam: PRESENT: RRR Extremities exam: PRESENT: other - Right lower extremity dressings clean dry and intact. Leg lengths are equal. Brisk capillary refill. Results Laboratory Results: 06/06/19 05:20 06/05/19 06/05/19 06/06/19 07:02 07:02 05:20 WBC 7.4 6.5 RBC 3.70 L 2.91 L Hgb 10.9 L 8.6 L D Hct 32.7 L 25.7 L MCV 88 88 MCH 29.6 29.4 MCHC 33.5 33.4 RDW 13.9 13.8 Plt Count 247 173 Sodium 138.6 Potassium 4.2 Chloride 103 Carbon Dioxide 26 Anion Gap 10 BUN 24 H Creatinine 1.01 Est GFR ( Amer) > 60 Glucose 112 H Calcium 9.6 Impressions: Hip/Pelvis X-Ray 06/04/19 00:00 IMPRESSION: Intertrochanteric fracture of the right hip. Knee X-Ray 06/04/19 00:00 IMPRESSION: Patellofemoral degenerative joint disease. Chest X-Ray 06/04/19 12:07 IMPRESSION: Cannot exclude airspace disease in the left lower lobe. Fluoroscopy 06/05/19 00:00 IMPRESSION: IMAGE(S) OBTAINED DURING PROCEDURE. Hip X-Ray 06/05/19 00:00 IMPRESSION: IMAGE(S) OBTAINED DURING PROCEDURE. Status: Imported from PACS Assessment & Plan - Diagnosis (1) Closed right hip fracture Qualifiers: Encounter type: initial encounter Qualified Code(s): S72.001A - Fracture of unspecified part of neck of right femur, initial encounter for closed fracture Is this a current diagnosis for this admission?: Yes Plan: Mobilized with physical therapy and weightbearing as tolerated basis. Anticipate the need for care home facility placement. - Time Time Spent with patient: 15-24 minutes Anticipated discharge: SNF Within: when bed available
[2019-06-06] MEDS: PANTOPRAZOLE SODIUM 20 MG TABLET.DR PO SCH (06:42)
[2019-06-06] MEDS: CEFAZOLIN SODIUM 2 GM in DEXTROSE 5%-WATER 100 ML IV SCH ×3 (06:42→22:18)
[2019-06-06] MEDS: RINGERS SOLUTION,LACTATED 1,000 ML IV PRN ×2 (06:44→13:36)
[2019-06-06] MEDS ORDERED: INFLUENZA QUAD (6MOS+) 2019-20 VAC 0.5 ML SYR IM ONE (08:00)
[2019-06-06] MEDS: LORAZEPAM 0.5 MG TABLET PO PRN ×2 (08:11→16:31)
[2019-06-06] MEDS: SERTRALINE HCL 50 MG TABLET PO SCH (12:06)
[2019-06-06] MEDS: DOCUSATE SODIUM 100 MG CAPSULE PO SCH ×2 (12:06→17:58)
[2019-06-06] MEDS: MORPHINE SULFATE 10 MG/ML INJ IV PRN ×2 (13:50→20:01)
--- NOTE | 2019-06-06 18:21 | PDOC PROGRESS REPORT ---
Subjective Progress Note for:: 06/06/19 Subjective:: No adverse events overnight. No new complaints. Vital signs been stable. Last night his blood pressures dropped a little bit and he was tachycardic when he came out of surgery but we gave him some volume resuscitation and he is done fine since. He was sleeping comfortably this morning. Pain is been well controlled. Reason For Visit: CLOSED RIGHT HIP FRACTURE, DEMENTIA Physical Exam Vital Signs: Temp Pulse Resp BP Pulse Ox 98.5 F 72 16 131/67 H 95 06/06/19 16:00 06/06/19 16:00 06/06/19 16:00 06/06/19 16:00 06/06/19 16:00 Intake & Output 06/05/19 06/06/19 06/07/19 06:59 06:59 06:59 Intake Total 4500 2200 Output Total 1150 Balance 3350 2200 Weight 48.2 kg 48.5 kg 48.5 kg General appearance: PRESENT: No apparent distress, thin Respiratory exam: PRESENT: clear to auscultation evangelista, symmetrical, unlabored. ABSENT: accessory muscle use, chest wall tenderness, crackles, prolonged expiratory phas, rhonchi, tachypnea, wheezes Cardiovascular exam: PRESENT: RRR, +S1, +S2 Pulses: PRESENT: normal carotid pulses Vascular exam: PRESENT: normal capillary refill GI/Abdominal exam: PRESENT: normal bowel sounds, soft. ABSENT: distended, guarding, rebound, tenderness Extremities exam: ABSENT: clubbing, pedal edema Musculoskeletal exam: PRESENT: Incisions on the right hip and right thigh are cleanly dressed Neurological exam: PRESENT: Drowsy but arousable, oriented to person Skin exam: PRESENT: dry, warm Results Laboratory Results: 06/06/19 05:20 06/06/19 05:20 06/06/19 06/06/19 05:20 05:20 WBC 6.5 RBC 2.91 L Hgb 8.6 L D Hct 25.7 L MCV 88 MCH 29.4 MCHC 33.4 RDW 13.8 Plt Count 173 Sodium 136.7 L Potassium 3.8 Chloride 104 Carbon Dioxide 25 Anion Gap 8 BUN 19 Creatinine 0.82 Est GFR ( Amer) > 60 Glucose 104 Calcium 8.6 Impressions: Hip/Pelvis X-Ray 06/04/19 00:00 IMPRESSION: Intertrochanteric fracture of the right hip. Knee X-Ray 06/04/19 00:00 IMPRESSION: Patellofemoral degenerative joint disease. Chest X-Ray 06/04/19 12:07 IMPRESSION: Cannot exclude airspace disease in the left lower lobe. Fluoroscopy 06/05/19 00:00 IMPRESSION: IMAGE(S) OBTAINED DURING PROCEDURE. Hip X-Ray 06/05/19 00:00 IMPRESSION: IMAGE(S) OBTAINED DURING PROCEDURE. Assessment and Plan - Diagnosis (1) Closed right hip fracture Qualifiers: Encounter type: initial encounter Qualified Code(s): S72.001A - Fracture of unspecified part of neck of right femur, initial encounter for closed fracture Is this a current diagnosis for this admission?: Yes Plan: Status post surgical repair. Apparently there was a fracture in the distal femur as well that also got repaired. DVT prophylaxis and weightbearing recom mendations per orthopedics. (2) Dementia Qualifiers: Dementia type: Alzheimer's disease Alzheimer's disease onset: late-onset Dementia behavioral disturbance: with behavioral disturbance Qualified Code(s): G30.1 - Alzheimer's disease with late onset; F02.81 - Dementia in other diseases classified elsewhere with behavioral disturbance Is this a current diagnosis for this admission?: Yes Plan: Have restarted some of his home medications - Time Time Spent with patient: 15-24 minutes
[2019-06-06] MEDS: QUETIAPINE FUMARATE 100 MG TABLET PO SCH (22:24)
[2019-06-07] MEDS: MORPHINE SULFATE 10 MG/ML INJ IV PRN ×3 (04:30→17:58)
[2019-06-07] MEDS: PANTOPRAZOLE SODIUM 20 MG TABLET.DR PO SCH (06:47)
[2019-06-07] MEDS: CEFAZOLIN SODIUM 2 GM in DEXTROSE 5%-WATER 100 ML IV SCH ×2 (06:47→14:56)
[2019-06-07 07:22] LABS: HEMATOCRIT 24.2 % (37.9-51.0); HEMOGLOBIN 8.1 g/dL (13.5-17.0); MEAN CORPUSCULAR HEMOGLOBIN 29.4 pg (27.0-33.4); MEAN CORPUSCULAR HGB CONC 33.4 g/dL (32.0-36.0); MEAN CORPUSCULAR VOLUME 88 fl (80-97); PLATELET COUNT 179 10^3/uL (150-450); RED BLOOD COUNT 2.75 10^6/uL (4.35-5.55); RED CELL DISTRIBUTION WIDTH 13.8 % (11.5-14.0); WHITE BLOOD COUNT 6.7 10^3/uL (4.0-10.5)
[2019-06-07 07:36] LABS: ANION GAP 9 (5-19); BLOOD UREA NITROGEN 14 mg/dL (7-20); CALCIUM 8.2 mg/dL (8.4-10.2); CARBON DIOXIDE 24 mmol/L (22-30); CHLORIDE 106 mmol/L (98-107); GLUCOSE 114 mg/dL (75-110); POTASSIUM 3.5 mmol/L (3.6-5.0)
[2019-06-07] MEDS: DOCUSATE SODIUM 100 MG CAPSULE PO SCH ×3 (10:00→17:59)
[2019-06-07] MEDS: SERTRALINE HCL 50 MG TABLET PO SCH (10:16)
[2019-06-07] MEDS: LORAZEPAM 0.5 MG TABLET PO PRN (10:18)
--- NOTE | 2019-06-07 13:56 | PDOC PROGRESS REPORT ---
Subjective Progress Note for:: 06/07/19 Subjective:: Patient lying in bed comfortably. History of dementia thus subjective complaints limited. No issues overnight. Reason For Visit: CLOSED RIGHT HIP FRACTURE, DEMENTIA Physical Exam Vital Signs: Temp Pulse Resp BP Pulse Ox 98.6 F 84 16 121/59 L 91 L 06/06/19 23:10 06/06/19 23:10 06/06/19 16:00 06/06/19 23:10 06/06/19 23:10 Intake & Output 06/06/19 06/07/19 06/08/19 06:59 06:59 06:59 Intake Total 4500 2500 100 Output Total 1150 Balance 3350 2500 100 Weight 48.5 kg 48.6 kg Musculoskeletal exam: PRESENT: other - Right hip: Dressing clean/dry/intact no erythema or drainage. Moderate thigh swelling without change. No sensory deficits. No calf tenderness. Results Laboratory Results: 06/07/19 06:27 06/07/19 06:27 06/07/19 06/07/19 06:27 06:27 WBC 6.7 RBC 2.75 L Hgb 8.1 L Hct 24.2 L MCV 88 MCH 29.4 MCHC 33.4 RDW 13.8 Plt Count 179 Sodium 138.9 Potassium 3.5 L Chloride 106 Carbon Dioxide 24 Anion Gap 9 BUN 14 Creatinine 0.71 Est GFR ( Amer) > 60 Glucose 114 H Calcium 8.2 L Impressions: Hip/Pelvis X-Ray 06/04/19 00:00 IMPRESSION: Intertrochanteric fracture of the right hip. Knee X-Ray 06/04/19 00:00 IMPRESSION: Patellofemoral degenerative joint disease. Chest X-Ray 06/04/19 12:07 IMPRESSION: Cannot exclude airspace disease in the left lower lobe. Fluoroscopy 06/05/19 00:00 IMPRESSION: IMAGE(S) OBTAINED DURING PROCEDURE. Hip X-Ray 06/05/19 00:00 IMPRESSION: IMAGE(S) OBTAINED DURING PROCEDURE. Assessment & Plan - Diagnosis (1) Closed right hip fracture Qualifiers: Encounter type: initial encounter Qualified Code(s): S72.001A - Fracture of unspecified part of neck of right femur, initial encounter for closed fracture Is this a current diagnosis for this admission?: Yes Plan: Status post right hip cephalo-medullary nail 1. Physical therapy weightbearing as tolerated 2. Xarelto for DVT prophylaxis 3. Acute on chronic blood loss anemia continue to monitor 4. Discharge planning given patient's history of dementia will require longterm facility - Time Time Spent with patient: Less than 15 minutes
[2019-06-07] MEDS: RINGERS SOLUTION,LACTATED 1,000 ML IV PRN ×2 (14:58→22:39)
--- NOTE | 2019-06-07 16:59 | PDOC PROGRESS REPORT ---
Subjective Progress Note for:: 06/07/19 Subjective:: No adverse events overnight. Blood pressures in the normal range. Urine output is picked up. Appetite is still not very good. His mental status seems like it is back to his baseline. Reason For Visit: CLOSED RIGHT HIP FRACTURE, DEMENTIA Physical Exam Vital Signs: Temp Pulse Resp BP Pulse Ox 97.6 F 77 17 141/80 H 93 06/07/19 12:41 06/07/19 12:41 06/07/19 12:41 06/07/19 12:41 06/07/19 12:41 Intake & Output 06/06/19 06/07/19 06/08/19 06:59 06:59 06:59 Intake Total 4500 3500 220 Output Total 1150 Balance 3350 3500 220 Weight 48.5 kg 48.6 kg General appearance: PRESENT: mild distress, thin Respiratory exam: PRESENT: clear to auscultation evangelista, symmetrical, unlabored. ABSENT: accessory muscle use, chest wall tenderness, crackles, prolonged expiratory phas, rhonchi, tachypnea, wheezes Cardiovascular exam: PRESENT: RRR, +S1, +S2 Pulses: PRESENT: normal carotid pulses Vascular exam: PRESENT: normal capillary refill GI/Abdominal exam: PRESENT: normal bowel sounds, soft. ABSENT: distended, guarding, rebound, tenderness Extremities exam: ABSENT: clubbing, pedal edema Musculoskeletal exam: PRESENT: Incisions on right hip and knee were cleanly bandaged Neurological exam: PRESENT: alert, awake, oriented to person Psychiatric exam: PRESENT: agitated, anxious Focused psych exam: PRESENT: pressured speech, restlessness, other - His speech rarely makes sense Skin exam: PRESENT: dry, warm Results Laboratory Results: 06/07/19 06:27 06/07/19 06:27 06/07/19 06/07/19 06:27 06:27 WBC 6.7 RBC 2.75 L Hgb 8.1 L Hct 24.2 L MCV 88 MCH 29.4 MCHC 33.4 RDW 13.8 Plt Count 179 Sodium 138.9 Potassium 3.5 L Chloride 106 Carbon Dioxide 24 Anion Gap 9 BUN 14 Creatinine 0.71 Est GFR ( Amer) > 60 Glucose 114 H Calcium 8.2 L Impressions: Hip/Pelvis X-Ray 06/04/19 00:00 IMPRESSION: Intertrochanteric fracture of the right hip. Knee X-Ray 06/04/19 00:00 IMPRESSION: Patellofemoral degenerative joint disease. Chest X-Ray 06/04/19 12:07 IMPRESSION: Cannot exclude airspace disease in the left lower lobe. Fluoroscopy 06/05/19 00:00 IMPRESSION: IMAGE(S) OBTAINED DURING PROCEDURE. Hip X-Ray 06/05/19 00:00 IMPRESSION: IMAGE(S) OBTAINED DURING PROCEDURE. Assessment and Plan - Diagnosis (1) Closed right hip fracture Qualifiers: Encounter type: initial encounter Qualified Code(s): S72.001A - Fracture of unspecified part of neck of right femur, initial encounter for closed fracture Is this a current diagnosis for this admission?: Yes Plan: Status post surgical repair. Apparently there was a fracture in the distal femur as well that also got repaired. DVT prophylaxis and weightbearing recommendations per orthopedics. Monitoring his blood counts to see if he develops a postoperative anemia. (2) Dementia Qualifiers: Dementia type: Alzheimer's disease Alzheimer's disease onset: late-onset Dementia behavioral disturbance: with behavioral disturbance Qualified Code(s): G30.1 - Alzheimer's disease with late onset; F02.81 - Dementia in other diseases classified elsewhere with behavioral disturbance Is this a current diagnosis for this admission?: Yes Plan: He is on his home medications, mental status is at baseline - Time Time Spent with patient: 15-24 minutes
[2019-06-07] MEDS: RIVAROXABAN 10 MG TABLET PO SCH (17:54)
[2019-06-07] MEDS ORDERED: HYDRALAZINE HCL INJ/PF 20 MG/1 ML SDV IV PRN (21:33)
[2019-06-07] MEDS: QUETIAPINE FUMARATE 100 MG TABLET PO SCH (22:41)
[2019-06-08] MEDS: MORPHINE SULFATE 10 MG/ML INJ IV PRN ×5 (00:27→21:28)
[2019-06-08] MEDS: PANTOPRAZOLE SODIUM 20 MG TABLET.DR PO SCH (05:07)
[2019-06-08] MEDS: RINGERS SOLUTION,LACTATED 1,000 ML IV PRN (05:08)
[2019-06-08] MEDS: DOCUSATE SODIUM 100 MG CAPSULE PO SCH ×2 (09:41→18:15)
[2019-06-08] MEDS: SERTRALINE HCL 50 MG TABLET PO SCH (09:41)
[2019-06-08 11:52] LABS: HEMATOCRIT 27.3 % (37.9-51.0); HEMOGLOBIN 9.1 g/dL (13.5-17.0); MEAN CORPUSCULAR HEMOGLOBIN 29.1 pg (27.0-33.4); MEAN CORPUSCULAR HGB CONC 33.5 g/dL (32.0-36.0); MEAN CORPUSCULAR VOLUME 87 fl (80-97); PLATELET COUNT 203 10^3/uL (150-450); RED BLOOD COUNT 3.13 10^6/uL (4.35-5.55); RED CELL DISTRIBUTION WIDTH 13.8 % (11.5-14.0); WHITE BLOOD COUNT 6.4 10^3/uL (4.0-10.5)
[2019-06-08] MEDS: LORAZEPAM 0.5 MG TABLET PO PRN (14:03)
--- NOTE | 2019-06-08 16:33 | PDOC PROGRESS REPORT ---
Subjective Progress Note for:: 06/08/19 Subjective:: No adverse events overnight. Appetite has improved and is eating a little bit better. Mental status is at baseline. Blood pressure has improved and we stopped his IV fluids today. Reason For Visit: CLOSED RIGHT HIP FRACTURE, DEMENTIA Physical Exam Vital Signs: Temp Pulse Resp BP Pulse Ox 97.8 F 80 17 153/73 H 90 L 06/08/19 11:00 06/08/19 11:00 06/08/19 11:00 06/08/19 11:00 06/08/19 11:00 Intake & Output 06/07/19 06/08/19 06/09/19 06:59 06:59 06:59 Intake Total 3500 2412 970 Balance 3500 2412 970 Weight 48.6 kg 48.4 kg General appearance: PRESENT: mild distress, thin Respiratory exam: PRESENT: clear to auscultation evangelista, symmetrical, unlabored. ABSENT: accessory muscle use, chest wall tenderness, crackles, prolonged expiratory phas, rhonchi, tachypnea, wheezes Cardiovascular exam: PRESENT: RRR, +S1, +S2 Pulses: PRESENT: normal carotid pulses Vascular exam: PRESENT: normal capillary refill GI/Abdominal exam: PRESENT: normal bowel sounds, soft. ABSENT: distended, guard ing, rebound, tenderness Extremities exam: ABSENT: clubbing, pedal edema Musculoskeletal exam: PRESENT: Incisions on right hip and knee were cleanly b andaged Neurological exam: PRESENT: alert, awake, oriented to person Psychiatric exam: PRESENT: agitated, anxious Focused psych exam: PRESENT: pressured speech, restlessness, other - His speech is typically nonsensical Skin exam: PRESENT: dry, warm Results Laboratory Results: 06/08/19 11:41 06/07/19 06:27 06/08/19 11:41 WBC 6.4 RBC 3.13 L Hgb 9.1 L Hct 27.3 L MCV 87 MCH 29.1 MCHC 33.5 RDW 13.8 Plt Count 203 Impressions: Hip/Pelvis X-Ray 06/04/19 00:00 IMPRESSION: Intertrochanteric fracture of the right hip. Knee X-Ray 06/04/19 00:00 IMPRESSION: Patellofemoral degenerative joint disease. Chest X-Ray 06/04/19 12:07 IMPRESSION: Cannot exclude airspace disease in the left lower lobe. Fluoroscopy 06/05/19 00:00 IMPRESSION: IMAGE(S) OBTAINED DURING PROCEDURE. Hip X-Ray 06/05/19 00:00 IMPRESSION: IMAGE(S) OBTAINED DURING PROCEDURE. Assessment and Plan - Diagnosis (1) Closed right hip fracture Qualifiers: Encounter type: initial encounter Qualified Code(s): S72.001A - Fracture of unspecified part of neck of right femur, initial encounter for closed fracture Is this a current diagnosis for this admission?: Yes Plan: Status post surgical repair. Apparently there was a fracture in the distal femur as well that also got repaired. DVT prophylaxis and weightbearing rec ommendations per orthopedics. Anticipate transfer back to [facility] on Monday. (2) Dementia Qualifiers: Dementia type: Alzheimer's disease Alzheimer's disease onset: late-onset Dementia behavioral disturbance: with behavioral disturbance Qualified Code(s): G30.1 - Alzheimer's disease with late onset; F02.81 - Dementia in other diseases classified elsewhere with behavioral disturbance Is this a current diagnosis for this admission?: Yes Plan: He is on his home medications, mental status is at baseline - Time Time Spent with patient: 15-24 minutes
[2019-06-08] MEDS: TAMSULOSIN HCL 0.4 MG CAP.SR.24H PO SCH (18:15)
[2019-06-08] MEDS: RIVAROXABAN 10 MG TABLET PO SCH (18:16)
[2019-06-08] MEDS: QUETIAPINE FUMARATE 100 MG TABLET PO SCH (21:33)
[2019-06-09] MEDS: MORPHINE SULFATE 10 MG/ML INJ IV PRN ×4 (04:12→21:53)
[2019-06-09] MEDS: PANTOPRAZOLE SODIUM 20 MG TABLET.DR PO SCH (05:17)
--- NOTE | 2019-06-09 08:13 | PDOC PROGRESS REPORT ---
Subjective Progress Note for:: 06/09/19 Reason For Visit: CLOSED RIGHT HIP FRACTURE, DEMENTIA 79-year-old white male with dementia now postop day 4 status post open reduction internal fixation of a right intertrochanteric femur fracture. Physical Exam Vital Signs: Temp Pulse Resp BP Pulse Ox 36.7 C 83 16 148/76 H 91 L 06/09/19 03:40 06/09/19 03:40 06/09/19 03:40 06/09/19 03:40 06/09/19 03:40 Intake & Output 06/08/19 06/09/19 06/10/19 06:59 06:59 06:59 Intake Total 2412 1070 Balance 2412 1070 Weight 48.4 kg 49.5 kg Physical Exam: Elderly white male lying in bed quite confused. Unintelligible verbalizations. General appearance: PRESENT: no acute distress, mild distress Respiratory exam: PRESENT: unlabored Musculoskeletal exam: PRESENT: other - Right lower extremity dressings clean dry and intact Results Laboratory Results: 06/08/19 11:41 06/07/19 06:27 06/08/19 11:41 WBC 6.4 RBC 3.13 L Hgb 9.1 L Hct 27.3 L MCV 87 MCH 29.1 MCHC 33.5 RDW 13.8 Plt Count 203 Impressions: Hip/Pelvis X-Ray 06/04/19 00:00 IMPRESSION: Intertrochanteric fracture of the right hip. Knee X-Ray 06/04/19 00:00 IMPRESSION: Patellofemoral degenerative joint disease. Chest X-Ray 06/04/19 12:07 IMPRESSION: Cannot exclude airspace disease in the left lower lobe. Fluoroscopy 06/05/19 00:00 IMPRESSION: IMAGE(S) OBTAINED DURING PROCEDURE. Hip X-Ray 06/05/19 00:00 IMPRESSION: IMAGE(S) OBTAINED DURING PROCEDURE. Status: Imported from PACS Assessment & Plan - Diagnosis (1) Closed right hip fracture Qualifiers: Encounter type: initial encounter Qualified Code(s): S72.001A - Fracture of unspecified part of neck of right femur, initial encounter for closed fracture Is this a current diagnosis for this admission?: Yes Plan: Out of bed to chair as tolerated. Discharge planning needs to be involved with intermediate facility placement - Time Time Spent with patient: 15-24 minutes Anticipated discharge: SNF Within: when bed available
[2019-06-09] MEDS: SERTRALINE HCL 50 MG TABLET PO SCH ×2 (09:47→10:24)
[2019-06-09] MEDS: LORAZEPAM 0.5 MG TABLET PO PRN (09:47)
[2019-06-09] MEDS: DOCUSATE SODIUM 100 MG CAPSULE PO SCH ×3 (09:47→19:14)
[2019-06-09] MEDS ORDERED: LORAZEPAM INJ 2 MG/1 ML VIAL IV PRN (15:13)
--- NOTE | 2019-06-09 16:04 | PDOC PROGRESS REPORT ---
Subjective Progress Note for:: 06/09/19 Subjective:: No adverse events overnight. Appetite has improved and is eating a little bit better. Mental status is at baseline. Blood pressure stable. Reason For Visit: CLOSED RIGHT HIP FRACTURE, DEMENTIA Physical Exam Vital Signs: Temp Pulse Resp BP Pulse Ox 97.6 F 66 16 155/71 H 91 L 06/09/19 12:11 06/09/19 12:11 06/09/19 03:40 06/09/19 12:11 06/09/19 12:11 Intake & Output 06/08/19 06/09/19 06/10/19 06:59 06:59 06:59 Intake Total 2412 1070 Balance 2412 1070 Weight 48.4 kg 49.5 kg General appearance: PRESENT: mild distress, thin Respiratory exam: PRESENT: clear to auscultation evangelista, symmetrical, unlabored. ABSENT: accessory muscle use, chest wall tenderness, crackles, prolonged ex piratory phas, rhonchi, tachypnea, wheezes Cardiovascular exam: PRESENT: RRR, +S1, +S2 Pulses: PRESENT: normal carotid pulses Vascular exam: PRESENT: normal capillary refill GI/Abdominal exam: PRESENT: normal bowel sounds, soft. ABSENT: distended, guarding, rebound, tenderness Extremities exam: ABSENT: clubbing, pedal edema Musculoskeletal exam: PRESENT: Incisions on right hip and knee were cleanly bandaged Neurological exam: PRESENT: alert, awake, oriented to person Psychiatric exam: PRESENT: agitated, anxious Focused psych exam: PRESENT: pressured speech, restlessness, other - His speech is typically nonsensical Skin exam: PRESENT: dry, warm Results Laboratory Results: 06/08/19 11:41 06/07/19 06:27 Impressions: Hip/Pelvis X-Ray 06/04/19 00:00 IMPRESSION: Intertrochanteric fracture of the right hip. Knee X-Ray 06/04/19 00:00 IMPRESSION: Patellofemoral degenerative joint disease. Chest X-Ray 06/04/19 12:07 IMPRESSION: Cannot exclude airspace disease in the left lower lobe. Fluoroscopy 06/05/19 00:00 IMPRESSION: IMAGE(S) OBTAINED DURING PROCEDURE. Hip X-Ray 06/05/19 00:00 IMPRESSION: IMAGE(S) OBTAINED DURING PROCEDURE. Assessment and Plan - Diagnosis (1) Closed right hip fracture Qualifiers: Encounter type: initial encounter Qualified Code(s): S72.001A - Fracture of unspecified part of neck of right femur, initial encounter for closed fracture Is this a current diagnosis for this admission?: Yes Plan: Status post surgical repair. Apparently there was a fracture in the distal femur as well that also got repaired. DVT prophylaxis and weightbearing recommendations per orthopedics. Anticipate transfer back to [facility] on Monday. (2) Dementia Qualifiers: Dementia type: Alzheimer's disease Alzheimer's disease onset: late-onset Dementia behavioral disturbance: with behavioral disturbance Qualified Code(s): G30.1 - Alzheimer's disease with late onset; F02.81 - Dementia in other diseases classified elsewhere with behavioral disturbance Is this a current diagnosis for this admission?: Yes Plan: He is on his home medications, mental status is at baseline - Time Time Spent with patient: 15-24 minutes
[2019-06-09] MEDS: RIVAROXABAN 10 MG TABLET PO SCH (19:14)
[2019-06-09] MEDS: TAMSULOSIN HCL 0.4 MG CAP.SR.24H PO SCH (19:14)
[2019-06-09] MEDS: QUETIAPINE FUMARATE 100 MG TABLET PO SCH (21:50)
[2019-06-10 00:01] VITALS: BP 133/66
[2019-06-10] MEDS: MORPHINE SULFATE 10 MG/ML INJ IV PRN ×2 (05:21→11:02)
[2019-06-10] MEDS: PANTOPRAZOLE SODIUM 20 MG TABLET.DR PO SCH (05:22)
[2019-06-10] MEDS: SERTRALINE HCL 50 MG TABLET PO SCH (11:00)
[2019-06-10] MEDS: DOCUSATE SODIUM 100 MG CAPSULE PO SCH (11:00)
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
== END 2019-06-10 17:00 | DRG 481 ==
LOC: ER 11:01 → EH 13:59 → 4S 15:59
PROVIDERS: ADMIT Family Medicine; ATTEND Family Medicine
PROC: 0QH634Z Insertion of Internal Fixation Device into Right Upper Femur, Percutaneous Approach (ICD-10-PCS; principal; 2019-06-05 13:15)
DX: S72.001A Fracture of unspecified part of neck of right femur, initial encounter for closed fracture (principal); F02.81 Dementia in other diseases classified elsewhere, unspecified severity, with behavioral disturbance; G30.1 Alzheimer's disease with late onset; D64.9 Anemia, unspecified; E78.5 Hyperlipidemia, unspecified; E11.9 Type 2 diabetes mellitus without complications; I10 Essential (primary) hypertension; W05.0XXA Fall from non-moving wheelchair, initial encounter; I95.81 Postprocedural hypotension; R00.0 Tachycardia, unspecified; M19.90 Unspecified osteoarthritis, unspecified site; Z79.01 Long term (current) use of anticoagulants; Z99.3 Dependence on wheelchair; Y92.89 Other specified places as the place of occurrence of the external cause
CPT/HCPCS: 01230; 36415; 71045; 80048; 80053; 85025; 85027; 93005; 93010; 94799; 96374; 96375; 99284; C1713; C1769; J0360; J0690; J2060; J2250; J2270; J2370; J2405; J2704; J3010; J3490; J7030; J7060; J7120